=== PATIENT | male | born 1940 | race Caucasian/White ===

== ENCOUNTER → 2018-07-12 14:58 | Outpatient (CLI) | payer MEDICARE, OTHER, SELFPAY ==
--- NOTE | 2018-07-12 15:00 | DI.RAD.S_ITS ---
PROCEDURE: XR WRIST LT MIN 3V INDICATIONS: Left wrist injury TECHNIQUE: 4 views of the wrist were acquired. COMPARISON: None. FINDINGS: Bones: No fractures or dislocations. No suspicious bony lesions. Scattered degenerative spurring and subchondral cystic change Scaphoid view: No fracture identified. Soft tissues: No suspicious soft tissue calcifications. There are scattered vascular calcifications IMPRESSION: No fracture. If the patient's symptoms do not improve consider further evaluation with repeat radiographs in 10 days, or noncontrast MRI. Dictated by: Stewart Celestin M.D. on 07/12/2018 at 16:57 Approved by: Stewart Celestin M.D. on 07/12/2018 at 16:59
== END ==
PROVIDERS: Family Provider Family Medicine; PCP Family Medicine; Visit Provider Registered Nurse
DX: S69.92XA Unspecified injury of left wrist, hand and finger(s), initial encounter (principal)
CPT/HCPCS: 73110

== ENCOUNTER → 2018-12-22 08:45 | Outpatient (CLI) | payer MEDICARE, OTHER, SELFPAY ==
[2018-12-22 10:12] LABS: Add Manual Diff / Slide Review NO; Basophils Absolute Auto 0 /uL (0-100); Basophils Percent Auto 0.5 % (0-2); Eosinophils Absolute Auto 100 /uL (0-450); Hematocrit 43.8 % (41-53); Hemoglobin 14.6 g/dL (13.5-17.5); Lymphocytes Absolute Auto 900 /uL (1100-4500); Lymphocytes Percent Auto 17.8 % (25-40); Mean Corpuscular HGB Conc 33.3 % (30-36); Mean Corpuscular Hemoglobin 31.1 PG (26-34); Mean Corpuscular Volume 93.3 fL (80-100); Monocytes Absolute Auto 500 /uL (0-900); Neutrophils Absolute Auto 3300 /uL (1500-7000); Neutrophils Percent Auto 67.7 % (50-75); Platelet Count 208 X10^3/uL (150-400); Red Blood Cell Count 4.69 X10^6/uL (4.5-5.9); Red Cell Distribution Width 13.5 % (11.6-14.8); White Blood Cell Count 4.9 X10^3/uL (4.5-11.0)
[2018-12-22 10:21] LABS: Alanine Aminotransferase 30 IU/L (21-72); Albumin 4.1 g/dL (3.5-5.0); Albumin Globulin Ratio 1.4 (1.0-2.8); Alkaline Phosphatase 64 U/L (38-126); Aspartate Aminotransferase 33 IU/L (17-59); BUN Creatinine Ratio 22.2 (6-22); Bilirubin Total 0.6 mg/dL (0.2-1.3); Blood Urea Nitrogen 20 mg/dL (9-20); Calcium 8.9 mg/dL (8.4-10.2); Carbon Dioxide 28 mmol/L (22-32); Chloride 102 mmol/L (98-107); Cholesterol 197 mg/dL (140-199); Estimated Glomerular Filt Rate > 60.0 mL/min (>60); Glucose 100 mg/dL (80-110); HDL Cholesterol 63 mg/dL (40-60); HEMOLYSIS < 15 (0-50); LDL Cholesterol Calculated 120 mg/dL (<100); Potassium 4.7 mmol/L (3.4-5.1); Sodium 137 mmol/L (137-145); Total Protein 7.1 g/dL (6.3-8.2); Triglycerides 68 mg/dL (35-150)
== END ==
PROVIDERS: PCP Family Medicine; Visit Provider Family Medicine
DX: I10 Essential (primary) hypertension (principal); R00.2 Palpitations; R07.89 Other chest pain; R89.9 Unspecified abnormal finding in specimens from other organs, systems and tissues; Z13.0 Encounter for screening for diseases of the blood and blood-forming organs and certain disorders involving the immune mechanism; Z13.1 Encounter for screening for diabetes mellitus; Z13.220 Encounter for screening for lipoid disorders; Z13.29 Encounter for screening for other suspected endocrine disorder
CPT/HCPCS: 36415; 80053; 80061; 84443; 85025

== ENCOUNTER → 2019-06-13 09:55 | Outpatient (CLI) | payer MEDICARE, OTHER, SELFPAY ==
[2019-06-13 11:04] LABS: Prostate Specific Antigen 1.86 ng/mL (0.10-4.00)
== END ==
PROVIDERS: Family Provider Family Medicine; PCP Family Medicine; Visit Provider Nurse Practitioner Family
DX: R30.0 Dysuria (principal); Z12.5 Encounter for screening for malignant neoplasm of prostate
CPT/HCPCS: 36415; 84153; G0103

== ENCOUNTER 2019-12-01 16:29 | Inpatient (IN) | payer MEDICARE, OTHER, SELFPAY ==
[2019-12-01] VITALS (23 sets, daily range): BP systolic 71–196; BP diastolic 40–96; PULSE 39–66; RESP 15–30; TEMP 36.2–36.8; O2SAT 94–100; BMI 22.4
--- NOTE | 2019-12-01 16:43 | DI.RAD.S_ITS ---
PROCEDURE: XR RIBS BI MIN 4V W CXR1V INDICATIONS: fell, 2 days ago, now with left rib and back pain. TECHNIQUE: 4 views of the bilateral ribs were acquired, along with a single view chest. COMPARISON: None. FINDINGS: Surgical changes and devices: None. Bones and chest wall: There is a potential minimally displaced left posterior 12th rib fracture. No displaced right-sided rib fractures are seen. Remote left posterolateral rib fractures are seen. Age-appropriate bony degenerative changes are seen. No suspicious lytic or blastic lesions are seen. Lungs and pleura: There is a moderate left-sided pneumothorax seen. No pleural effusions. Lungs appear clear. Mediastinum: Mediastinal contours appear normal. Heart size is normal. IMPRESSION: There is a moderate left-sided pneumothorax. Potential minimally displaced left posterior 12th rib fracture. Remote left posterior rib fractures are also seen. Note: A critical finding of pneumothorax discussed by telephone with Dr. Bhardwaj at 5:34 PM on December 01, 2019. Dictated by: Dale Arnold M.D. on 12/01/2019 at 17:32 Approved by: Dale Arnold M.D. on 12/01/2019 at 17:35
--- NOTE | 2019-12-01 17:45 | ED.TRAUMA ---
HPI - Trauma <EUGENE Azevedo - Last Filed: 12/01/19 23:21> General Chief Complaint: Trauma Stated Complaint: rib pain s/p fall Time Seen by Provider: 12/01/19 16:59 Source: patient and family Mode of arrival: Ambulatory Limitations: no limitations History of Present Illness HPI narrative: This is a highly functioning 79-year-old gentleman, nonsmoker, who presents to ED with significant other with chief complain of left side and rib pain. Reports fell on a icy ground and landed on left side ribs 2 days ago while he was in [facility]. He was visiting [facility] for back country skiing. Patient denies hitting his head or injuring other area. He denies loss of consciousness, mid cervical tenderness, tingling or numbness to his limbs. Patient reports he was at a remote area and was initially evaluated by EMS and he decided to come in to ED today when he return to home. Patient reports pain increases with certain movements, coughing, sneezing. Patient denies chest pain, breathing difficulty, or dizziness. Patient reports there is no dysuria, hematuria or urinary retention but no bowel movement for 2 days.. Patient reports pain is about 2/10 while in rest and this increases to 9/10 with movements. Patient takes baby aspirin daily but no other prescribed medications. He has been taking Advil 200 mg about every 4 hours for pain. Significant other is concerned with patient's elevated blood pressure while in ED stating his usual blood pressure is in 140s systolic. Related Data Home Medications Medication Instructions Recorded Confirmed aspirin 81 mg tablet,delayed 81 mg PO DAILY 05/26/19 12/01/19 release calcium polycarbophil [Fiber-Tabs] 625 mg PO DAILY 12/01/19 12/01/19 [id number] borate 1 tab PO DAILY 12/01/19 12/01/19 [Move Free Modulus Video [facility]] ibuprofen [Advil] 200 mg PO Q4H PRN 12/01/19 12/01/19 multivitamin 1 tab PO DAILY 12/01/19 12/01/19 Allergies Allergy/AdvReac Type Severity Reaction Status Date / Time No Known Drug Allergies Allergy Unverified 06/17/19 12:08 Review of Systems <EUGENE Azevedo - Last Filed: 12/01/19 23:21> Review of Systems Narrative: General: Denies fever, chills, fatigue, malaise, sweats. HEENT: Denies sinus pain, ear pain, sore throat, difficulty swallowing, dizziness. Respiratory: Denies dyspnea, cough, wheezing, hemoptysis, sputum. Cardiovascular: Denies left lateral rib pain which occasionally radiated to anterior chest with cough, movement. Denies palpitations, orthopnea, edema. Gastrointestinal: Denies nausea, vomiting, abdominal pain, diarrhea, constipation, melena. : Denies dysuria, frequency, incontinence, hematuria, urinary retention. Musculoskeletal: See HPI Skin: Denies rash, skin lesions, or other. Neurologic: Denies weakness, headache, numbness, change in speech, confusion, seizures, incoordination. Psychiatric: No concerning psychosocial issues. 12-point review of systems is negative except for those stated above. Patient History <EUGENE Azevedo - Last Filed: 12/01/19 23:21> Surgical History (Updated 12/02/19 @ 01:57 by EUGENE Campuzano) History of Mohs surgery for squamous cell carcinoma in situ of skin (Acute) History of tonsillectomy Family History Father Cancer Mother Cancer Grandfather Cancer Sister Age: 90 Dementia Social History household members: spouse Smoking Status: Never smoker alcohol intake: current Smoking Status: Never smoker Exam <EUGENE Azevedo - Last Filed: 12/01/19 23:21> Narrative Exam Narrative: GEN: Alert, oriented x 3, well appearing and nourished, and in no acute distress. Head: Normal cephalic, atraumatic. No scalp or temporal tenderness, palpable mass or rash. EYES: Pupils are equal, round, and reactive to light and accommodation. Extraocular muscles are intact bilaterally. There is no subconjunctival hemorrhage, exudate and sclera non-icteric. ENT: Hearing grossly intact. Nose without bleeding, purulent discharge or deviation. Mucous membrane moist, no mucosal lesion. Throat without erythema, tonsillar hypertrophy or exudate. Uvula in midline, airway patent. Neck: Trachea in midline. No JVD, non-tender without lymphadenopathy. No masses or thyroid megaly. Supple, non-tender and no meningeal signs. CARDIAC: Normal regular rate and rhythm without murmurs, gallops, or rubs. Left lateral and posterior chest wall tenderness to palpate. No peripheral edema, cyanosis or pallor. Capillary refill is less than 2 seconds. RESPIRATORY: Lungs are clear to auscultate in right lobes and mildly decreased on left upper lobes. No cough, wheezes, rales, or rhonchi. No stridor, respiratory distress, increase work of breathing, or accessary muscle used. ABD: Abdomen soft, nontender and non-distended. No guarding or rebound tenderness to palpate. Bowel sounds are normal in all 4 quadrants. There is no palpable masses or organomegaly. EXT: Full painless ROM of all extremities with no loss of sensation, strength, effusion or edema. SKIN: Warm, dry, normal color for patient. No erythema, lesions or rash over visible areas. BACK: Left mid back tenderness to palpate. No flank tenderness. NEUROLOGICAL: Alert and oriented to place, time and person. Sensation and motor function intact bilaterally. No facial droops, dysphasia. PSYCHIATRIC: Good judgement and reason, without hallucinations, abnormal affect or abnormal behaviors during the examination. Initial Vital Signs Initial Vital Signs: Vital Signs Temperature 97.1 F L 12/01/19 16:44 Pulse Rate 56 L 12/01/19 16:44 Respiratory Rate 12/01/19 16:44 Blood Pressure 182/88 H 12/01/19 16:44 Pulse Oximetry 97 12/01/19 16:44 <Marcela Bhardwaj DO - Last Filed: 12/02/19 20:39> Initial Vital Signs Initial Vital Signs: Vital Signs Temperature 97.1 F L 12/01/19 16:44 Pulse Rate 56 L 12/01/19 16:44 Respiratory Rate 12/01/19 16:44 Blood Pressure 182/88 H 12/01/19 16:44 Pulse Oximetry 97 12/01/19 16:44 Procedures <EUGENE Azevedo - Last Filed: 12/01/19 23:21> Chest Tube Chest Tube 1: Chest Tube Location: left Progress: Dr. Oquendo has consulted and chest tube has been inserted by Dr. Azra at the bedside. Scores <Sebastian CarsonEUGENE - Last Filed: 12/01/19 23:21> GCS [place] coma scale eye opening: Spontaneous [place] coma scale verbal response: Orientated [place] coma scale motor response: Obey commands [place] coma scale total score: 15 Course <Sebastian CarsonEUGENE - Last Filed: 12/01/19 23:21> Orders Ordered: Acetaminophen (Tylenol) 650 mg PO Q6HR PRN PRN Reason: Fever/Mild Pain (1-3) Last Admin: 12/02/19 20:22 Dose: 650 mg Documented by: Admin: 12/02/19 14:35 Dose: 650 mg Documented by: ANTHONY Hydrocodone Bitart/Acetaminophen ([place] 5/325) 1 tab PO Q4HR PRN PRN Reason: Pain, Moderate (4-6) Last Admin: 12/02/19 01:41 Dose: 1 tab Documented by: YAA Docusate Sodium (Colace) 100 mg PO BID [facility] Last Admin: 12/02/19 20:21 Dose: 100 mg Documented by: Admin: 12/02/19 08:07 Dose: 100 mg Documented by: Admin: 12/01/19 23:22 Dose: 100 mg Documented by: YAA Enoxaparin Sodium (Lovenox) 40 mg SUBCUT DAILY [facility] Last Admin: 12/02/19 08:07 Dose: 40 mg Documented by: ANTHONY Lidocaine (Lidoderm) 1 each TOP DAILY [facility] Last Admin: 12/02/19 14:37 Dose: 1 each Documented by: ANTHONY Lidocaine (Lidoderm (Remove Patch)) 1 each TOP BEDTIME [facility] Morphine Sulfate (Morphine) 2 mg IV Q4HR PRN PRN Reason: Pain, Severe (7-10) Last Admin: 12/01/19 23:21 Dose: 2 mg Documented by: YAA Naloxone HCl (Narcan) 0.2 mg IV Q2MIN PRN PRN Reason: Opiate Reversal Ondansetron HCl (Zofran) 4 mg IV Q8HR PRN PRN Reason: Nausea And Vomiting Polyethylene Glycol (Miralax) 17 gm PO BID PRN PRN Reason: constipation Last Admin: 12/02/19 14:21 Dose: 17 gm Documented by: ANTHONY Sodium Chloride (Normal Saline 0.9% Flush) 10 ml IV PRN PRN PRN Reason: Flush Sodium Chloride (Normal Saline 0.9% Flush) 10 ml IV BID [facility] Last Admin: 12/02/19 20:21 Dose: 10 ml Documented by: CHRISTI Discontinued Medications Enalaprilat (Enalaprilat) 2.5 mg IV Q6HR [facility] Last Admin: 12/02/19 05:54 Dose: Not Given Documented by: YAA Fentanyl (Sublimaze) 50 mcg IV NOW ONE Stop: 12/01/19 21:16 Last Admin: 12/01/19 21:38 Dose: 50 mcg Documented by: JAMMIE Sodium Chloride (Normal Saline 0.9%) 1,000 mls @ 150 mls/hr IV CONT [facility] Last Admin: 12/01/19 22:28 Dose: Not Given Documented by: JAMMIE Sodium Chloride (Normal Saline 0.9%) 1,000 mls @ 1,000 mls/hr IV BOLUS ONE Stop: 12/01/19 22:34 Last Infusion: 12/01/19 22:27 Dose: 125 mls/hr Documented by: Admin: 12/01/19 21:39 Dose: 1,000 mls/hr Documented by: JAMMIE Sodium Chloride (Normal Saline 0.9%) 1,000 mls @ 100 mls/hr IV CONT [facility] Last Infusion: 12/02/19 09:21 Dose: 0 mls/hr Documented by: Admin: 12/02/19 05:52 Dose: 100 mls/hr Documented by: Infusion: 12/02/19 05:52 Dose: 100 mls/hr Documented by: Admin: 12/01/19 23:22 Dose: 100 mls/hr Documented by: YAA Lidocaine HCl (Xylocaine 1%) 20 ml INJ INTRA-OP ONE Stop: 12/01/19 20:59 Last Admin: 12/01/19 21:10 Dose: 20 ml Documented by: JAMMIE Lidocaine HCl (Xylocaine 1% (Pf)) 6 ml SUBCUT NOW ONE Stop: 12/01/19 21:06 Last Admin: 12/01/19 22:28 Dose: Not Given Documented by: JAMMIE Vital Signs Vital signs: Vital Signs - 8 hr 12/01/19 16:44 12/01/19 17:30 12/01/19 17:32 Temperature 97.1 F L Pulse Rate 56 L 51 L 53 L Respiratory Rate 20 17 18 Blood Pressure 182/88 H 175/90 H Blood Pressure [Right Arm] 192/90 H Pulse Oximetry 97 97 100 12/01/19 17:59 12/01/19 18:03 12/01/19 18:31 Temperature Pulse Rate 51 L 53 L 52 L Respiratory Rate 25 H 16 17 Blood Pressure Blood Pressure [Right Arm] 167/85 H 163/81 H 175/77 H Pulse Oximetry 100 100 100 12/01/19 18:53 12/01/19 19:00 12/01/19 19:30 Temperature Pulse Rate 51 L 50 L 50 L Respiratory Rate 15 16 16 Blood Pressure Blood Pressure [Right Arm] 175/77 H 162/79 H 174/79 H Pulse Oximetry 100 100 100 12/01/19 20:00 12/01/19 21:09 12/01/19 21:29 Temperature Pulse Rate 52 L 66 39 L Respiratory Rate 15 18 25 H Blood Pressure Blood Pressure [Right Arm] 169/80 H 196/77 H 72/40 L Pulse Oximetry 100 96 96 12/01/19 21:30 12/01/19 21:32 12/01/19 21:35 Temperature Pulse Rate 39 L 42 L 44 L Respiratory Rate 23 25 H 30 H Blood Pressure Blood Pressure [Right Arm] 71/41 L 74/42 L 89/52 L Pulse Oximetry 96 94 95 12/01/19 21:41 12/01/19 21:45 12/01/19 21:50 Temperature Pulse Rate 53 L 53 L 52 L Respiratory Rate 22 24 25 H Blood Pressure Blood Pressure [Right Arm] 140/69 154/80 H 170/86 H Pulse Oximetry 95 95 96 12/01/19 21:55 12/01/19 22:00 12/01/19 22:35 Temperature Pulse Rate 52 L 55 L 51 L Respiratory Rate 23 24 18 Blood Pressure Blood Pressure [Right Arm] 165/85 H 178/96 H 159/78 H Pulse Oximetry 97 97 97 <Marcela Bhardwaj DO - Last Filed: 12/02/19 20:39> Orders Ordered: Acetaminophen (Tylenol) 650 mg PO Q6HR PRN PRN Reason: Fever/Mild Pain (1-3) Last Admin: 12/02/19 20:22 Dose: 650 mg Documented by: Admin: 12/02/19 14:35 Dose: 650 mg Documented by: ANTHONY Hydrocodone Bitart/Acetaminophen ([place] 5/325) 1 tab PO Q4HR PRN PRN Reason: Pain, Moderate (4-6) Last Admin: 12/02/19 01:41 Dose: 1 tab Documented by: YAA Docusate Sodium (Colace) 100 mg PO BID [facility] Last Admin: 12/02/19 20:21 Dose: 100 mg Documented by: Admin: 12/02/19 08:07 Dose: 100 mg Documented by: Admin: 12/01/19 23:22 Dose: 100 mg Documented by: YAA Enoxaparin Sodium (Lovenox) 40 mg SUBCUT DAILY [facility] Last Admin: 12/02/19 08:07 Dose: 40 mg Documented by: ANTHONY Lidocaine (Lidoderm) 1 each TOP DAILY [facility] Last Admin: 12/02/19 14:37 Dose: 1 each Documented by: ANTHONY Lidocaine (Lidoderm (Remove Patch)) 1 each TOP BEDTIME [facility] Morphine Sulfate (Morphine) 2 mg IV Q4HR PRN PRN Reason: Pain, Severe (7-10) Last Admin: 12/01/19 23:21 Dose: 2 mg Documented by: YAA Naloxone HCl (Narcan) 0.2 mg IV Q2MIN PRN PRN Reason: Opiate Reversal Ondansetron HCl (Zofran) 4 mg IV Q8HR PRN PRN Reason: Nausea And Vomiting Polyethylene Glycol (Miralax) 17 gm PO BID PRN PRN Reason: constipation Last Admin: 12/02/19 14:21 Dose: 17 gm Documented by: ANTHONY Sodium Chloride (Normal Saline 0.9% Flush) 10 ml IV PRN PRN PRN Reason: Flush Sodium Chloride (Normal Saline 0.9% Flush) 10 ml IV BID [facility] Last Admin: 12/02/19 20:21 Dose: 10 ml Documented by: CHRISTI Discontinued Medications Enalaprilat (Enalaprilat) 2.5 mg IV Q6HR [facility] Last Admin: 12/02/19 05:54 Dose: Not Given Documented by: YAA Fentanyl (Sublimaze) 50 mcg IV NOW ONE Stop: 12/01/19 21:16 Last Admin: 12/01/19 21:38 Dose: 50 mcg Documented by: JAMMIE Sodium Chloride (Normal Saline 0.9%) 1,000 mls @ 150 mls/hr IV CONT [facility] Last Admin: 12/01/19 22:28 Dose: Not Given Documented by: JAMMIE Sodium Chloride (Normal Saline 0.9%) 1,000 mls @ 1,000 mls/hr IV BOLUS ONE Stop: 12/01/19 22:34 Last Infusion: 12/01/19 22:27 Dose: 125 mls/hr Documented by: Admin: 12/01/19 21:39 Dose: 1,000 mls/hr Documented by: JAMMIE Sodium Chloride (Normal Saline 0.9%) 1,000 mls @ 100 mls/hr IV CONT [facility] Last Infusion: 12/02/19 09:21 Dose: 0 mls/hr Documented by: Admin: 12/02/19 05:52 Dose: 100 mls/hr Documented by: Infusion: 12/02/19 05:52 Dose: 100 mls/hr Documented by: Admin: 12/01/19 23:22 Dose: 100 mls/hr Documented by: YAA Lidocaine HCl (Xylocaine 1%) 20 ml INJ INTRA-OP ONE Stop: 12/01/19 20:59 Last Admin: 12/01/19 21:10 Dose: 20 ml Documented by: JAMMIE Lidocaine HCl (Xylocaine 1% (Pf)) 6 ml SUBCUT NOW ONE Stop: 12/01/19 21:06 Last Admin: 12/01/19 22:28 Dose: Not Given Documented by: JAMMIE Vital Signs Vital signs: Vital Signs - 8 hr 12/01/19 16:44 12/01/19 17:30 12/01/19 17:32 Temperature 97.1 F L Pulse Rate 56 L 51 L 53 L Respiratory Rate 20 17 18 Blood Pressure 182/88 H 175/90 H Blood Pressure [Right Arm] 192/90 H Pulse Oximetry 97 97 100 12/01/19 17:59 12/01/19 18:03 12/01/19 18:31 Temperature Pulse Rate 51 L 53 L 52 L Respiratory Rate 25 H 16 17 Blood Pressure Blood Pressure [Right Arm] 167/85 H 163/81 H 175/77 H Pulse Oximetry 100 100 100 12/01/19 18:53 12/01/19 19:00 12/01/19 19:30 Temperature Pulse Rate 51 L 50 L 50 L Respiratory Rate 15 16 16 Blood Pressure Blood Pressure [Right Arm] 175/77 H 162/79 H 174/79 H Pulse Oximetry 100 100 100 12/01/19 20:00 12/01/19 21:09 12/01/19 21:29 Temperature Pulse Rate 52 L 66 39 L Respiratory Rate 15 18 25 H Blood Pressure Blood Pressure [Right Arm] 169/80 H 196/77 H 72/40 L Pulse Oximetry 100 96 96 12/01/19 21:30 12/01/19 21:32 12/01/19 21:35 Temperature Pulse Rate 39 L 42 L 44 L Respiratory Rate 23 25 H 30 H Blood Pressure Blood Pressure [Right Arm] 71/41 L 74/42 L 89/52 L Pulse Oximetry 96 94 95 12/01/19 21:41 12/01/19 21:45 12/01/19 21:50 Temperature Pulse Rate 53 L 53 L 52 L Respiratory Rate 22 24 25 H Blood Pressure Blood Pressure [Right Arm] 140/69 154/80 H 170/86 H Pulse Oximetry 95 95 96 12/01/19 21:55 12/01/19 22:00 12/01/19 22:35 Temperature Pulse Rate 52 L 55 L 51 L Respiratory Rate 23 24 18 Blood Pressure Blood Pressure [Right Arm] 165/85 H 178/96 H 159/78 H Pulse Oximetry 97 97 97 MDM - Trauma <EUGENE Azevedo - Last Filed: 12/01/19 23:21> Differential Diagnosis Differential diagnosis: Likely other (Rib fracture, pneumothorax, contusion to ribs) Medical Records Attestation: I reviewed the patient's medical records. Lab Data Attestation: I reviewed the patient's lab results. Result diagrams: 12/01/19 17:25 12/02/19 17:55 Labs: Lab Results 12/01/19 12/01/19 Range/Units 17:25 17:25 WBC 5.8 (4.5-11.0) X10^3/uL RBC 5.01 (4.5-5.9) X10^6/uL Hgb 15.7 (13.5-17.5) g/dL Hct 46.6 (41-53) % MCV 92.9 (80-100) fL MCH 31.3 (26-34) PG MCHC 33.7 (30-36) % RDW 13.1 (11.6-14.8) % Plt Count 232 (150-400) X10^3/uL Neut % (Auto) 65.6 (50-75) % Lymph % (Auto) 20.2 L (25-40) % [place] % (Auto) 11.3 (3-14) % Eos % (Auto) 2.6 (2-4) % Baso % (Auto) 0.3 (0-2) % Neut # (Auto) 3800 (0874-7559) /uL Lymph # (Auto) 1200 (3206-6521) /uL [place] # (Auto) 700 (0-900) /uL Eos # (Auto) 200 (0-450) /uL Baso # (Auto) 0 (0-100) /uL Sodium 139 (137-145) mmol/L Potassium 4.5 (3.4-5.1) mmol/L Chloride 101 (98-107) mmol/L Carbon Dioxide 28 (22-32) mmol/L BUN 20 (9-20) mg/dL Creatinine 0.80 (0.66-1.25) mg/dL Estimated GFR > 60.0 (>60) mL/min BUN/Creatinine Ratio 25.0 H (6-22) Glucose 109 (80-110) mg/dL Calcium 9.6 (8.4-10.2) mg/dL Total Bilirubin 0.7 (0.2-1.3) mg/dL AST 38 (17-59) IU/L ALT 24 (<50) IU/L Alkaline Phosphatase 77 (38-126) U/L Total Protein 8.1 (6.3-8.2) g/dL Albumin 4.5 (3.5-5.0) g/dL Globulin 3.6 (1.7-4.1) g/dL Albumin/Globulin Ratio 1.3 (1.0-2.8) Lipase 55 (23-300) U/L Imaging Data XR-Ribs and chest: Radiologist's Impression: [address] [address] XRay Report Signed Patient: Xavi Stacy [facility]#: [id number] : 1940Acct:[id number] Age/Sex: 79 / MDate of Service: 12/01/19 Loc: ED Accession Number: [id number] Procedure: XR ribs BI min 4V w CXR1V Ordering Provider: Marcela Bhardwaj D.O. PROCEDURE: XR RIBS BI MIN 4V W CXR1V INDICATIONS: fell, 2 days ago, now with left rib and back pain. TECHNIQUE: 4 views of the bilateral ribs were acquired, along with a single view chest. COMPARISON: None. FINDINGS: Surgical changes and devices: None. Bones and chest wall: There is a potential minimally displaced left posterior 12th rib fracture. No displaced right-sided rib fractures are seen. Remote left posterolateral rib fractures are seen. Age-appropriate bony degenerative changes are seen. No suspicious lytic or blastic lesions are seen. Lungs and pleura: There is a moderate left-sided pneumothorax seen. No pleural effusions. Lungs appear clear. Mediastinum: Mediastinal contours appear normal. Heart size is normal. IMPRESSION: There is a moderate left-sided pneumothorax. Potential minimally displaced left posterior 12th rib fracture. Remote left posterior rib fractures are also seen. Note: A critical finding of pneumothorax discussed by telephone with Dr. Bhardwaj at 5:34 PM on December 01, 2019. [facility] Narrative Medical decision making narrative: Patient had left-sided rib injury 2 days ago. Stable H&H with unremarkable chemistry and liver function test with lipase. Abdominal physical exam was benign without distension, tender to palpate, Souleymane's or Christianson-Imr signs. Patient denied exhibited any respiratory distress or increase work of breathing and keeping O2 sat at 97% in room air. Initial rib this with chest x-ray showed a potential minimally displaced left posterior 12th rib fracture with a moderate left-sided pneumothorax seen. Normal mediastinal contours. Radiologist called ER to inform this report. Dr. Oquendo, surgeon, was consulted but will not be available for about 1.5 our due to his in surgery currently. The patient was provided NRB on 15L for pneumothorax treatment during the wait and patient declines medications for pain at this time. Dr. Oquendo arrived at 2029 and discussed the procedure with patient and significant other and left-sided chest tube was inserted at the bedside with patient's consent. The patient was provided with fentanyl 50 mcg during the procedure and shortly after the medication administration, had a brief period of hypotension and patient denies chest pain, breathing difficulty or dizziness at this time. Patient provided about 250 of bolus and shortly after his blood pressure return to his previous range. Post chest tube x-ray shows a small remaining left-sided pneumothorax. Patient was kindly accepted by hospitalist and Rosario gaffney with Dr. Oquendo's consultation for management of chest tube, pneumothorax and pain management. <Marcela Al Bhardwaj, DO - Last Filed: 12/02/19 20:39> Lab Data Labs: Lab Results 12/01/19 12/01/19 Range/Units 17:25 17:25 WBC 5.8 (4.5-11.0) X10^3/uL RBC 5.01 (4.5-5.9) X10^6/uL Hgb 15.7 (13.5-17.5) g/dL Hct 46.6 (41-53) % MCV 92.9 (80-100) fL MCH 31.3 (26-34) PG MCHC 33.7 (30-36) % RDW 13.1 (11.6-14.8) % Plt Count 232 (150-400) X10^3/uL Neut % (Auto) 65.6 (50-75) % Lymph % (Auto) 20.2 L (25-40) % [place] % (Auto) 11.3 (3-14) % Eos % (Auto) 2.6 (2-4) % Baso % (Auto) 0.3 (0-2) % Neut # (Auto) 3800 (9622-5893) /uL Lymph # (Auto) 1200 (0507-0319) /uL [place] # (Auto) 700 (0-900) /uL Eos # (Auto) 200 (0-450) /uL Baso # (Auto) 0 (0-100) /uL Sodium 139 (137-145) mmol/L Potassium 4.5 (3.4-5.1) mmol/L Chloride 101 (98-107) mmol/L Carbon Dioxide 28 (22-32) mmol/L BUN 20 (9-20) mg/dL Creatinine 0.80 (0.66-1.25) mg/dL Estimated GFR > 60.0 (>60) mL/min BUN/Creatinine Ratio 25.0 H (6-22) Glucose 109 (80-110) mg/dL Calcium 9.6 (8.4-10.2) mg/dL Total Bilirubin 0.7 (0.2-1.3) mg/dL AST 38 (17-59) IU/L ALT 24 (<50) IU/L Alkaline Phosphatase 77 (38-126) U/L Total Protein 8.1 (6.3-8.2) g/dL Albumin 4.5 (3.5-5.0) g/dL Globulin 3.6 (1.7-4.1) g/dL Albumin/Globulin Ratio 1.3 (1.0-2.8) Lipase 55 (23-300) U/L MDM Narrative Medical decision making narrative: Patient seen here in the department, patient has a pneumothorax likely from a traumatic fall 2 days ago. He is stable here and slightly hypertensive in the department. Oxygenation has been appropriate with no acute respiratory distress. Patient was also seen by myself in the department. General surgery was consulted who kindly placed a chest tube for the patient. They asked for admission to Medicine. Patient tolerated the procedure fairly well although he did have a drop in his blood pressure shortly after he did receive fentanyl and a small fluid bolus and patient's pressure improved with this. Discharge Plan Departure Patient Disposition: Admitted As Inpatient Clinical Impression: Traumatic fracture of ribs of left side with pneumothorax Fall due to slipping on ice or snow Qualifiers: Encounter type: initial encounter Qualified Code(s): W00.9XXA - Unspecified fall due to ice and snow, initial encounter Discharge Date/Time: 12/01/19 23:15 Admit Date/Time: 12/01/19 22:37 Admit Provider: Sapna Celestin
--- NOTE | 2019-12-01 18:01 | PC.NURSE ---
patient was put on highflow 02 not because of low sats but to help expand the lung. Patient's xray shows moderate left pneumo No effusion and suggested to put high flow 02 on him. Patient is very stable and not showing any respiratory distress at all. Consult to the surgeon done and he will come down when done in surger.
[2019-12-01 18:23] LABS: Add Manual Diff / Slide Review NO; Basophils Absolute Auto 0 /uL (0-100); Basophils Percent Auto 0.3 % (0-2); Eosinophils Absolute Auto 200 /uL (0-450); Eosinophils Percent Auto 2.6 % (2-4); Hematocrit 46.6 % (41-53); Hemoglobin 15.7 g/dL (13.5-17.5); Lymphocytes Absolute Auto 1200 /uL (1100-4500); Lymphocytes Percent Auto 20.2 % (25-40); Mean Corpuscular HGB Conc 33.7 % (30-36); Mean Corpuscular Hemoglobin 31.3 PG (26-34); Mean Corpuscular Volume 92.9 fL (80-100); Monocytes Absolute Auto 700 /uL (0-900); Monocytes Percent Auto 11.3 % (3-14); Neutrophils Absolute Auto 3800 /uL (1500-7000); Neutrophils Percent Auto 65.6 % (50-75); Platelet Count 232 X10^3/uL (150-400); Red Blood Cell Count 5.01 X10^6/uL (4.5-5.9); Red Cell Distribution Width 13.1 % (11.6-14.8); White Blood Cell Count 5.8 X10^3/uL (4.5-11.0)
[2019-12-01 18:29] LABS: Alanine Aminotransferase 24 IU/L (<50); Albumin 4.5 g/dL (3.5-5.0); Albumin Globulin Ratio 1.3 (1.0-2.8); Alkaline Phosphatase 77 U/L (38-126); Aspartate Aminotransferase 38 IU/L (17-59); Bilirubin Total 0.7 mg/dL (0.2-1.3); Blood Urea Nitrogen 20 mg/dL (9-20); Calcium 9.6 mg/dL (8.4-10.2); Carbon Dioxide 28 mmol/L (22-32); Chloride 101 mmol/L (98-107); Estimated Glomerular Filt Rate > 60.0 mL/min (>60); Globulin 3.6 g/dL (1.7-4.1); Glucose 109 mg/dL (80-110); HEMOLYSIS 22 (0-50); Lipase 55 U/L (23-300); Potassium 4.5 mmol/L (3.4-5.1); Sodium 139 mmol/L (137-145); Total Protein 8.1 g/dL (6.3-8.2)
[2019-12-01] MEDS: LIDOCAINE 1% 20 ML INJ (21:10)
--- NOTE | 2019-12-01 21:34 | DI.RAD.S_ITS ---
PROCEDURE: XR CHEST 1V INDICATIONS: post chest tube placement TECHNIQUE: One view of the chest was acquired. COMPARISON: [facility], CR, XR RIBS BI MIN 4V W CXR1V, 12/01/2019, 16:51. FINDINGS: Surgical changes and devices: A left-sided chest tube has been placed. Lungs and pleura: There is a small remaining left-sided pneumothorax. Lung volumes are low. Mediastinum: Mediastinal contours appear normal. Heart size is normal. Bones and chest wall: No suspicious bony lesions. Age-appropriate bony degenerative changes are seen. A small amount soft tissue gas is seen. IMPRESSION: Placement of a left-sided chest tube, with a small left-sided pneumothorax remaining. Dictated by: Dale Arnold M.D. on 12/01/2019 at 21:50 Approved by: Dale Arnold M.D. on 12/01/2019 at 21:51
[2019-12-01] MEDS: fentaNYL 100 MCG/2 ML INJ 50 MCG IV (21:38)
[2019-12-01] MEDS: SODIUM CHLORIDE 0.9% 1,000 ML 1000 ML IV (21:39)
--- NOTE | 2019-12-01 21:40 | PC.NURSE ---
Assisted surgeon with placement of chest tube. Dr. Oquendo obtained verbal consent for placement of chest tube. Pt did have increased pain half way through placement of Chest tube and was medicated with Fentanyl. BP throughout procedure was at 200. After fentanyl given and placement of chest tube, BP dropped to 70s. Provider aware. a Bolus of normal saline was started and pt states feeling light headed. after about 15 min of saline infusing, pt states pain has decreased and Sbp up to 140s at this time. Pt would like [facility], provider would like patient to try ice chips before going to [facility].
--- NOTE | 2019-12-01 21:40 | PM.HP.1 ---
History of Present Illness History of Present Illness Date Patient Seen: 12/01/19 Time Patient Seen: 21:43 Chief complaint: rib pain s/p fall Narrative: This 79-year-old male who sustained a mechanical ground level fall 48 hours ago. He landed striking his left chest is been having some chest pain over the past 2 days and this is what prompted his emergency room visit. He has no shortness of breath and is only pain is the left chest, worse with inspiration. He takes no blood thinners his past medical history is unremarkable. Chest x-ray demonstrates a moderate left pneumothorax, no pleural effusion or hemothorax. He did not strike his head did not lose consciousness has no abdominal pain nausea vomiting. Patient History Surgical History History of tonsillectomy Family & Social History Family History Father Cancer Mother Cancer Grandfather Cancer Sister Age: 90 Dementia Safety & Behavioral: Feels Safe in Current Yes Environment Been Physically Hurt or No Threatened By a Person Tobacco & Substance use: Smoking Status Never smoker Meds Home Medications and Allergies Home Medications Medication Instructions Recorded Confirmed Type aspirin 81 mg tablet,delayed 81 mg PO DAILY 05/26/19 12/01/19 History release calcium polycarbophil [Fiber-Tabs] 625 mg PO DAILY 12/01/19 12/01/19 History loarsuvu-hiifo-oltly-CF borate 1 tab PO DAILY 12/01/19 12/01/19 History [[facility] Free [facility]] ibuprofen [Advil] 200 mg PO Q4H PRN 12/01/19 12/01/19 History multivitamin 1 tab PO DAILY 12/01/19 12/01/19 History Allergies Allergy/AdvReac Type Severity Reaction Status Date / Time No Known Drug Allergies Allergy Unverified 06/17/19 12:08 Review of Systems Review of Systems Narrative: A 10 point review of systems is negative except as noted in the HPI Exam Vital Signs (past 8 hours): - 12/01/19 16:44 12/01/19 17:30 12/01/19 17:32 Temperature 97.1 F L Pulse Rate 56 L 51 L 53 L Respiratory Rate 20 17 18 Blood Pressure 182/88 H 175/90 H Blood Pressure [Right Arm] 192/90 H Pulse Oximetry 97 97 100 12/01/19 17:59 12/01/19 18:03 12/01/19 18:31 Temperature Pulse Rate 51 L 53 L 52 L Respiratory Rate 25 H 16 17 Blood Pressure Blood Pressure [Right Arm] 167/85 H 163/81 H 175/77 H Pulse Oximetry 100 100 100 12/01/19 18:53 12/01/19 19:00 12/01/19 19:30 Temperature Pulse Rate 51 L 50 L 50 L Respiratory Rate 15 16 16 Blood Pressure Blood Pressure [Right Arm] 175/77 H 162/79 H 174/79 H Pulse Oximetry 100 100 100 12/01/19 20:00 12/01/19 21:09 12/01/19 21:29 Temperature Pulse Rate 52 L 66 39 L Respiratory Rate 15 18 25 H Blood Pressure Blood Pressure [Right Arm] 169/80 H 196/77 H 72/40 L Pulse Oximetry 100 96 96 12/01/19 21:30 Temperature Pulse Rate 39 L Respiratory Rate 23 Blood Pressure Blood Pressure [Right Arm] 71/41 L Pulse Oximetry 96 Oxygen Delivery Method Non -Rebreather Oxygen Flow Rate 12 Narrative Exam Narrative: General-no acute distress, well nourished HEENT-moist mucous membranes, no scleral icterus Neck-supple, no lymphadenopathy Chest- non labored respirations, clear to auscultation bilaterally Cardiac-regular rate no peripheral edema Abdomen-soft, nontender, non distended Extremities-warm, well perfused Neurological-alert and oriented, no focal deficits Objective Labs Result Diagrams: 12/01/19 17:25 12/01/19 17:25 Labs: Laboratory Results - last 24 hr 12/01/19 12/01/19 17:25 17:25 WBC 5.8 RBC 5.01 Hgb 15.7 Hct 46.6 MCV 92.9 MCH 31.3 MCHC 33.7 RDW 13.1 Plt Count 232 Neut % (Auto) 65.6 Lymph % (Auto) 20.2 L [place] % (Auto) 11.3 Eos % (Auto) 2.6 Baso % (Auto) 0.3 Neut # (Auto) 3800 Lymph # (Auto) 1200 [place] # (Auto) 700 Eos # (Auto) 200 Baso # (Auto) 0 Sodium 139 Potassium 4.5 Chloride 101 Carbon Dioxide 28 BUN 20 Creatinine 0.80 Estimated GFR > 60.0 BUN/Creatinine Ratio 25.0 H Glucose 109 Calcium 9.6 Total Bilirubin 0.7 AST 38 ALT 24 Alkaline Phosphatase 77 Total Protein 8.1 Albumin 4.5 Globulin 3.6 Albumin/Globulin Ratio 1.3 Lipase 55 Assessment & Plan Assessment and plan (1) Pneumothorax, acute: Current visit: Yes Status: Acute Assessment & Plan narrative: 79-year-old man ground level fall with traumatic left pneumothorax. This trauma was 48 hours ago did not strike his head or lose consciousness. I reviewed his chest x-ray which demonstrates a moderate left pneumothorax and perhaps a rib fracture. There is no evidence of effusion or hemothorax on chest x-ray. A left tube thoracostomy is indicated for treatment of the pneumothorax. We discussed the procedure including the risks of bleeding infection cardiac or pulmonary injury. His questions have been answered and he is in agreement. A 20 [place] thoracostomy was placed at the bedside. Recommendations -daily chest x-ray -chest tube to -20 mm of water pressure -Multi Modal pain control
[2019-12-01] MEDS: MORPHINE 2 MG/ML INJ IV (23:21)
[2019-12-01] MEDS: SODIUM CHLORIDE 0.9% 1,000 ML 100 ML IV (23:22)
[2019-12-01] MEDS: DOCUSATE 100 MG CAPSULE PO (23:22)
[2019-12-02] VITALS (8 sets, daily range): BP systolic 132–141; BP diastolic 74–80; PULSE 50–60; RESP 16–21; TEMP 36.6–36.9; O2SAT 96–98
[2019-12-02] MEDS: HYDROCODONE/ACET 5/325 TABLET 1 TAB PO (01:41)
--- NOTE | 2019-12-02 01:50 | P.HP_ITS ---
History of Present Illness History of Present Illness Date Patient Seen: 12/01/19 Time Patient Seen: 22:00 Chief complaint: rib pain s/p fall Narrative: Xavi Stacy is an 79-year-old male who was admitted with a left-sided pneumothorax. He was in his usual state of health and was on a cross-country ski vacation in [place]. Two days ago he was walking his dog outside of his cabin and was quite icy and he fell and landed on the left side. He contacted the local EMS where they assessed him, took his vitals and informed him that they did not feel that he needed emergent transport to a medical facility. They got snowed in for 2 days and did not return to this area until earlier today. He stated that he was not feeling very bad, but just had persistent rib pain and had restricted breathing. He decided to present to the emergency room to make sure that he did break a rib. He denied having any nausea, urinary problems, shortness of breath, chest pain aside from where he had his ribs, he does endorse having constipation since he was injured. Patient has no significant medical history aside from just taking baby aspirin daily. In the emergency department he was found to have a large left-sided pneumothorax. Dr. Oquendo, general surgery came in and placed of chest tube in the patient and requested that the hospitalist service admit the patient. Patient History Surgical History (Updated 12/02/19 @ 01:57 by EUGENE Campuzano) History of Mohs surgery for squamous cell carcinoma in situ of skin (Acute) History of tonsillectomy Family & Social History Family History Father Cancer Mother Cancer Grandfather Cancer Sister Age: 90 Dementia Social History: household members spouse Prior Living Arrangements House Safety & Behavioral: Feels Safe in Current Yes Environment Been Physically Hurt or No Threatened By a Person Suicidal Ideation Description None Suicide Plan Description No Plan Tobacco & Substance use: Smoking Status Never smoker alcohol intake current alcohol intake frequency 0-2 drinks per day Substance Use Type does not use Meds Home Medications and Allergies Home Medications Medication Instructions Recorded Confirmed Type aspirin 81 mg tablet,delayed 81 mg PO DAILY 05/26/19 12/01/19 History release calcium polycarbophil [Fiber-Tabs] 625 mg PO DAILY 12/01/19 12/01/19 History ptqlowoc-yixmb-rjfoh-CF borate 1 tab PO DAILY 12/01/19 12/01/19 History [Move Free [facility]] ibuprofen [Advil] 200 mg PO Q4H PRN 12/01/19 12/01/19 History multivitamin 1 tab PO DAILY 12/01/19 12/01/19 History Allergies Allergy/AdvReac Type Severity Reaction Status Date / Time No Known Drug Allergies Allergy Unverified 06/17/19 12:08 Review of Systems Review of Systems ROS: Yes All systems reviewed with the patient and are negative except as otherwise documented Exam Vital Signs (past 8 hours): - 12/01/19 17:59 12/01/19 18:03 12/01/19 18:31 Temperature Pulse Rate 51 L 53 L 52 L Respiratory Rate 25 H 16 17 Blood Pressure Blood Pressure [Right Arm] 167/85 H 163/81 H 175/77 H Pulse Oximetry 100 100 100 12/01/19 18:53 12/01/19 19:00 12/01/19 19:30 Temperature Pulse Rate 51 L 50 L 50 L Respiratory Rate 15 16 16 Blood Pressure Blood Pressure [Right Arm] 175/77 H 162/79 H 174/79 H Pulse Oximetry 100 100 100 12/01/19 20:00 12/01/19 21:09 12/01/19 21:29 Temperature Pulse Rate 52 L 66 39 L Respiratory Rate 15 18 25 H Blood Pressure Blood Pressure [Right Arm] 169/80 H 196/77 H 72/40 L Pulse Oximetry 100 96 96 12/01/19 21:30 12/01/19 21:32 12/01/19 21:35 Temperature Pulse Rate 39 L 42 L 44 L Respiratory Rate 23 25 H 30 H Blood Pressure Blood Pressure [Right Arm] 71/41 L 74/42 L 89/52 L Pulse Oximetry 96 94 95 12/01/19 21:41 12/01/19 21:45 12/01/19 21:50 Temperature Pulse Rate 53 L 53 L 52 L Respiratory Rate 22 24 25 H Blood Pressure Blood Pressure [Right Arm] 140/69 154/80 H 170/86 H Pulse Oximetry 95 95 96 12/01/19 21:55 12/01/19 22:00 12/01/19 22:35 Temperature Pulse Rate 52 L 55 L 51 L Respiratory Rate 23 24 18 Blood Pressure Blood Pressure [Right Arm] 165/85 H 178/96 H 159/78 H Pulse Oximetry 97 97 97 12/01/19 23:00 12/01/19 23:14 Temperature 98.3 F Pulse Rate 57 L 51 L Respiratory Rate 16 25 H Blood Pressure 161/86 H 146/78 H Blood Pressure [Right Arm] Pulse Oximetry 98 97 Oxygen Delivery Method Room Air Oxygen Flow Rate 0 Narrative Exam Narrative: Gen: Alert, oriented, well-developed 79 y.o. male, appears much younger than stated a HEENT: normocephalic, atraumatic, conjunctiva clear, sclera non-icteric, oral mucosa pink and moist Neck: supple, full ROM Chest: Has a chest tube in the mid axillary mid upper ribs Resp: Lungs CTA, non-labored breathing CV: RRR, no murmur or rubs Abd: soft, non-tender, normoactive BTs Skin: no lesions or rashes, dry and intact Neuro: Alert and oriented X 4 w/no focal deficits Extremities: moves all 4 extremities, is ambulatory, negative Yeimi?s sign Psyche: normal mood and affect. Objective Labs Result Diagrams: 12/01/19 17:25 12/01/19 17:25 Labs: Laboratory Results - last 24 hr 12/01/19 12/01/19 17:25 17:25 WBC 5.8 RBC 5.01 Hgb 15.7 Hct 46.6 MCV 92.9 MCH 31.3 MCHC 33.7 RDW 13.1 Plt Count 232 Neut % (Auto) 65.6 Lymph % (Auto) 20.2 L [place] % (Auto) 11.3 Eos % (Auto) 2.6 Baso % (Auto) 0.3 Neut # (Auto) 3800 Lymph # (Auto) 1200 [place] # (Auto) 700 Eos # (Auto) 200 Baso # (Auto) 0 Sodium 139 Potassium 4.5 Chloride 101 Carbon Dioxide 28 BUN 20 Creatinine 0.80 Estimated GFR > 60.0 BUN/Creatinine Ratio 25.0 H Glucose 109 Calcium 9.6 Total Bilirubin 0.7 AST 38 ALT 24 Alkaline Phosphatase 77 Total Protein 8.1 Albumin 4.5 Globulin 3.6 Albumin/Globulin Ratio 1.3 Lipase 55 Assessment & Plan Assessment & Plan narrative: General Stacy will be admitted as an inpatient for further management of his chest tube. 1. Left-sided traumatic pneumothorax, acute, present on admission - Dr. Oquendo is managing the chest tube - IV morphine and oral hydrocodone APAP for pain 2. Elevated blood pressure without a diagnosis of hypertension - Likely secondary to pain - Enalapril 2.5 mg IV q.6 as needed for systolic blood pressure greater than 180 3. Cardiovascular prevention - Continue aspirin 81 mg p.o. daily FEN: NS at 100 mL/hour, regular diet, chemistries in the am Patient is admitted inpatient his stay is likely to exceed 2 midnights. VTE Prophylaxis: Enoxaparin 40 mg subcu daily Medications reconciled: Patient takes no medications Disposition: Likely home Code Status: Full code Quality VTE Deep Vein Thrombosis/Pulmonary Embolism Present on Admission: No
[2019-12-02 05:44] LABS: BUN Creatinine Ratio 25.7 (6-22); Blood Urea Nitrogen 18 mg/dL (9-20); Calcium 8.3 mg/dL (8.4-10.2); Carbon Dioxide 24 mmol/L (22-32); Chloride 107 mmol/L (98-107); Estimated Glomerular Filt Rate > 60.0 mL/min (>60); Glucose 113 mg/dL (80-110); HEMOLYSIS < 15 (0-50); Potassium 4.2 mmol/L (3.4-5.1); Sodium 137 mmol/L (137-145)
[2019-12-02] MEDS: SODIUM CHLORIDE 0.9% 1,000 ML 100 ML IV (05:52)
[2019-12-02] MEDS: ENOXAPARIN 40 MG/0.4 ML SYRINGE SUBCUT (08:07)
[2019-12-02] MEDS: DOCUSATE 100 MG CAPSULE PO ×2 (08:07→20:21)
--- NOTE | 2019-12-02 09:05 | DI.RAD.S_ITS ---
PROCEDURE: XR CHEST 1V INDICATIONS: pneumonia TECHNIQUE: One view of the chest was acquired. COMPARISON: [facility], CR, XR CHEST 1V, 12/01/2019, 21:36. FINDINGS: Surgical changes and devices: Left chest tube is present trace apical pneumothorax although decreased in size since yesterday. Adjacent small amount of left chest wall soft tissue gas Patchy retrocardiac opacities. Scattered scarring/atelectasis. Mediastinum: Mediastinal contours appear normal. Heart size is normal. Bones and chest wall: No suspicious bony lesions. Overlying soft tissues appear unremarkable. Multiple left-sided rib fractures, chronic. IMPRESSION: Left chest tube as before, with decreasing left apical pneumothorax since yesterday No definite focal consolidation Dictated by: Stewart Celestin M.D. on 12/02/2019 at 10:58 Approved by: Stewart Celestin M.D. on 12/02/2019 at 11:01
--- NOTE | 2019-12-02 10:19 | PC.NURSE ---
Addendum entered by Cecilia Vargas R.N. 12/02/19 14:15: At 1230, chest tube changed to water seal off suction per Dr. Pal verbal and written order. Left chest tube dressing changed by Dr. Pal, Vaseline gauze placed over insertion site, covered with 4X4 gauze and secured with silk tape, pt tolerated fair. Witnessed by this RN. Original Note: Day Shift- Pt A&OX4, able to make needs known using call light. Bed alarm on. Pt appropriate. Left chest tune insitu, drainage on dressing, no leaking noted. Chest tube to -20cm suction, per order, no leaking noted in chamber. Drainage in tubing is sero sang, this drainage has lightened, more serous like fluid since this AM bed side shift report. chest tube chamber secured to IV pole for securement and mobility. Chest tube cart placed outside pt's room, this has the hemostat clamps present in it. AE diminished to left lung field, no crepitus noted. Pt states his breaths are shallow. Encouraged left chest splinting with blanket when coughing or with movement. HR 52 bpm and regular upon auscultation, states his normal heart rate is 56 bpm, his adult life, his heart rate has been in the 50's. Pain to left side chest 3-4/10 aching, tender with movement, sharp with movement.
[2019-12-02] MEDS: polyethylene glycoL 3350 17 GM POWD.PACK PO (14:21)
[2019-12-02] MEDS: ACETAMINOPHEN 325 MG TABLET 650 MG PO ×2 (14:35→20:22)
[2019-12-02] MEDS: LIDOCAINE PATCH 1 EACH ADH..PATCH TOP (14:37)
--- NOTE | 2019-12-02 14:48 | PM.PN.1 ---
Subjective Subjective Date Patient Seen: 12/02/19 Time Patient Seen: 12:15 Interval history: No acute events overnight. Breathing comfortably on room air. Complains of some pain in the left chest. Exam Vital Signs (past 8 hours): - 12/02/19 09:00 12/02/19 13:00 12/02/19 14:17 Temperature 98.5 F 98 F Pulse Rate 52 L 59 L Respiratory Rate 16 16 Blood Pressure 141/78 H 135/74 Pulse Oximetry 98 97 97 Oxygen Delivery Method Room Air Oxygen Flow Rate 0 Narrative Exam Narrative: GENERAL: Well groomed and cooperative. Appears stated age. Answers questions promptly and appropriately. Vital signs noted. HENT: Normocephalic, atraumatic. Hearing intact. Oral mucosa is pink and moist. EYES: Conjunctiva pink, sclera white, no periorbital swelling. Chest: Left chest tube dressing is intact, with some serosanguineous drainage on the gauze, and about 50 cc of serosanguineous drainage in the tubing. Good tidal movement of the chest tube, without evidence of a leak, removed from suction during exam CARDIOVASCULAR: Regular rate. No pedal edema. RESPIRATORY: Non-tachypneic, breathing comfortably on room air. GASTROINTESTINAL: Abdomen soft and non-distended GENITALURINARY: No flank tenderness. MUSCULOSKELETAL: Equal tone and mass bilaterally. SKIN: Warm, dry, soft, appropriate color for ethnicity. No other lesions, rashes, or wounds. NEURO: Alert and Oriented X 3. No gross sensory deficits, or cognitive issues. PSYCH: Appropriate affect and mood. Objective Labs Result Diagrams: 12/01/19 17:25 12/02/19 05:05 Labs: Laboratory Results - last 24 hr 12/01/19 12/01/19 12/02/19 17:25 17:25 05:05 WBC 5.8 RBC 5.01 Hgb 15.7 Hct 46.6 MCV 92.9 MCH 31.3 MCHC 33.7 RDW 13.1 Plt Count 232 Neut % (Auto) 65.6 Lymph % (Auto) 20.2 L [place] % (Auto) 11.3 Eos % (Auto) 2.6 Baso % (Auto) 0.3 Neut # (Auto) 3800 Lymph # (Auto) 1200 [place] # (Auto) 700 Eos # (Auto) 200 Baso # (Auto) 0 Sodium 139 137 Potassium 4.5 4.2 Chloride 101 107 Carbon Dioxide 28 24 BUN 20 18 Creatinine 0.80 0.70 Estimated GFR > 60.0 > 60.0 BUN/Creatinine Ratio 25.0 H 25.7 H Glucose 109 113 H Calcium 9.6 8.3 L Total Bilirubin 0.7 AST 38 ALT 24 Alkaline Phosphatase 77 Total Protein 8.1 Albumin 4.5 Globulin 3.6 Albumin/Globulin Ratio 1.3 Lipase 55 Assessment & Plan Assessment and plan (1) Traumatic fracture of ribs of left side with pneumothorax: Current visit: Yes Status: Acute (2) Fall due to slipping on ice or snow: Qualifiers: Encounter type: initial encounter Qualified Code(s): W00.9XXA - Unspecified fall due to ice and snow, initial encounter Current visit: Yes Status: Acute (3) Pneumothorax, acute: Current visit: Yes Status: Acute (4) Chest tube in place: Current visit: Yes Status: Acute Assessment & Plan narrative: This is the very healthy 79-year-old man who has left chest tube for a pneumothorax from a fall that he had a couple of days ago. The pneumothorax is almost completely resolved on his chest x-ray this morning. We switched the chest tube to water seal during his exam this morning. We will have him use incentive spirometer, and we will repeat a chest x-ray tomorrow morning. Plan: Chest tube to water seal Stat chest x-ray if patient desats or becomes hypotensive, or otherwise develops concerning symptoms for a recurrent pneumothorax Page MD is stat x-ray is ordered Incidence parameter 10 times per hour Follow-up chest x-ray tomorrow morning Regular diet DVT prophylaxis Ambulate as tolerated Time Spent With Patient Time with patient: 25 - 35 minutes Quality VTE Deep Vein Thrombosis/Pulmonary Embolism Present on Admission: No
[2019-12-02 18:23] LABS: Alanine Aminotransferase 20 IU/L (<50); Albumin 3.5 g/dL (3.5-5.0); Albumin Globulin Ratio 1.2 (1.0-2.8); Alkaline Phosphatase 57 U/L (38-126); Aspartate Aminotransferase 29 IU/L (17-59); Bilirubin Total 0.3 mg/dL (0.2-1.3); Blood Urea Nitrogen 18 mg/dL (9-20); Calcium 8.7 mg/dL (8.4-10.2); Carbon Dioxide 24 mmol/L (22-32); Chloride 108 mmol/L (98-107); Estimated Glomerular Filt Rate > 60.0 mL/min (>60); Glucose 117 mg/dL (80-110); HEMOLYSIS 16 (0-50); Potassium 4.3 mmol/L (3.4-5.1); Sodium 137 mmol/L (137-145); Total Protein 6.5 g/dL (6.3-8.2)
[2019-12-02] MEDS: SODIUM CHLORIDE 0.9% FLUSH 10 ML IV (20:21)
[2019-12-03] VITALS: BP 128/73; PULSE 60; RESP 16; TEMP 36.4; O2SAT 95
--- NOTE | 2019-12-03 01:04 | PC.NURSE ---
Shift note: Received patient from evening shift. Pt is AxOx3, able to make needs known, uses call light appropriately. Patient complaining of increased pain with breathing and appears to be more restless tonight, voicing frustration with the pain and how it is limiting. Also c/o pain in area of left trapezius muscle and upon palpation has an area of tenderness with possible muscle knot. Per communication and provider's orders, placed order for stat chest x-ray and notified Dr Pal who is coroner/medical examiner. Dr Pal wants to be notified when X-ray is complete and available for viewing to place additional orders. At this time patient is on room air with a saturation of 95%, heart rate of 61, 103/62. At time of assessment, patient with diminished but clear lung sounds on left side, and clear lung sounds on right side. Offered patient additional pain medication in place of APAP, patient declined at this time as he prefers to not take opioids. During chest x-ray, patient became unresponsive with muscle spasm/tremors in right arm. Rapid response called @ 0125 by this RN. Rapid response paperwork completed during response. Dr Pal Paged and returned call at [phone], chest tube removed at 0223, bedside during procedure. Patient to be transferred to ICU for close monitoring, repeat chest x-ray to be completed in a few hours.
--- NOTE | 2019-12-03 01:09 | DI.RAD.S_ITS ---
PROCEDURE: XR CHEST 1V INDICATIONS: Patient complaining of increased chest pain with inspiration TECHNIQUE: One view of the chest was acquired. COMPARISON: [facility], CR, XR CHEST 1V, 12/02/2019, 9:12. FINDINGS: Surgical changes and devices: A left-sided chest tube is identified that has been withdrawn slightly in the interim. The proximal port is kinked and appears to be located outside the thoracic cavity. Lungs and pleura: There may be a small left-sided pleural effusion. No definite pneumothorax is identified. Interstitial prominence within the perihilar regions are similar to the prior study. Mediastinum: Mediastinal contours appear normal. Heart size is normal. There is aortic atherosclerosis. Bones and chest wall: No suspicious bony lesions. Overlying soft tissues appear unremarkable. IMPRESSION: 1. The left-sided chest tube has been withdrawn with the proximal port located outside the thoracic cavity. 2. No definite pneumothorax. 3. Small left-sided pleural effusion. Dictated by: Leonel Peters M.D. on 12/03/2019 at 6:54 Approved by: Leonel Peters M.D. on 12/03/2019 at 6:56
[2019-12-03 01:20] VITALS: BP 103/62; PULSE 56; O2SAT 94
[2019-12-03] MEDS: SODIUM CHLORIDE 0.9% 500 ML 1000 ML IV (01:30)
[2019-12-03 01:58] LABS: Hematocrit 41.5 % (41-53); Hemoglobin 14.1 g/dL (13.5-17.5)
[2019-12-03 02:01] LABS: Creatine Kinase 56 U/L (55-170)
[2019-12-03] MEDS: OXYCODONE IR 5 MG TABLET PO (02:09)
[2019-12-03 02:14] LABS: Troponin I < 0.012 ng/mL (0.01-0.034)
--- NOTE | 2019-12-03 02:30 | P.EN_ITS ---
Event Note Date Patient Seen: 12/03/19 Time Patient Seen: 01:25 Event Note: RAPID RESPONSE: Xavi Stacy is an 79-year-old male who was admitted with no significant medical history who had a fall sustaining left posterior rib fracture and developing a left-sided pneumothorax. A chest tube placed by the surgical team and has per report been on water seal throughout the day. Per the patient's nurse the patient was experiencing increasing restlessness chest tightness and complaining shoulder pain. Dr. Veloz was notified and chest x-ray ordered. While the film was being taken the patient became unresponsive. Frieda yancey was called downgraded to rapid response the patient regained consciousness. Patient had a period of unresponsiveness witnessed by the RN at bedside with a rhythmic motion of the right hand on the side of the bed. On initial assessment the patient is lethargic, will open eyes to verbal stimulus, oriented to person place and will follow commands heart rate is found to be 41, blood pressure 74 systolic. On evaluation of his chest tube, the drainage syst em is on water seal, drainage is serosanguineous, there is no tidaling in the tubing and no air leak with cough, week as it is. The patient states he had no change in vision or dizziness, he states he just passed out. When asked if he has experienced episodes of passing out previously he states 2 years ago he had a vasovagal episode. The patient has been refusing pain medication other acetaminophen. GENERAL APPEARANCE: Well-developed, lethargic, unwell appearing HEENT: Normocephalic, PERRLA, EOMs intact SKIN: Pale, cool and diaphoretic. HEART: Bradycardic rate with regular rhythm, S1-S2, no murmur, 2+ radial pulse LUNGS: clear to auscultation bilaterally, no coarseness crackles or wheezing, no cough present, poor cough effort CHEST: Left lateral chest tube, no apparent subcu emphysema, symmetrical movement, no accessory muscle use, shallow tidal volume ABDOMEN: Soft, no distention EXTREMITIES: moves all extremities, strength is 5/5 and symmetrical. NEUROLOGIC: AAO person place and improving, cranial nerves II-XII grossly intact PSYCH: Flat affect, cooperative, follows directions Vasovagal mediated syncopal episode. -Syncopal episode lasting perhaps 1 minutes possibly more, spontaneously regained consciousness, complains of tightness across his chest and posterior left shoulder. -Chest drainage system placed on suction at -20 with no change in drainage, tiling or air leak. -Normal saline bolus 500 cc initiated at 1000 cc/hour, followed by normal saline 100 cc/hour. -Twelve lead EKG obtained revealing sinus bradycardia without ectopy or block, no ischemia or infarct. -Obtain stat H&H, stat fingerstick blood sugar. -The patient has been receiving Tylenol for pain, ordered oxycodone 5 mg every 4 hours as needed for pain with teaching related to pain control for the patient. Review chest x-ray: Very slight pneumothorax apex, chest tube is malpositioned and kinked at the chest wall and facing downward towards the diaphragm. No mac dence of pneumonia or pulmonary edema. Spoke with Dr. Veloz, surgeon on-call and reviewed the above noted events, findings and assessment. Read the patient's progress with treatment with return of blood pressure to 95/50 and heart rate to 52. Dr. Veloz agrees that this is a vasovagal event secondary to pain and will be in to remove the chest tube. Patient will be transferred to the ICU for closer monitoring with repeat chest x-ray in the morning.
[2019-12-03] MEDS: SODIUM CHLORIDE 0.9% 1,000 ML 100 ML IV (02:33)
[2019-12-03 03:06] VITALS: BP 150/81; PULSE 59; RESP 12; TEMP 36.7; O2SAT 97
--- NOTE | 2019-12-03 03:14 | PM.PN.1 ---
Subjective Subjective Date Patient Seen: 12/03/19 Time Patient Seen: 02:15 Interval history: Pt was complaining of left shoulder pain. Rapid response called for hypotension and unresponsiveness. Stat CXR showed chest tube kinked, and likely irritating diaphragm causing phrenic nerve irritation. Mental status and vitals improved. Chest tube not functioning and was therefore removed by me at 2:15AM. Exam Vital Signs (past 8 hours): - 12/02/19 20:27 12/02/19 21:26 12/03/19 00:00 Temperature 98.5 F 97.5 F L Pulse Rate 60 60 Respiratory Rate 21 16 Blood Pressure 135/80 128/73 Pulse Oximetry 97 97 95 12/03/19 01:20 12/03/19 03:06 Temperature 98.0 F Pulse Rate 56 L 59 L Respiratory Rate 12 Blood Pressure 103/62 150/81 H Pulse Oximetry 94 97 Oxygen Delivery Method Room Air Oxygen Flow Rate 0 Narrative Exam Narrative: GENERAL: eyes closed, opens to voice, becomes alert, appropriate responses Chest: Left chest tube in place, kinked and not tidaling; removed during exam; vaseline gauze dressing placed. CARDIOVASCULAR: Regular rate. No pedal edema. RESPIRATORY: Non-tachypneic, breathing comfortably on room air. GASTROINTESTINAL: Abdomen soft and non-distended GENITALURINARY: No flank tenderness. MUSCULOSKELETAL: Equal tone and mass bilaterally. SKIN: Warm, dry, soft, appropriate color for ethnicity. No other lesions, rashes, or wounds. Objective Labs Result Diagrams: 12/03/19 01:30 12/02/19 17:55 Labs: Laboratory Results - last 24 hr 12/02/19 12/02/19 12/03/19 05:05 17:55 01:30 Hgb 14.1 Hct 41.5 Sodium 137 137 Potassium 4.2 4.3 Chloride 107 108 H Carbon Dioxide 24 24 BUN 18 18 Creatinine 0.70 0.90 Estimated GFR > 60.0 > 60.0 BUN/Creatinine Ratio 25.7 H 20.0 Glucose 113 H 117 H Calcium 8.3 L 8.7 Total Bilirubin 0.3 AST 29 ALT 20 Alkaline Phosphatase 57 Total Creatine Kinase CK-MB (CK-2) CK-MB (CK-2) Rel Index Troponin I Total Protein 6.5 Albumin 3.5 Globulin 3.0 Albumin/Globulin Ratio 1.2 12/03/19 01:30 Hgb Hct Sodium Potassium Chloride Carbon Dioxide BUN Creatinine Estimated GFR BUN/Creatinine Ratio Glucose Calcium Total Bilirubin AST ALT Alkaline Phosphatase Total Creatine Kinase 56 CK-MB (CK-2) TNP CK-MB (CK-2) Rel Index TNP Troponin I < 0.012 Total Protein Albumin Globulin Albumin/Globulin Ratio Assessment & Plan Assessment and plan (1) Traumatic fracture of ribs of left side with pneumothorax: Current visit: Yes Status: Acute (2) Fall due to slipping on ice or snow: Qualifiers: Encounter type: initial encounter Qualified Code(s): W00.9XXA - Unspecified fall due to ice and snow, initial encounter Current visit: Yes Status: Acute (3) Pneumothorax, acute: Current visit: Yes Status: Acute (4) Chest tube in place: Current visit: Yes Status: Acute Assessment & Plan narrative: This is the very healthy 79-year-old man who has left chest tube for a pneumothorax from a fall that he had several days ago. Pneumothorax was resolved on CXR today, and chest tube was removed because it is kinked, not tidaling, and likely caused vasovagal response to pain resulting in unresponsiveness and hypotension. Plan: repeat CXR this AM transfer to ICU for close monitoring incentive spirometer Q1hour page if desat, hypotension, or other concerning symptoms Regular diet DVT prophylaxis Ambulate as tolerated Time Spent With Patient Time with patient: 25 - 35 minutes Quality VTE Deep Vein Thrombosis/Pulmonary Embolism Present on Admission: No
[2019-12-03 04:18] VITALS: BP 150/81; PULSE 59; RESP 12; TEMP 36.7; O2SAT 97
--- NOTE | 2019-12-03 06:23 | PC.NURSE ---
Pt. so far not needing pain meds since his last dose of O'Brien at 0141 prior to transfer from Acute Care to ICU. HR remains lucie in the 50's, B/P stable, denies dizziness however pt. has not been OOB yet. RA sats in the high 90's, lungs CTA but diminished throughout L>R, denies shortness of breath or pain with breathing. NS infusing at 100ml/hr. Instructed pt. to never get OOB without assistance for safety jenna. after the syncopal episode, pt. agreed, call light within reach.
[2019-12-03 08:00] VITALS: BP 133/65; PULSE 54; RESP 18; TEMP 36.3; O2SAT 98
--- NOTE | 2019-12-03 08:59 | DI.RAD.S_ITS ---
PROCEDURE: XR CHEST 1V INDICATIONS: chest tube out TECHNIQUE: One view of the chest was acquired. COMPARISON: [facility], , XR CHEST 1V, 12/03/2019, 1:19. FINDINGS: Surgical changes and devices: Left-sided chest tube has been completely removed. Soft tissue air is seen overlying the lateral margin of the left chest. Lungs and pleura: Linear areas of increased attenuation are identified at the costophrenic angles bilaterally. There may be a small loculated pneumothorax at the left costophrenic angle. No large pneumothorax is identified. There is no large effusion. Mediastinum: Mediastinal contours appear normal. Heart size is normal. There is aortic atherosclerosis. Bones and chest wall: No suspicious bony lesions. Overlying soft tissues appear unremarkable. IMPRESSION: 1. Interval removal of the left-sided chest tube. 2. Possible small contained/loculated pneumothorax at the left costophrenic angle. Additional followup is recommended. 3. Bibasilar atelectasis. Dictated by: Leonel Peters M.D. on 12/03/2019 at 8:29 Approved by: Leonel Peters M.D. on 12/03/2019 at 8:30
--- NOTE | 2019-12-03 09:44 | P.DS_ITS ---
History of Present Illness History of Present Illness Date Patient Seen: 12/03/19 Time Patient Seen: 09:30 Chief complaint: rib pain s/p fall Narrative: This is an 79-year-old man who was admitted on December 01 for a left-sided pneumothorax which he likely sustained during a fall several days prior to admission. On his initial x-ray he had a moderate pneumothorax, and a chest tube was placed by Dr. Oquendo. The chest tube with kept on suction for 1 day, and then switched to water seal, as he had a very tiny trace pneumo after 1 day on suction. While he was on water seal he started having some pain in the left shoulder. A stat chest x-ray was ordered which showed no pneumothorax, but a kinked chest tube which appeared to be touching the diaphragm. This is likely the cause of his shoulder pain. While he was experiencing the shoulder pain, he had a vagal response, and loss consciousness. A rapid response was called, and he was revived to consciousness and placed on IV fluids due to some hypotension. This was in the middle the night on Thursday night. I came in and removed the chest tube as it was no longer working, and it was clearly causing him pain and distress. Chest x-ray at that time showed no pneumothorax. Repeat chest x-ray 5 hours later again showed no pneumothorax. The patient was comfortable and satting well on room air, and so the decision was made to work on dispo planning at that point. Discharge Providers Provider Date of admission: 12/01/19 22:37 Discharge Date: 12/03/19 Primary care physician: Mike Smith MD Consults: 12/01/19 22:42 Consult to Physician Routine Comment: Consulting Provider: Wraren Oquendo Reason for consultation: Chest tube Has provider been notified: Yes Discharge provider: Macy Pal MD Summary Hospital Course Discharge Diagnosis: Pneumothorax due to traumatic fall Hospital Course: Chest tube was placed in managed, patient had a vasovagal response to pain from the chest tube. It was removed at that point because the patient's pneumothorax had resolved. The pneumothorax did not reform on follow- up chest x-ray. The patient was discharged home in stable and improved condition. Status at Discharge Cognitive/behavioral status at discharge: oriented Functional status at discharge: independent ambulation Overall status at discharge: patient is progressing back to baseline Time Spent with Patient Time spent: Greater than 30 minutes Exam Vital Signs (past 8 hours): - 12/03/19 03:06 12/03/19 04:18 12/03/19 08:00 Temperature 98.0 F 98.0 F 97.3 F L Pulse Rate 59 L 59 L 54 L Respiratory Rate 12 12 18 Blood Pressure 150/81 H 150/81 H 133/65 Pulse Oximetry 97 97 98 Oxygen Delivery Method Room Air Oxygen Flow Rate 0 Narrative Exam Narrative: GENERAL: Alert, oriented, comfortable, appears much younger than stated age HENT: Normocephalic, atraumatic. Hearing intact. Oral mucosa is pink and moist. EYES: Conjunctiva pink, sclera white, no periorbital swelling. CARDIOVASCULAR: Regular rate. No pedal edema. RESPIRATORY: Non-tachypneic, breathing comfortably on room air. GASTROINTESTINAL: Abdomen soft and non-distended GENITALURINARY: No flank tenderness. MUSCULOSKELETAL: Equal tone and mass bilaterally. SKIN: Warm, dry, soft, appropriate color for ethnicity. No other lesions, rashes, or wounds. NEURO: Alert and Oriented X 3. No gross sensory deficits, or cognitive issues. PSYCH: Appropriate affect and mood. Objective Imaging Chest x-ray: My impression: Series of chest x-rays with resolving pneumothorax, last 2 chest x-ray's showed no pneumothorax Labs Result Diagrams: 12/03/19 01:30 12/02/19 17:55 Labs: Laboratory Results - last 24 hr 12/02/19 12/03/19 12/03/19 17:55 01:30 01:30 Hgb 14.1 Hct 41.5 Sodium 137 Potassium 4.3 Chloride 108 H Carbon Dioxide 24 BUN 18 Creatinine 0.90 Estimated GFR > 60.0 BUN/Creatinine Ratio 20.0 Glucose 117 H Calcium 8.7 Total Bilirubin 0.3 AST 29 ALT 20 Alkaline Phosphatase 57 Total Creatine Kinase 56 CK-MB (CK-2) TNP CK-MB (CK-2) Rel Index TNP Troponin I < 0.012 Total Protein 6.5 Albumin 3.5 Globulin 3.0 Albumin/Globulin Ratio 1.2 Nasal Screen MRSA (PCR) 12/03/19 03:05 Hgb Hct Sodium Potassium Chloride Carbon Dioxide BUN Creatinine Estimated GFR BUN/Creatinine Ratio Glucose Calcium Total Bilirubin AST ALT Alkaline Phosphatase Total Creatine Kinase CK-MB (CK-2) CK-MB (CK-2) Rel Index Troponin I Total Protein Albumin Globulin Albumin/Globulin Ratio Nasal Screen MRSA (PCR) Negative for mrsa Discharge Plan Discharge Plan Patient Disposition: Home Discharge comment: You had a pneumothorax which has now resolved, showing no signs of pneumothorax on two interval chest xrays. Your oxygen saturation, x- rays, and labs are reassuring that you are recovering well, and you are safe for discharge to home. At home you may remove your dressing tomorrow, and take a shower at that time. Gently rinse over the skin incision, and reapply a bandaid or gauze dressing until it is completely healed. It may drain some blood tinged fluid for a few days. If you have any recurrence of your chest pain, shortness of breath, or other concerning symptoms, please call [facility] right away or come to the ER. If symptoms are severe, or you pass out, 9-11 should be called. You may follow up with Dr. Oquendo or Dr. Pal in the next 1-2 weeks, or you may choose to just follow up with your primary doctor if you are doing fine and you have no concerns about the chest tube site or other questions for the surgeon. You may take over the counter pain medication, use over the counter Lidocaine patches over the ribs, and use an ice pack if needed for comfort and to reduce swelling and bruising. Protect the skin if an ice pack is used. Discharge orders & Medications Prescriptions: Continued aspirin [Adult Aspirin Regimen] 81 mg tablet,delayed release (DR/EC) 81 mg PO DAILY RF: 0 multivitamin Tablet 1 tab PO DAILY RF: 0 calcium polycarbophil [Fiber-Tabs] 625 mg Tablet 625 mg PO DAILY RF: 0 ibuprofen [Advil] 200 mg Tablet 200 mg PO Q4H PRN (Reason: pain) RF: 0 [facility] 750 mg-100 mg- 1.65 mg-108 mg Tablet 1 tab PO DAILY RF: 0 Follow up/Referrals: Mike Smith MD [Primary Care Provider] - Warren Oquendo MD [Physician] - Macy Pal MD [Physician] - Diet/Activity/Treatments Diet: Diet as Tolerated Activity: Avoid making important decisions, driving a car, operating heavy [employer] richie for 24 hours after sedation. Avoid activities that cause pain. Take deep breaths, cough, bring up any phlegm that develops, and make sure to frequently expand your lungs well. Skin/Wound/Dressing Care Report to your healthcare provider any signs of infection, such as:: chills, fever, night sweats, increased pain, unusual drainage and unusual redness Visit Report/Discharge Packet Instructions: Pneumothorax, DI for Pneumothorax, DI for Prescription Opioid Use Discharge Data Primary Care Provider: Mike Smith Discharges patient from system. Discharge Date/Time: 12/03/19 14:35 Quality VTE Deep Vein Thrombosis/Pulmonary Embolism Present on Admission: No
--- NOTE | 2019-12-03 10:47 | PC.NURSE ---
Addendum entered by Birdie Tracy R.N. 12/03/19 14:35: d/c teaching done, took to private vehicle home. Original Note: Am shift Pt is A/o x4, able to make needs known. Denies pain at present and SOB has resolved per Pt. No further vasovagal episodes. Pt is feeling ready for d/c home. CXR obtained and [facility] will D/c home. Pt to follow up this week and return to ER if SOB or symptoms persist.
[2019-12-03] MEDS: DOCUSATE 100 MG CAPSULE PO (11:25)
--- NOTE | 2019-12-03 13:58 | CM.DPC ---
Discharge Planning/Care Management CM Discharge Assessment Start: 12/03/19 13:56 Freq: Status: Active Protocol: Document 12/03/19 13:56 ITV (Rec: 12/03/19 13:58 ITV [id number]) Discharge Planning Assessment Advance Directives? No History Provided By Medical Record Prior Living Arrangements House Household Members spouse Review Status In Process
--- NOTE | 2019-12-03 13:58 | CM.DANOTE ---
Addendum entered by Beatrice Berry LPN 12/03/19 14:11: HERRERA Packer confirms that pt did d/c home just before lunchtime. Transported by private care driven by his . Addendum entered by Beatrice Berry LPN 12/03/19 14:06: Case again discussed with Team members noting that pt did transfer late yesterday to ICU setting after problems with the chest tube. PT noted they were not involved but perhaps when pt was medically stable this would be appropriate. A d/c order was noted late morning from Dr. Pal. Went to room to check in with pt. Room empty. HERRERA Packer confirms he did d/c to home setting and would followup with [facility] prn or with his PCP. No d/c concerns were noted by the care team members. Original Note: Discharge Planning/Care Management DCP: assessment: case received yesterday EMR reviewed and discussed in Team Rounds. Pt is an 79 year old male who admitted night of 12/01 to care of hospitalist team. PCP: Dr Smith: listed on face sheet Hospitalist Dr. Jarvis and nursing staffing coordinator agreed that they would see if this should be under A provider staff and clarify same for the team. Payer: Medicare and for Life Admission status: INPT: confirmed by [facility] RN team. Consulting: [facility]: Dr. Pal. Pt admitted with rib pain after a fall with placement of CT. As POC was newly in process caseload triage decision made to follow up with pt on 12/03. CM Discharge Assessment Start: 12/03/19 13:56 Freq: Status: Active Protocol: Document 12/03/19 13:56 ITV (Rec: 12/03/19 13:58 ITV [id number]) Discharge Planning Assessment Advance Directives? No History Provided By Medical Record Prior Living Arrangements House Household Members spouse Review Status In Process
== END 2019-12-03 14:35 | disposition home or self-care (01) | DRG 200 ==
LOC: ED 22:30 → AC 22:38 → ICU 12-03 02:56
PROVIDERS: Nurse Practitioner Adult Health; Admitting Provider Nurse Practitioner Family; Emergency Provider Nurse Practitioner Family; Family Provider Family Medicine; PCP Family Medicine; Referring Provider Emergency Medicine; Visit Provider Nurse Practitioner Family
DX: S27.0XXA Traumatic pneumothorax, initial encounter (principal); S22.32XA Fracture of one rib, left side, initial encounter for closed fracture; R55 Syncope and collapse; R03.0 Elevated blood-pressure reading, without diagnosis of hypertension; W00.0XXA Fall on same level due to ice and snow, initial encounter
CPT/HCPCS: 36415; 71045; 71111; 80048; 80053; 82550; 83690; 84484; 85014; 85018; 85025; 87797; 93005; 94762; 96361; 96374; 99222; 99232; 99238; 99285; 99291; J1650; J2270; J3010

== ENCOUNTER 2019-12-05 10:34 | Emergency (ER) | payer MEDICARE, OTHER, SELFPAY ==
[2019-12-01 22:41] VITALS: BMI 22.4
[2019-12-05 10:39] VITALS: BP 175/81; PULSE 55; RESP 16; TEMP 37; O2SAT 98
--- NOTE | 2019-12-05 11:23 | DI.RAD.S_ITS ---
PROCEDURE: XR CHEST 2V INDICATIONS: s/p chest tube removal for pneumo and rib fx-increasing pain TECHNIQUE: 2 views of the chest were acquired. COMPARISON: [facility], CR, XR RIBS BI MIN 4V W [id number], 12/01/2019, 16:51. [facility], CR, XR CHEST 1V, 12/01/2019, 21:36. [facility], CR, XR CHEST 1V, 12/03/2019, 9:03. FINDINGS: Surgical changes and devices: None. 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 Trace blunting of the costophrenic angles is noted, unchanged. Mediastinum: Mediastinal contours are normal. Heart size is normal. Bones and chest wall: No suspicious bony abnormalities. Soft tissues appear unremarkable. Old posterior left rib fractures are noted. Previously questioned acute/subacute 12th rib fracture on the left is not well-visualized on current exam. IMPRESSION: 1. Suspected bibasilar atelectasis and trace effusions. No visualized recurrent pneumothorax. 2. Previously questioned acute/subacute left 12th rib fracture is not well characterized on current exam. If this remains of concern, rib series is recommended. Dictated by: Sophia Liu M.D. on 12/05/2019 at 11:57 Approved by: Sophia Liu M.D. on 12/05/2019 at 12:00
--- NOTE | 2019-12-05 11:46 | ED_ITS ---
HPI - Back Pain/Injury <EUGENE Azevedo - Last Filed: 12/05/19 13:33> General Chief Complaint: Back Pain/Injury Stated Complaint: Pain Time Seen by Provider: 12/05/19 11:06 Source: patient and EMS Mode of arrival: EMS Limitations: no limitations History of Present Illness HPI Narrative: This is a 79-year-old gentleman, nonsmoker, who presents to ED with EMS with significant other with increasing pain on his left side posterior chest with spasms without difficulty breathing. Patient was seen last week on , 4 days ago, in the ED dark here with a pneumothorax and fractured 12th posterior ribs after he fell 2 days prior to this. Patient was discharged to home on Thursday, 2 days ago, to home after the chest tube was removed and his lung as reinflated. Patient states he was doing well up until yesterday 5:00 p.m. when he has recurring chest pain after laughing. Significant other states she heard unusual noise at the same time and is concerned. The patient denies fever, chills, nausea or vomiting. Patient has been managing his discomfort with Tylenol and Advil at home which she has been increasing dose as 2 tabs every 4 hours. Related Data Home Medications Medication Instructions Recorded Confirmed aspirin 81 mg tablet,delayed 81 mg PO DAILY 05/26/19 12/05/19 release calcium polycarbophil [Fiber-Tabs] 625 mg PO DAILY 12/01/19 12/05/19 ibuprofen [Advil] 400 mg PO Q4H PRN 12/01/19 12/05/19 acetaminophen 650 mg PO Q4H PRN 12/05/19 12/05/19 Previous Rx's Medication Instructions Recorded hydrocodone-acetaminophen [Gansevoort] 0.5 - 1 tab PO Q8H PRN #10 tab 12/05/19 lidocaine 1 patch TOP DAILY #30 each 12/05/19 Allergies Allergy/AdvReac Type Severity Reaction Status Date / Time No Known Drug Allergies Allergy Verified 12/05/19 10:39 Review of Systems <EUGENE Azevedo - Last Filed: 12/05/19 13:33> Review of Systems Narrative: General: Denies fever, chills, fatigue, malaise, sweats. HEENT: Denies sinus pain, ear pain, sore throat, difficulty swallowing, dizziness. Respiratory: Denies dyspnea, cough, wheezing, hemoptysis, sputum. Cardiovascular: Denies chest pain, palpitations, orthopnea, edema. Gastrointestinal: Denies nausea, vomiting, abdominal pain, diarrhea, constipation, melena. : Denies dysuria, frequency, incontinence, hematuria, urinary retention. Musculoskeletal: See HPI Skin: Denies rash, skin lesions, or other. Neurologic: Denies weakness, headache, numbness, change in speech, confusion, seizures, incoordination. Psychiatric: No concerning psychosocial issues. 12-point review of systems is negative except for those stated above. Patient History <EUGENE Azevedo - Last Filed: 12/05/19 13:33> Surgical History (Updated 12/02/19 @ 01:57 by EUGENE Campuzano) History of Mohs surgery for squamous cell carcinoma in situ of skin (Acute) History of tonsillectomy Social History household members: spouse Smoking Status: Never smoker alcohol intake: current Smoking Status: Never smoker alcohol intake frequency: 0-2 drinks per day Substance Use Type: does not use Exam <EUGENE Azevedo - Last Filed: 12/05/19 13:33> Narrative Exam Narrative: GEN: Alert, oriented x 3, well appearing and nourished, and in no acute distress. Head: Normal cephalic, atraumatic. No scalp or temporal tenderness, palpable mass or rash. EYES: Pupils are equal, round, and reactive to light and accommodation. Extraocular muscles are intact bilaterally. There is no subconjunctival hemorrhage, exudate and sclera non-icteric. ENT: Bilateral auditory canals and tympanic membranes clear. Hearing grossly intact. Nose without bleeding, purulent discharge or deviation. Facial sinuses nontender to palpate. Mucous membrane moist, no mucosal lesion. Throat without erythema, tonsillar hypertrophy or exudate. Uvula in midline, airway patent. Neck: Trachea in midline. No JVD, non-tender without lymphadenopathy. No masses or thyroid megaly. Supple, non-tender and no meningeal signs. CARDIAC: Normal regular rate and rhythm without murmurs, gallops, or rubs. Lower posterior chest wall tenderness to palpate . No peripheral edema, cyanosis or pallor. Capillary refill is less than 2 seconds. RESPIRATORY: Lungs are clear to auscultate bilaterally. No cough, wheezes, rales, or rhonchi. No stridor, respiratory distress, increase work of breathing, or accessary muscle used. ABD: Abdomen soft, nontender and non-distended. No guarding or rebound tenderness to palpate. Bowel sounds are normal in all 4 quadrants. There is no palpable masses or organomegaly. EXT: Full painless ROM of all extremities with no loss of sensation, strength, effusion or edema. SKIN: Warm, dry, normal color for patient. No erythema, lesions or rash over visible areas. BACK: Nontender without deformity or crepitance. No flank tenderness. NEUROLOGICAL: Alert and oriented to place, time and person. Sensation and motor function intact bilaterally. No facial droops, dysphasia. PSYCHIATRIC: Good judgement and reason, without hallucinations, abnormal affect or abnormal behaviors during the examination. Initial Vital Signs Initial Vital Signs: Vital Signs Temperature 98.6 F 12/05/19 10:39 Pulse Rate 55 L 12/05/19 10:39 Respiratory Rate 16 12/05/19 10:39 Blood Pressure 175/81 H 12/05/19 10:39 Pulse Oximetry 98 12/05/19 10:39 <Kahlil Raya DO - Last Filed: 12/05/19 14:17> Initial Vital Signs Initial Vital Signs: Vital Signs Temperature 98.6 F 12/05/19 10:39 Pulse Rate 55 L 12/05/19 10:39 Respiratory Rate 16 12/05/19 10:39 Blood Pressure 175/81 H 12/05/19 10:39 Pulse Oximetry 98 12/05/19 10:39 Scores <EUGENE Azevedo - Last Filed: 12/05/19 13:33> GCS Kelly coma scale eye opening: Spontaneous Kelly coma scale verbal response: Orientated Kelly coma scale motor response: Obey commands Kelly coma scale total score: 15 Course <EUGENE Azevedo - Last Filed: 12/05/19 13:33> Orders Ordered: ED Orders 12/05/19 11:23 XR chest 2V Stat Discontinued Medications Hydrocodone Bitart/Acetaminophen (Gansevoort 5/325) 1 tab PO NOW ONE Stop: 12/05/19 12:16 Last Admin: 12/05/19 12:22 Dose: 1 tab Documented by: BTONER Lidocaine (Lidoderm) 1 each TOP NOW ONE Stop: 12/05/19 12:11 Last Admin: 12/05/19 12:23 Dose: 1 each Documented by: BTONER Vital Signs Vital signs: Vital Signs - 8 hr 12/05/19 10:39 12/05/19 12:00 Temperature 98.6 F Pulse Rate 55 L 71 Respiratory Rate 16 19 Blood Pressure 175/81 H Blood Pressure [Left Arm] 120/56 L Pulse Oximetry 98 97 <Kahlil Raya DO - Last Filed: 12/05/19 14:17> Orders Ordered: ED Orders 12/05/19 11:23 XR chest 2V Stat Discontinued Medications Hydrocodone Bitart/Acetaminophen (Gansevoort 5/325) 1 tab PO NOW ONE Stop: 12/05/19 12:16 Last Admin: 12/05/19 12:22 Dose: 1 tab Documented by: BTONER Lidocaine (Lidoderm) 1 each TOP NOW ONE Stop: 12/05/19 12:11 Last Admin: 12/05/19 12:23 Dose: 1 each Documented by: BTONER Vital Signs Vital signs: Vital Signs - 8 hr 12/05/19 10:39 12/05/19 12:00 Temperature 98.6 F Pulse Rate 55 L 71 Respiratory Rate 16 19 Blood Pressure 175/81 H Blood Pressure [Left Arm] 120/56 L Pulse Oximetry 98 97 MDM - Back Pain/Injury <EUGENE Azevedo - Last Filed: 12/05/19 13:33> Differential Diagnosis Differential diagnosis: Likely other (Pneumothorax, displaced rib fracture, pain syndrome) Medical Records Attestation: I reviewed the patient's medical records. Imaging Data Chest x-ray: Radiologist's Impression: [address] [address] XRay Report Signed Patient: Xavi Stacy [facility]#: [id number] : 9Acct:[id number] Age/Sex: 79 / MDate of Service: 12/05/19 Loc: ED Accession Number: [id number] Procedure: XR chest 2V Ordering Provider: Sebastian Carson PROCEDURE: XR CHEST 2V INDICATIONS: s/p chest tube removal for pneumo and rib fx-increasing pain TECHNIQUE: 2 views of the chest were acquired. COMPARISON: [facility], CR, XR RIBS BI MIN 4V W CXR1V, 12/01/2019, 16:51. [facility], CR, XR CHEST 1V, 12/01/2019, 21:36. [facility], CR, XR CHEST 1V, 12/03/2019, 9:03. FINDINGS: Surgical changes and devices: None. Lungs and pleura: There is a coarsened appearance within the bases bilaterally as well as linear opacities suspected to be field marketing representative of atelectasis. Trace blunting of the costophrenic angles is noted, unchanged. Mediastinum: Mediastinal contours are normal. Heart size is normal. Bones and chest wall: No suspicious bony abnormalities. Soft tissues appear unremarkable. Old posterior left rib fractures are noted. Previously questioned acute/subacute 12th rib fracture on the left is not well-visualized on current exam. IMPRESSION: 1. Suspected bibasilar atelectasis and trace effusions. No visualized recurrent pneumothorax. 2. Previously questioned acute/subacute left 12th rib fracture is not well characterized on current exam. If this remains of concern, rib series is recommended. Dictated by: Sophia Liu M.D. on 12/05/2019 at 11:57 Approved by: Sophia Liu M.D. on 12/05/2019 at 12:00 MDM Narrative Medical decision making narrative: Patient was evaluated initially on here in ED with pneumothorax from minimally displaced 12th posterior rib fracture after he sustained a fall on a icy ground. Patient discharged to home on Thursday and return to ED with worsening discomfort since yesterday evening after he laughed. Lung sounds are clear to auscultate in all lobes without dyspnea. O2 sat in 98% in room air. No respiratory distress, tachypnea, increased work of breathing noted.Chest x-ray does not appreciate new pneumothorax and showed not well visualized 12th rib fracture today. Patient has not been using inspirometry for deep breathing exercises due to discomfort. Patient's pain has been managed with 1 tab of Vicodin and lidocaine patch which patient found very helpful with pain management. We discussed the importance of using inspirometry to prevent atelectasis and pneumonia and verbalized understanding. Return precautions were discussed with patient and significant other and patient discharged to home with same medication. Patient and spouse verbalized understanding and agrees with the treatment plan. Discharge Plan Departure Patient Disposition: Home Clinical Impression: Fracture of rib of left side Qualifiers: Encounter type: subsequent encounter Rib fracture type: single rib Fracture type: closed Fracture healing: with routine healing Qualified Code(s): S22.32XD - Fracture of one rib, left side, subsequent encounter for fracture with routine healing Thoracic back pain Qualifiers: Chronicity: acute Back pain laterality: left Qualified Code(s): M54.6 - Pain in thoracic spine Discharge Date/Time: 12/05/19 13:09 Instructions: DI for Rib Fracture Activity Restrictions/Additional Instructions: You have been diagnosed with [left 12th posterior rib fracture and s/p pneumothorax with chest tube. Today's chest x-ray test does not show new pneumothorax or worsening rib fracture. However, it showed atelectasis. Please manage her pain and start doing deep breathing exercises using I/S 10 times every hour while awake to prevent pneumonia while splinting your ribs.]. What to do: *Take your medications as directed. You can continue to take Tylenol up to 4000 mg in 24 hour period. Advil 400 mg 3 to 4 times a day as needed for discomfort with food. Gansevoort half tab to 1 tab as needed up to 3 times for severe pain. It is can cause drowsiness so please do not drink alcohol, drive, operate heavy equipments. This can cause constipation so please increase fluid intake, high- fiber diets. Lidocaine patch stays on for 12 and off for 12 hours. These medication have transmitted to [facility]. *Follow up with your primary care provider in 2-3 days, call for an appointment. Let them know you were seen in the ED and that we asked you to be seen in follow up. *Return to ED if you have any new, worsening, or concerning symptoms, such as [chest pain, breathing difficulty, unable to tolerate fluids, fever, severe pain or any acute concerns]. Prescriptions: New lidocaine 5 % adhesive patch,medicated 1 patch TOP DAILY Qty: 30 RF: 0 hydrocodone-acetaminophen [Gansevoort] 5-325 mg tablet 0.5 - 1 tab PO Q8H PRN (Reason: pain) Qty: 10 RF: 0 No Action aspirin [Adult Aspirin Regimen] 81 mg tablet,delayed release (DR/EC) 81 mg PO DAILY RF: 0 acetaminophen 325 mg Tablet 650 mg PO Q4H PRN (Reason: pain) RF: 0 calcium polycarbophil [Fiber-Tabs] 625 mg Tablet 625 mg PO DAILY RF: 0 ibuprofen [Advil] 200 mg Tablet 400 mg PO Q4H PRN (Reason: pain) RF: 0 Referrals: Mike Smith MD [Primary Care Provider] - <Kahlil Raya DO - Last Filed: 12/05/19 14:17> Sign Out Provider Sign Out Attestation: Dr Raya Co-Sign Statement: I was available for consultation during this patient's emergency department visit. This chart is signed by myself for administrative purposes only. I did not have direct contact with this patient during this visit. They were seen independently by the APC.
[2019-12-05 12:00] VITALS: BP 120/56; PULSE 71; RESP 19; O2SAT 97
--- NOTE | 2019-12-05 12:17 | PC.NURSE ---
patient states pain increased when he laughed yesterday. pt also said he isn't using his IS because it hurts. RESIDENTIAL BUILDER will prescribe medicine to help the pt be more comfortable so he'll do the IS exercises.
[2019-12-05] MEDS: HYDROCODONE/ACET 5/325 TABLET 1 TAB PO (12:22)
[2019-12-05] MEDS: LIDOCAINE PATCH 1 EACH ADH..PATCH TOP (12:23)
== END 2019-12-05 13:09 | disposition home or self-care (01) ==
PROVIDERS: Emergency Provider Nurse Practitioner Family; Family Provider Family Medicine; PCP Family Medicine
DX: S22.32XD Fracture of one rib, left side, subsequent encounter for fracture with routine healing (principal); M54.6 Pain in thoracic spine; R07.89 Other chest pain
CPT/HCPCS: 71046; 99283

== ENCOUNTER → 2020-06-02 10:15 | Outpatient (CLI) | payer MEDICARE, OTHER, SELFPAY ==
[2019-12-01 22:41] VITALS: BMI 22.4
--- NOTE | 2020-06-02 10:17 | DI.MRI.S_ITS ---
PROCEDURE: MR HEAD/BRAIN WO CON INDICATIONS: Memory impairment TECHNIQUE: Noncontrast axial T1 spin echo, axial T2 fast spin echo, sagittal and axial FLAIR, coronal T2 fast spin echo, axial gradient echo, axial diffusion and ADC through the brain. COMPARISON: None. FINDINGS: Image quality: Excellent. CSF Spaces: Basal cisterns are patent. No extra-axial fluid collections. Ventricles are normal in size and shape. Brain: No intracranial masses or hemorrhage. Suarez/white matter interface is normal. Brainstem appears normal. Diffusion-weighted images demonstrate no acute ischemic insult. No chronic ischemic insults. Normal intravascular flow voids are present. Skull and face: Calvarium has normal marrow signal. Orbits appear normal. Sinuses: Sinuses and mastoids are clear. IMPRESSION: Normal for age, minimal microvascular atherosclerotic change. No mass or evidence of prior ischemic injury. A source of memory impairment is not found. Dictated by: Jonathan Goetz M.D. on 06/04/2020 at 8:19 Approved by: Jonathan Goetz M.D. on 06/04/2020 at 8:20
== END ==
PROVIDERS: Family Provider Family Medicine; PCP Family Medicine; Referring Provider Family Medicine; Visit Provider Family Medicine
DX: R41.3 Other amnesia (principal)
CPT/HCPCS: 70551

== ENCOUNTER → 2020-06-30 11:52 | Outpatient (CLI) | payer MEDICARE, OTHER, SELFPAY ==
[2019-12-01 22:41] VITALS: BMI 22.4
[2020-07-02 13:45] LABS: COVID19 Sendout Not Detected (Not Detect)
== END ==
PROVIDERS: Family Provider Family Medicine; PCP Family Medicine; Visit Provider Physician Assistant
DX: Z11.59 Encounter for screening for other viral diseases (principal)
CPT/HCPCS: 87635

== ENCOUNTER → 2020-07-09 07:46 | Outpatient (CLI) | payer MEDICARE, OTHER, SELFPAY ==
[2019-12-01 22:41] VITALS: BMI 22.4
[2020-07-09 08:15] LABS: Add Manual Diff / Slide Review NO; Basophils Absolute Auto 0 /uL (0-100); Basophils Percent Auto 0.4 % (0-2); Eosinophils Absolute Auto 100 /uL (0-450); Eosinophils Percent Auto 3.1 % (2-4); Hematocrit 44.3 % (41-53); Hemoglobin 14.7 g/dL (13.5-17.5); Lymphocytes Absolute Auto 1000 /uL (1100-4500); Lymphocytes Percent Auto 25.5 % (25-40); Mean Corpuscular HGB Conc 33.2 % (30-36); Mean Corpuscular Volume 93.3 fL (80-100); Monocytes Absolute Auto 600 /uL (0-900); Monocytes Percent Auto 14.1 % (3-14); Neutrophils Absolute Auto 2300 /uL (1500-7000); Neutrophils Percent Auto 56.9 % (50-75); Platelet Count 219 X10^3/uL (150-400); Red Blood Cell Count 4.75 X10^6/uL (4.5-5.9); White Blood Cell Count 4.1 X10^3/uL (4.5-11.0)
[2020-07-09 08:19] LABS: HEMOLYSIS < 15 (0-50)
[2020-07-09 08:31] LABS: Alanine Aminotransferase 35 IU/L (<50); Albumin 3.9 g/dL (3.5-5.0); Albumin Globulin Ratio 1.4 (1.0-2.8); Alkaline Phosphatase 69 U/L (38-126); Aspartate Aminotransferase 43 IU/L (17-59); BUN Creatinine Ratio 20.5 (6-22); Bilirubin Total 0.5 mg/dL (0.2-1.3); Blood Urea Nitrogen 18 mg/dL (9-20); C-Reactive Protein Quant < 0.5 mg/dL (<1.0); Calcium 9.1 mg/dL (8.4-10.2); Carbon Dioxide 33 mmol/L (22-32); Chloride 105 mmol/L (98-107); Cholesterol 196 mg/dL (140-199); Estimated Glomerular Filt Rate > 60.0 mL/min (>60); Globulin 2.8 g/dL (1.7-4.1); Glucose 98 mg/dL (80-110); HDL Cholesterol 73 mg/dL (40-60); LDL Cholesterol Calculated 107 mg/dL (<100); Potassium 5.1 mmol/L (3.4-5.1); Sodium 139 mmol/L (137-145); Total Protein 6.7 g/dL (6.3-8.2); Triglycerides 81 mg/dL (35-150)
[2020-07-09 08:54] LABS: Thyroid Stimulating Hormone 3.05 uIU/mL (0.47-4.68)
[2020-07-09 09:46] LABS: Erythrocyte Sedimentation Rate 4 MM/HR (0-15)
== END ==
PROVIDERS: Family Provider Family Medicine; PCP Family Medicine; Referring Provider Family Medicine; Visit Provider Family Medicine
DX: R41.3 Other amnesia (principal); I10 Essential (primary) hypertension; E78.5 Hyperlipidemia, unspecified
CPT/HCPCS: 36415; 80053; 80061; 84153; 84443; 85025; 85651; 86140

== ENCOUNTER → 2020-10-04 15:09 | Outpatient (CLI) | payer MEDICARE, OTHER, SELFPAY ==
[2019-12-01 22:41] VITALS: BMI 22.4
--- NOTE | 2020-10-04 15:12 | DI.RAD.S_ITS ---
PROCEDURE: XR CHEST 2V INDICATIONS: F/U TECHNIQUE: 2 views of the chest were acquired. COMPARISON: [facility], CR, XR CHEST 2V, 12/05/2019, 11:19. FINDINGS: Surgical changes and devices: None. Lungs and pleura: Scattered subsegmental scarring and/or atelectasis. No acute consolidation. No pleural effusions or pneumothorax. Mediastinum: Mediastinal contours are normal. Heart size is normal. Bones and chest wall: Multiple chronic appearing left rib fractures. IMPRESSION: No acute disease. Dictated by: Stewart Celestin M.D. on 10/04/2020 at 16:33 Approved by: Stewart Celestin M.D. on 10/04/2020 at 16:43
== END ==
PROVIDERS: Family Provider Family Medicine; PCP Family Medicine; Referring Provider Family Medicine; Visit Provider Family Medicine
DX: Z09 Encounter for follow-up examination after completed treatment for conditions other than malignant neoplasm (principal); S22.42XA Multiple fractures of ribs, left side, initial encounter for closed fracture; Z87.09 Personal history of other diseases of the respiratory system
CPT/HCPCS: 71046

== ENCOUNTER → 2021-01-09 08:06 | Outpatient (CLI) | payer MEDICARE, OTHER, SELFPAY ==
[2019-12-01 22:41] VITALS: BMI 22.4
--- NOTE | 2021-01-09 08:08 | DI.ECHO.S_ITS ---
[place] [facility]---------+ [facility] +---------+ : : [address] : : : : [id number] : : : : Phone: [phone]+ Echocardiogram Report + + :Name: RUDDY ACOSTA Study Date: 01/09/2021 Height: 69 in : :[facility] ReadingLocation: Weight: 155 lb : : Gender: Male BSA: 1.9 m2 : :: 1940 Age: 80 yrs BP: 138/79 mmHg: :Reason For Study: PROGRESSIVE EXERTIONAL FATIGUE : :Ordering Physician: ARLIN, : :MIKE Performed By: Evelyn Lizarraga : :Referring: MIKE OLIVEROS : + + Interpretation Summary The left ventricle is normal in size. The ejection fraction is estimated to be 60-65%. Left ventricular global longitudinal strain average is -23.6%. There has been no significant change in LVEF since the previous exam. The right ventricle is normal in size and function. No significant valvular pathology seen. The IVC is of normal diameter and collapses greater than 50% with a sniff. This suggests a low right atrial pressure of 3 mm Hg. Procedure: A two-dimensional transthoracic echocardiogram with color flow and Doppler was performed. The study quality was technically adequate. Comparison is made with the echocardiogram of 12/24/2016. The patient was in sinus rhythm with heart rates between 51-60 bpm during the exam. Left Ventricle: The left ventricle is normal in size. Proximal septal thickening is noted. There is no echo evidence for significant left ventricular outflow tract obstruction. There is no thrombus. Left ventricular global longitudinal strain average is -23.6%. The ejection fraction is estimated to be 60-65%. There has been no significant change since the previous exam. There are no focal wall motion abnormalities. Diastolic parameters suggest a relaxation abnormality of the left ventricle, consistent with probable normal filling pressures. Right Ventricle: The right ventricle is normal in size and function. Atria: The left atrium is mildly dilated. The right atrium is normal in size. There is no Doppler evidence for an interatrial shunt. Mitral Valve: The mitral valve is normal in structure and function. There is trace mitral regurgitation. Aortic Valve: The aortic valve is trileaflet. The aortic valve opens well. There is no aortic valve stenosis. No aortic regurgitation is present. Tricuspid Valve: The tricuspid valve is normal in structure and function. There is trace tricuspid regurgitation. Pulmonary artery pressures cannot be estimated because of the lack of a measurable TR jet velocity but the IVC suggests a CVP of around 3 mmHg. Pulmonic Valve: The pulmonic valve leaflets are thin and pliable; valve motion is normal. There is no pulmonic valvular regurgitation. Great Vessels: The aortic root is normal size. The dimensions of the ascending aorta are normal. The IVC is of normal diameter and collapses greater than 50% with a sniff. This suggests a low right atrial pressure of 3 mm Hg. Pericardium/ Pleura There is no pericardial effusion. There is no pleural effusion. MMode/2D Measurements & Calculations LVIDd: 4.3 cm LVOT diam: 2.0 cm LVIDs: 2.7 cm Ao root diam: 3.3 cm FS: 37.7 % asc Aorta Diam: 3.3 cm EPSS: 0.83 cm Ao Arch Diam (Prox Trans): 2.6 cm IVSd: 1.1 cm LVPWd: 1.0 cm LV robins. diameter/BSA (cm/m^2): 2.3 LV sys. diameter/BSA (cm/m^2): 1.4 LA A2 area: 22.4 cm2 RA long axis: 4.8 cm LA A4 area: 16.1 cm2 RA area: 13.6 cm2 LA length (vol): 4.7 cm RA vol: 32.5 ml LA vol: 65.0 ml RA : 17.5 ml/m2 LA vol index: 35.1 ml/m2 IVC diam: 1.2 cm RVD1 (basal): 3.8 cm TAPSE: 2.2 cm Doppler Measurements & Calculations Ao V2 max: 123.0 cm/sec LVOT Max Vin: 107.8 cm/sec Ao V2 mean: 81.8 cm/sec LV V1 max P.6 mmHg Ao max P.0 mmHg LV V1 VTI: 24.3 cm Ao mean P.1 mmHg MURTAZA(I,D): 2.9 cm2 Ao V2 VTI: 26.5 cm MURTAZA(V,D): 2.8 cm2 sev ratio: 0.92 MURTAZA indexed to BSA (cm^2/m^2): 1.6 MV E max vin: 64.3 cm/sec PA V2 max: 58.9 cm/sec Med Peak E' Vin: 8.0 cm/sec PA V2 mean: 35.5 cm/sec E/E' med: 8.1 PA mean P.61 mmHg Lat Peak E' Vin: 10.6 cm/sec SYDNEY pr(Accel): 20.8 mmHg E/E' lat: 6.1 E/e' average: 7.1 MV dec time: 0.25 sec SV(LVOT): 78.0 ml Reading Physician:06:20 PM
== END ==
PROVIDERS: Family Provider Family Medicine; PCP Family Medicine; Referring Provider Family Medicine; Visit Provider Family Medicine
DX: R07.89 Other chest pain (principal); R53.83 Other fatigue; R00.2 Palpitations
CPT/HCPCS: 93306

== ENCOUNTER → 2021-04-03 14:14 | Outpatient (CLI) | payer MEDICARE, OTHER, SELFPAY ==
[2019-12-01 22:41] VITALS: BMI 22.4
[2021-04-03 15:02] LABS: Hemoglobin A1C% w Est Avg Glu 5.5 % (4.0-6.0)
[2021-04-03 15:08] LABS: Add Manual Diff / Slide Review NO; Basophils Absolute Auto 0 /uL (0-100); Basophils Percent Auto 0.3 % (0-2); Eosinophils Absolute Auto 100 /uL (0-450); Eosinophils Percent Auto 1.4 % (2-4); Hematocrit 42.4 % (41-53); Hemoglobin 14.3 g/dL (13.5-17.5); Lymphocytes Absolute Auto 1000 /uL (1100-4500); Lymphocytes Percent Auto 12.4 % (25-40); Mean Corpuscular HGB Conc 33.8 % (30-36); Mean Corpuscular Hemoglobin 31.2 PG (26-34); Mean Corpuscular Volume 92.3 fL (80-100); Monocytes Absolute Auto 700 /uL (0-900); Monocytes Percent Auto 8.1 % (3-14); Neutrophils Absolute Auto 6300 /uL (1500-7000); Neutrophils Percent Auto 77.8 % (50-75); Platelet Count 242 X10^3/uL (150-400); Red Blood Cell Count 4.59 X10^6/uL (4.5-5.9); Red Cell Distribution Width 13.3 % (11.6-14.8); White Blood Cell Count 8.1 X10^3/uL (4.5-11.0)
[2021-04-03 15:12] LABS: Alanine Aminotransferase 24 IU/L (<50); Albumin 4.1 g/dL (3.5-5.0); Albumin Globulin Ratio 1.4 (1.0-2.8); Alkaline Phosphatase 68 U/L (38-126); Aspartate Aminotransferase 36 IU/L (17-59); BUN Creatinine Ratio 28.2 (6-22); Bilirubin Total 0.2 mg/dL (0.2-1.3); Blood Urea Nitrogen 24 mg/dL (9-20); Calcium 9.7 mg/dL (8.4-10.2); Carbon Dioxide 27 mmol/L (22-32); Chloride 102 mmol/L (98-107); Estimated Glomerular Filt Rate > 60.0 mL/min (>60); Globulin 2.9 g/dL (1.7-4.1); Glucose 96 mg/dL (80-110); HEMOLYSIS < 15 (0-50); Potassium 5.2 mmol/L (3.4-5.1); Sodium 136 mmol/L (137-145)
[2021-04-03 15:44] LABS: TSH w/ Reflex to FT4 2.68 uIU/mL (0.47-4.68)
== END ==
PROVIDERS: Family Provider Family Medicine; PCP Family Medicine; Referring Provider Family Medicine; Visit Provider Family Medicine
DX: R53.83 Other fatigue (principal); R73.9 Hyperglycemia, unspecified
CPT/HCPCS: 36415; 80053; 83036; 84443; 85025

== ENCOUNTER → 2021-04-10 11:06 | Outpatient (CLI) | payer MEDICARE, OTHER, SELFPAY ==
[2019-12-01 22:41] VITALS: BMI 22.4
--- NOTE | 2021-04-10 11:08 | DI.RAD.S_ITS ---
PROCEDURE: XR FOOT RT MIN 3V INDICATIONS: lateral right foot pain, hx of old injury, overuse TECHNIQUE: 3 views of the foot were acquired. COMPARISON: None. FINDINGS: Bones: No fractures or dislocations. No suspicious bony lesions. Soft tissues: No tibiotalar joint effusion. Achilles tendon appears normal. IMPRESSION: No visualized acute fracture or dislocation. However, if clinical concern and/or pain persist, short interval imaging followup in 7-10 days is recommended, as occult injury cannot be definitively excluded. Dictated by: Sophia Liu M.D. on 04/10/2021 at 11:30 Approved by: Sophia Liu M.D. on 04/10/2021 at 11:32
== END ==
PROVIDERS: Family Provider Family Medicine; PCP Family Medicine; Referring Provider Nurse Practitioner Family; Visit Provider Nurse Practitioner Family
DX: M79.671 Pain in right foot (principal)
CPT/HCPCS: 73630

== ENCOUNTER 2021-05-31 06:54 | Emergency (ER) | payer MEDICARE, OTHER, SELFPAY ==
[2019-12-01 22:41] VITALS: BMI 22.4
[2021-05-31] VITALS (12 sets, daily range): BP systolic 139–181; BP diastolic 67–79; PULSE 42–62; RESP 8–23; TEMP 36.6; O2SAT 96–100; BMI 28.0
--- NOTE | 2021-05-31 07:08 | DI.RAD.S_ITS ---
PROCEDURE: XR CHEST 1V INDICATIONS: chest pain TECHNIQUE: One view of the chest was acquired. COMPARISON: [facility], CR, XR CHEST 2V, 10/04/2020, 15:14. [facility], CR, XR CHEST 2V, 12/05/2019, 11:19. FINDINGS: Surgical changes and devices: None. Lungs and pleura: Lungs are clear. No pleural effusions or pneumothorax. Mediastinum: Mediastinal contours appear unchanged. Heart size is normal. Bones and chest wall: No suspicious bony lesions. Overlying soft tissues appear unremarkable. IMPRESSION: No acute cardiopulmonary abnormality. Dictated by: Gennaro Mccabe M.D. on 05/31/2021 at 8:00 Approved by: Gennaro Mccabe M.D. on 05/31/2021 at 8:01
--- NOTE | 2021-05-31 07:10 | ED.CHESTPAIN ---
HPI - Chest Pain General Chief Complaint: Chest Pain Stated Complaint: states chest pain Time Seen by Provider: 05/31/21 07:07 History of Present Illness HPI narrative: 81-year-old male nonsmoker without chronic medical history presents with his in the chief complaint of retrosternal chest pain that was present upon waking at about 5:00 a.m. this morning. He states that is made worse by deep breath and seems to improve when not breathing deeply. He denies any radiation of his discomfort. He states at its most intense it is about a 3/10. He took no medications at home and denies any history of the same. He denies recent history, trauma or travel. He denies any history of clot. States that it is sharp in nature. He denies associated symptoms such as dizziness, weakness or lightheadedness. He denies any shortness of breath, exertional symptoms, unexplained diaphoresis, nausea or vomiting. He states that he is an avid cyclist and denies any recent exercise intolerance or atypical symptoms while exerting himself. Related Data Home Medications Medication Instructions Recorded Confirmed aspirin 81 mg tablet,delayed 81 mg PO DAILY 05/26/19 04/10/21 release (Adult Aspirin Regimen) Allergies Allergy/AdvReac Type Severity Reaction Status Date / Time No Known Drug Allergies Allergy Verified 04/03/21 13:48 Review of Systems Review of Systems Narrative: GENERAL: Denies chills, fatigue, malaise, fever, sweats. HEENT: Denies sinus pain, ear pain, sore throat, difficulty swallowing, dizziness. RESPIRATORY: Denies dyspnea, cough, wheezing, hemoptysis, sputum. CARDIOVASCULAR: See HPI GASTROINTESTINAL: Denies nausea, vomiting, abdominal pain, diarrhea, constipation, melena. : Denies dysuria, frequency, incontinence, hematuria, urinary retention. MUSCULOSKELETAL: denies weakness, joint pain, or bony pain SKIN: Denies rash, skin lesions, or other NEUROLOGIC: Denies weakness, headache, numbness, change in speech, confusion, seizures, incoordination. PSYCHIATRIC: No concerning psychosocial issues. 12 point review of systems is negative except for those stated above Patient History Medical History Fatigue Surgical History History of Mohs surgery for squamous cell carcinoma in situ of skin History of tonsillectomy Family History Father Cancer Mother Cancer Grandfather Cancer Sister Age: 92 Dementia Social History household members: spouse Smoking Status: Never smoker alcohol intake: current Smoking Status: Never smoker alcohol intake frequency: 0-2 drinks per day Substance Use Type: does not use Exam Narrative Exam Narrative: GENERAL: [ 81] year old patient appears stated age. Well-developed patient, in mild distress. HEAD: Atraumatic. Normocephalic. EYES: Pupils equal round and reactive. Extraocular motions intact. No scleral icterus. No injection or drainage. ENT: Nose without bleeding, purulent drainage. Throat without erythema, tonsillar hypertrophy or exudate. Airway patent. NECK: Trachea midline. Non tender CARDIOVASCULAR: Regular rate and rhythm without murmurs, gallops, or rubs. RESPIRATORY: Clear to auscultation. Breath sounds equal bilaterally. No wheezes, rales, or rhonchi. GASTROINTESTINAL: Abdomen soft, non-tender, nondistended. EXTREMITIES: No edema or joint tenderness. BACK: Nontender without deformity or crepitance. No flank tenderness. NEURO: AOx3. SKIN: No rash or erythema of visible areas Initial Vital Signs Initial Vital Signs: Vital Signs Temperature 97.8 F 05/31/21 07:05 Pulse Rate 50 L 05/31/21 07:05 Respiratory Rate 15 05/31/21 07:05 Blood Pressure 172/79 H 05/31/21 07:05 Pulse Oximetry 99 05/31/21 07:05 Scores HEART Score Heart Score history: Slightly Suspicious Heart Score EKG: Normal Heart Score Age: > or = 65 years old Heart Score risk factors: No known risk factors Heart Score troponin: < or = to normal limit Heart Score Total: 2 Course Orders Ordered: ED Orders 05/31/21 07:08 XR chest 1V Stat 05/31/21 07:16 Complete Blood Count AUTO DIFF Stat Comprehensive Metabolic Panel Stat D Dimer Stat Lipase Stat Troponin & CK Cardiac Panel Stat 05/31/21 08:03 EKG-12 Lead Stat 05/31/21 10:01 Troponin I Stat Discontinued Medications Aspirin (Aspirin 81 Mg Chew Tab) 324 mg PO NOW ONE Stop: 05/31/21 07:08 Last Admin: 05/31/21 07:40 Dose: 324 mg Documented by: RADHA Al Hydrox/Mg Hydrox/Simethicone 20 ml/ Lidocaine HCl 15 ml 0 ml PO NOW ONE Stop: 05/31/21 08:11 Last Admin: 05/31/21 08:38 Dose: 20 ml Documented by: RADHA Sodium Chloride (Normal Saline 0.9%) 1,000 mls @ 150 mls/hr IV CONT ELIJAH Last Admin: 05/31/21 07:41 Dose: 150 mls/hr Documented by: RADHA Pantoprazole Sodium (Pantoprazole 40 Mg Vial) 20 mg IV NOW ONE Stop: 05/31/21 07:43 Last Admin: 05/31/21 08:02 Dose: 20 mg Documented by: RADHA Vital Signs Vital signs: Vital Signs - 8 hr 05/31/21 07:05 05/31/21 07:53 05/31/21 08:21 Temperature 97.8 F Pulse Rate 50 L 45 L 46 L Respiratory Rate 15 8 L 20 Blood Pressure 172/79 H 145/69 H Pulse Oximetry 99 99 100 05/31/21 08:30 05/31/21 09:00 05/31/21 09:30 Temperature Pulse Rate 42 L 44 L 62 Respiratory Rate 13 Blood Pressure 152/67 H 176/76 H Pulse Oximetry 100 99 96 05/31/21 09:31 05/31/21 10:00 05/31/21 10:01 Temperature Pulse Rate 55 L 50 L 49 L Respiratory Rate 17 20 20 Blood Pressure 181/78 H 139/72 Pulse Oximetry 100 100 99 05/31/21 10:07 05/31/21 10:30 05/31/21 10:33 Temperature Pulse Rate 47 L 44 L 45 L Respiratory Rate 23 17 17 Blood Pressure 139/72 147/69 H Pulse Oximetry 99 99 99 MDM - Chest Pain Lab Data Result diagrams: 05/31/21 07:16 05/31/21 07:16 Labs: Lab Results 05/31/21 05/31/21 05/31/21 Range/Units 07:16 07:16 07:16 WBC 5.3 (4.5-11.0) X10^3/uL RBC 4.61 (4.5-5.9) X10^6/uL Hgb 14.4 (13.5-17.5) g/dL Hct 42.6 (41-53) % MCV 92.5 (80-100) fL MCH 31.3 (26-34) PG MCHC 33.9 (30-36) % RDW 13.3 (11.6-14.8) % Plt Count 188 (150-400) X10^3/uL Neut % (Auto) 67.5 (50-75) % Lymph % (Auto) 19.7 L (25-40) % [place] % (Auto) 10.7 (3-14) % Eos % (Auto) 1.9 L (2-4) % Baso % (Auto) 0.2 (0-2) % Neut # (Auto) 3600 (8748-0476) /uL Lymph # (Auto) 1000 L (7904-1634) /uL [place] # (Auto) 600 (0-900) /uL Eos # (Auto) 100 (0-450) /uL Baso # (Auto) 0 (0-100) /uL D-Dimer < 200 (<230) ng/mL Sodium 137 (137-145) mmol/L Potassium 4.6 (3.4-5.1) mmol/L Chloride 106 (98-107) mmol/L Carbon Dioxide 26 (22-32) mmol/L BUN 22 H (9-20) mg/dL Creatinine 0.84 (0.66-1.25) mg/dL Estimated GFR > 60.0 (>60) mL/min BUN/Creatinine Ratio 26.2 H (6-22) Glucose 99 (80-110) mg/dL Calcium 8.9 (8.4-10.2) mg/dL Total Bilirubin 0.4 (0.2-1.3) mg/dL AST 39 (17-59) IU/L ALT 24 (<50) IU/L Alkaline Phosphatase 62 (38-126) U/L Total Creatine Kinase 69 (55-170) U/L CK-MB (CK-2) TNP CK-MB (CK-2) Rel Index TNP Troponin I < 0.012 (0.01-0.034) ng/mL Total Protein 6.8 (6.3-8.2) g/dL Albumin 3.8 (3.5-5.0) g/dL Globulin 3.0 (1.7-4.1) g/dL Albumin/Globulin Ratio 1.3 (1.0-2.8) Lipase 117 (23-300) U/L 05/31/21 Range/Units 10:01 WBC (4.5-11.0) X10^3/uL RBC (4.5-5.9) X10^6/uL Hgb (13.5-17.5) g/dL Hct (41-53) % MCV (80-100) fL MCH (26-34) PG MCHC (30-36) % RDW (11.6-14.8) % Plt Count (150-400) X10^3/uL Neut % (Auto) (50-75) % Lymph % (Auto) (25-40) % [place] % (Auto) (3-14) % Eos % (Auto) (2-4) % Baso % (Auto) (0-2) % Neut # (Auto) (3748-7996) /uL Lymph # (Auto) (2055-3036) /uL [place] # (Auto) (0-900) /uL Eos # (Auto) (0-450) /uL Baso # (Auto) (0-100) /uL D-Dimer (<230) ng/mL Sodium (137-145) mmol/L Potassium (3.4-5.1) mmol/L Chloride (98-107) mmol/L Carbon Dioxide (22-32) mmol/L BUN (9-20) mg/dL Creatinine (0.66-1.25) mg/dL Estimated GFR (>60) mL/min BUN/Creatinine Ratio (6-22) Glucose (80-110) mg/dL Calcium (8.4-10.2) mg/dL Total Bilirubin (0.2-1.3) mg/dL AST (17-59) IU/L ALT (<50) IU/L Alkaline Phosphatase (38-126) U/L Total Creatine Kinase (55-170) U/L CK-MB (CK-2) CK-MB (CK-2) Rel Index Troponin I < 0.012 (0.01-0.034) ng/mL Total Protein (6.3-8.2) g/dL Albumin (3.5-5.0) g/dL Globulin (1.7-4.1) g/dL Albumin/Globulin Ratio (1.0-2.8) Lipase (23-300) U/L ECG Data Interpretation: Sinus bradycardia without evidence of occlusive findings such as ST elevation, depression or T-wave abnormalities. Ventricular rate 46 (close to baseline per patient). No evidence of block. ND 200, QT 371 MDM Narrative Medical decision making narrative: Multiple causes of chest pain considered including ID, PE, pneumothorax, pneumonia, aortic dissection, and pleurisy. Patient reports no radiation, no diaphoresis, no provocation with exertion, and no vomiting. Patient has had multiple troponins which were undetectable. Multiple EKGs nonischemic. Heart score to. Patient pain-free a since GI medications. PE considered but thought unlikely given D-dimer. Extensive return precautions given and questions answered to patient's satisfaction Discharge Plan Departure Patient Disposition: Home Clinical Impression: Atypical chest pain Fall due to slipping on ice or snow Qualifiers: Encounter type: initial encounter Qualified Code(s): W00.9XXA - Unspecified fall due to ice and snow, initial encounter Instructions: DI for Atypical Chest Pain Activity Restrictions/Additional Instructions: *You have been diagnosed with [atypical chest pain, very reassuring physical exam, EKGs and lab work. No indication of heart attack, blood clot] *What to do: *Please continue to take your regular medications as directed. [ ] New medication prescriptions sent to your pharmacy: [ ] [ ] New medication written as a paper prescription [x ] No new medications given *Please follow up with your primary care provider in 2-3 days, call for an appointment. Let them know you were seen in the Emergency Department and that we ask that you be seen in follow up. We will electronically transmit a record of today's note if your PCP is in our system *If you do not have a primary care provider please contact the [facility] Resource line at [phone]. They will ask some questions about your medical history and help get you set up with a doctor in the community. *Return to Emergency Department if you should have any new, worsening or concerning symptoms, such as [fever greater than 101 F, shaking chills, worsening pain, persistent vomiting or other bothersome symptoms] Prescriptions: No Action aspirin [Adult Aspirin Regimen] 81 mg tablet,delayed release (DR/EC) 81 mg PO DAILY RF: 0 Referrals: Wilver Vazquez, [Primary Care Provider] -
[2021-05-31 07:35] LABS: Add Manual Diff / Slide Review NO; Basophils Absolute Auto 0 /uL (0-100); Basophils Percent Auto 0.2 % (0-2); Eosinophils Absolute Auto 100 /uL (0-450); Eosinophils Percent Auto 1.9 % (2-4); Hematocrit 42.6 % (41-53); Hemoglobin 14.4 g/dL (13.5-17.5); Lymphocytes Absolute Auto 1000 /uL (1100-4500); Lymphocytes Percent Auto 19.7 % (25-40); Mean Corpuscular HGB Conc 33.9 % (30-36); Mean Corpuscular Hemoglobin 31.3 PG (26-34); Mean Corpuscular Volume 92.5 fL (80-100); Monocytes Absolute Auto 600 /uL (0-900); Monocytes Percent Auto 10.7 % (3-14); Neutrophils Absolute Auto 3600 /uL (1500-7000); Neutrophils Percent Auto 67.5 % (50-75); Platelet Count 188 X10^3/uL (150-400); Red Blood Cell Count 4.61 X10^6/uL (4.5-5.9); Red Cell Distribution Width 13.3 % (11.6-14.8); White Blood Cell Count 5.3 X10^3/uL (4.5-11.0)
[2021-05-31] MEDS: ASPIRIN 81 MG CHEW TAB 324 MG PO (07:40)
[2021-05-31] MEDS: SODIUM CHLORIDE 0.9% 1,000 ML 150 ML IV (07:41)
[2021-05-31 07:46] LABS: Alanine Aminotransferase 24 IU/L (<50); Albumin 3.8 g/dL (3.5-5.0); Albumin Globulin Ratio 1.3 (1.0-2.8); Alkaline Phosphatase 62 U/L (38-126); Aspartate Aminotransferase 39 IU/L (17-59); BUN Creatinine Ratio 26.2 (6-22); Bilirubin Total 0.4 mg/dL (0.2-1.3); Blood Urea Nitrogen 22 mg/dL (9-20); Calcium 8.9 mg/dL (8.4-10.2); Carbon Dioxide 26 mmol/L (22-32); Chloride 106 mmol/L (98-107); Creatine Kinase 69 U/L (55-170); Estimated Glomerular Filt Rate > 60.0 mL/min (>60); Glucose 99 mg/dL (80-110); HEMOLYSIS < 15 (0-50); Lipase 117 U/L (23-300); Potassium 4.6 mmol/L (3.4-5.1); Sodium 137 mmol/L (137-145); Total Protein 6.8 g/dL (6.3-8.2)
[2021-05-31 07:58] LABS: Troponin I < 0.012 ng/mL (0.01-0.034)
[2021-05-31] MEDS: PANTOPRAZOLE 40 MG VIAL 20 MG IV (08:02)
[2021-05-31 08:34] LABS: D Dimer < 200 ng/mL (<230)
[2021-05-31] MEDS: MAG HYDROX/ALUMINUM/SIMETH SUS 20 ML, LIDOCAINE VISCOUS 2% 15 ML PO (08:38)
[2021-05-31 10:31] LABS: Troponin I < 0.012 ng/mL (0.01-0.034)
== END 2021-05-31 10:46 | disposition home or self-care (01) ==
PROVIDERS: Emergency Provider Emergency Medicine; Family Provider Family Medicine; PCP Family Medicine
DX: R07.89 Other chest pain (principal); W00.9XXA Unspecified fall due to ice and snow, initial encounter
CPT/HCPCS: 36415; 71045; 80053; 82550; 83690; 84484; 85025; 85379; 93005; 96361; 96374; 99284; C9113

== ENCOUNTER 2022-10-30 09:20 | Emergency (ER) | payer MEDICARE, OTHER, SELFPAY ==
[2019-12-01 22:41] VITALS: BMI 22.4
[2022-10-30] VITALS (17 sets, daily range): BP systolic 124–189; BP diastolic 63–88; PULSE 43–61; RESP 12–39; TEMP 36.6; O2SAT 97–100; BMI 22.8
--- NOTE | 2022-10-30 09:30 | DI.RAD.S_ITS ---
PROCEDURE: XR CHEST 2V INDICATIONS: SOB TECHNIQUE: 2 views of the chest were acquired. COMPARISON: [facility], CR, XR CHEST 1V, 05/31/2021, 7:31. FINDINGS: Surgical changes and devices: None. Lungs and pleura: Lungs are clear. No pleural effusions or pneumothorax. Mediastinum: Mediastinal contours are normal. Heart size is normal. Bones and chest wall: No suspicious bony abnormalities. Soft tissues appear unremarkable. IMPRESSION: Stable radiographic evaluation of the chest without acute cardiopulmonary abnormalities or focal airspace disease. Dictated by: Fabien Gonsales M.D. on 10/30/2022 at 10:15 Approved by: Fabien Gonsales M.D. on 10/30/2022 at 10:16
[2022-10-30 09:45] LABS: Add Manual Diff / Slide Review NO; Basophils Absolute Auto 0 /uL (0-100); Basophils Percent Auto 0.5 % (0-2); Eosinophils Absolute Auto 200 /uL (0-450); Eosinophils Percent Auto 4.1 % (2-4); Hematocrit 44.3 % (41-53); Hemoglobin 14.5 g/dL (13.5-17.5); Lymphocytes Absolute Auto 1100 /uL (1100-4500); Lymphocytes Percent Auto 22.3 % (25-40); Mean Corpuscular HGB Conc 32.7 % (30-36); Mean Corpuscular Hemoglobin 30.5 PG (26-34); Mean Corpuscular Volume 93.5 fL (80-100); Monocytes Absolute Auto 600 /uL (0-900); Monocytes Percent Auto 11.4 % (3-14); Neutrophils Absolute Auto 3000 /uL (1500-7000); Neutrophils Percent Auto 61.7 % (50-75); Platelet Count 214 X10^3/uL (150-400); Red Blood Cell Count 4.74 X10^6/uL (4.5-5.9); Red Cell Distribution Width 13.7 % (11.6-14.8); White Blood Cell Count 4.9 X10^3/uL (4.5-11.0)
[2022-10-30 09:55] LABS: Prothrombin Time 11.9 SECONDS (10.1-12.7)
[2022-10-30 09:58] LABS: PTT Partial Thromboplastin Tim 28 SECONDS (26-36)
[2022-10-30 10:03] LABS: COVID19 -Nasal RAPID Negative (Negative)
[2022-10-30 10:04] LABS: D Dimer 555 ng/ml (<500)
[2022-10-30 10:08] LABS: Alanine Aminotransferase 28 IU/L (<50); Albumin Globulin Ratio 1.2 (1.0-2.8); Alkaline Phosphatase 61 U/L (38-126); Aspartate Aminotransferase 33 IU/L (17-59); BUN Creatinine Ratio 23.9 (6-22); Bilirubin Total 0.7 mg/dL (0.2-1.3); Blood Urea Nitrogen 21 mg/dL (9-20); Calcium 8.9 mg/dL (8.4-10.2); Carbon Dioxide 27 mmol/L (22-32); Chloride 106 mmol/L (98-107); Creatine Kinase 76 U/L (55-170); Estimated Glomerular Filt Rate > 60 mL/min (>60); Globulin 3.3 g/dL (1.7-4.1); Glucose 70 mg/dL (80-110); HEMOLYSIS < 15 (0-50); Lipase 52 U/L (23-300); Magnesium 2.1 mg/dL (1.6-2.3); Potassium 4.1 mmol/L (3.4-5.1); Sodium 139 mmol/L (137-145); Total Protein 7.3 g/dL (6.3-8.2)
[2022-10-30 10:12] LABS: C-Reactive Protein Quant < 0.5 mg/dL (<1.0)
[2022-10-30 10:20] LABS: NT-proBNP (BNP-Adult 18+) 76 pg/mL (<450); Troponin I < 0.012 ng/mL (0.01-0.034)
--- NOTE | 2022-10-30 10:27 | ED.CHESTPAIN ---
HPI - Chest Pain General Chief Complaint: Chest Pain Stated Complaint: chest pains and back pain x2 nights Time Seen by Provider: 10/30/22 09:22 Source: patient Mode of arrival: Ambulatory Limitations: no limitations History of Present Illness HPI narrative: 82-year-old male nonsmoker without any significant chronic medical history presents with his in the chief complaint of largely persistent chest pain with radiation to his back for least the past 2 nights. He denies any obvious provocation or palliation. He states he isn't sure exactly what he was doing when it started and it likely has slowly worsened. He states that he has been active like normal and denies any exertional symptoms or notable exercise and tolerates or exertional fatigue. He denies associated symptoms such as dizziness, weakness or lightheadedness. He states that he was seen by us a few years ago and had a fall with a rib fracture and a resultant pneumothorax in has had some level of discomfort and shortness of breath for the past 3 years but this is slightly worse. He denies recent trauma or fall. He denies recent travel, history of blood clot. Related Data Home Medications Medication Instructions Recorded Confirmed aspirin 81 mg tablet,delayed 81 mg PO DAILY 05/26/19 04/10/21 release (Adult Aspirin Regimen) Allergies Allergy/AdvReac Type Severity Reaction Status Date / Time No Known Drug Allergies Allergy Verified 10/30/22 09:28 Review of Systems Review of Systems Narrative: GENERAL: Denies chills, fatigue, malaise, fever, sweats. HEENT: Denies sinus pain, ear pain, sore throat, difficulty swallowing, dizziness. RESPIRATORY: Denies dyspnea, cough, wheezing, hemoptysis, sputum. CARDIOVASCULAR: See HPI GASTROINTESTINAL: Denies nausea, vomiting, abdominal pain, diarrhea, constipation, melena. : Denies dysuria, frequency, incontinence, hematuria, urinary retention. MUSCULOSKELETAL: denies weakness, joint pain, or bony pain SKIN: Denies rash, skin lesions, or other NEUROLOGIC: Denies weakness, headache, numbness, change in speech, confusion, seizures, incoordination. PSYCHIATRIC: No concerning psychosocial issues. 12 point review of systems is negative except for those stated above Patient History Medical History Fatigue Surgical History History of Mohs surgery for squamous cell carcinoma in situ of skin History of tonsillectomy Family History Father Cancer Mother Cancer Grandfather Cancer Sister Age: 93 Dementia Social History household members: spouse Smoking Status: Never smoker alcohol intake: current Smoking Status: Never smoker alcohol intake frequency: 0-2 drinks per day Substance Use Type: does not use Exam Narrative Exam Narrative: GENERAL: [82] year old patient appears stated age. Well-developed patient, in mild distress. HEAD: Atraumatic. Normocephalic. EYES: Pupils equal round and reactive. Extraocular motions intact. No scleral icterus. No injection or drainage. ENT: Nose without bleeding, purulent drainage. Throat without erythema, tonsillar hypertrophy or exudate. Airway patent. NECK: Trachea midline. Non tender CARDIOVASCULAR: Regular rate and rhythm without murmurs, gallops, or rubs. RESPIRATORY: Clear to auscultation. Breath sounds equal bilaterally. No wheezes, rales, or rhonchi. GASTROINTESTINAL: Abdomen soft, non-tender, nondistended. EXTREMITIES: No edema or joint tenderness. BACK: Nontender without deformity or crepitance. No flank tenderness. NEURO: AOx3. SKIN: No rash or erythema of visible areas Initial Vital Signs Initial Vital Signs: Vital Signs Pulse Rate 59 L 10/30/22 09:25 Respiratory Rate 27 H 10/30/22 09:25 Blood Pressure 189/88 H 10/30/22 09:25 Pulse Oximetry 99 10/30/22 09:25 Scores HEART Score Heart Score history: Slightly Suspicious Heart Score EKG: Non-Specific repolarization disturbance Heart Score Age: > or = 65 years old Heart Score risk factors: 1-2 risk factors Heart Score troponin: < or = to normal limit Heart Score Total: 4 Course Orders Ordered: Discontinued Medications Aspirin (Aspirin 81 Mg Chew Tab) 324 mg PO NOW ONE Stop: 10/30/22 09:23 Last Admin: 10/30/22 12:11 Dose: 324 mg Documented By: NATALIA Sodium Chloride (Normal Saline 0.9%) 500 mls @ 1,000 mls/hr IV BOLUS ONE Stop: 10/30/22 10:00 Last Infusion: 10/30/22 14:18 Dose: 0 mls/hr Documented By: Admin: 10/30/22 12:14 Dose: 1,000 mls/hr Documented By: NATALIA Vital Signs Vital signs: Vital Signs - 8 hr 10/30/22 09:29 10/30/22 09:25 10/30/22 09:25 Temperature 97.8 F Pulse Rate 61 59 L Respiratory Rate 18 27 H Blood Pressure 189/88 H 189/88 H Pulse Oximetry 100 99 Oxygen Delivery Method Room Air 10/30/22 09:30 10/30/22 09:30 10/30/22 10:30 Temperature Pulse Rate 58 L 47 L Respiratory Rate 39 H 15 Blood Pressure 164/86 H Pulse Oximetry 99 97 Oxygen Delivery Method 10/30/22 10:57 10/30/22 10:57 10/30/22 11:00 Temperature Pulse Rate 47 L Respiratory Rate 17 Blood Pressure 131/66 124/63 Pulse Oximetry 97 Oxygen Delivery Method Room Air 10/30/22 11:00 10/30/22 11:30 10/30/22 11:30 Temperature Pulse Rate 48 L 47 L Respiratory Rate 15 12 Blood Pressure 131/63 Pulse Oximetry 98 98 Oxygen Delivery Method 10/30/22 12:00 10/30/22 12:00 10/30/22 12:25 Temperature Pulse Rate 47 L 48 L Respiratory Rate 18 21 Blood Pressure 144/71 H Pulse Oximetry 97 100 Oxygen Delivery Method 10/30/22 12:25 Temperature Pulse Rate Respiratory Rate Blood Pressure 176/81 H Pulse Oximetry Oxygen Delivery Method MDM - Chest Pain Lab Data Result diagrams: 10/30/22 09:38 10/30/22 09:38 Labs: Lab Results 10/30/22 10/30/22 10/30/22 Range/Units 09:38 09:38 09:38 WBC 4.9 (4.5-11.0) X10^3/uL RBC 4.74 (4.5-5.9) X10^6/uL Hgb 14.5 (13.5-17.5) g/dL Hct 44.3 (41-53) % MCV 93.5 (80-100) fL MCH 30.5 (26-34) PG MCHC 32.7 (30-36) % RDW 13.7 (11.6-14.8) % Plt Count 214 (150-400) X10^3/uL Neut % (Auto) 61.7 (50-75) % Lymph % (Auto) 22.3 L (25-40) % [place] % (Auto) 11.4 (3-14) % Eos % (Auto) 4.1 H (2-4) % Baso % (Auto) 0.5 (0-2) % Neut # (Auto) 3000 (1648-5471) /uL Lymph # (Auto) 1100 (1544-4932) /uL [place] # (Auto) 600 (0-900) /uL Eos # (Auto) 200 (0-450) /uL Baso # (Auto) 0 (0-100) /uL PT (10.1-12.7) SECONDS INR (0.9-1.3) APTT (26-36) SECONDS D-Dimer 555 H (<500) ng/ml Sodium (137-145) mmol/L Potassium (3.4-5.1) mmol/L Chloride (98-107) mmol/L Carbon Dioxide (22-32) mmol/L BUN (9-20) mg/dL Creatinine (0.66-1.25) mg/dL Estimated GFR (>60) mL/min BUN/Creatinine Ratio (6-22) Glucose (80-110) mg/dL Calcium (8.4-10.2) mg/dL Magnesium (1.6-2.3) mg/dL Total Bilirubin (0.2-1.3) mg/dL AST (17-59) IU/L ALT (<50) IU/L Alkaline Phosphatase (38-126) U/L Total Creatine Kinase (55-170) U/L CK-MB (CK-2) CK-MB (CK-2) Rel Index Troponin I (0.01-0.034) ng/mL C-Reactive Protein < 0.5 (<1.0) mg/dL NT-Pro-B Natriuret Pep (<450) pg/mL Total Protein (6.3-8.2) g/dL Albumin (3.5-5.0) g/dL Globulin (1.7-4.1) g/dL Albumin/Globulin Ratio (1.0-2.8) Lipase (23-300) U/L SARS-CoV-2 (PCR) (Negative) 10/30/22 10/30/22 10/30/22 Range/Units 09:38 09:38 09:40 WBC (4.5-11.0) X10^3/uL RBC (4.5-5.9) X10^6/uL Hgb (13.5-17.5) g/dL Hct (41-53) % MCV (80-100) fL MCH (26-34) PG MCHC (30-36) % RDW (11.6-14.8) % Plt Count (150-400) X10^3/uL Neut % (Auto) (50-75) % Lymph % (Auto) (25-40) % [place] % (Auto) (3-14) % Eos % (Auto) (2-4) % Baso % (Auto) (0-2) % Neut # (Auto) (6868-1001) /uL Lymph # (Auto) (2426-4013) /uL [place] # (Auto) (0-900) /uL Eos # (Auto) (0-450) /uL Baso # (Auto) (0-100) /uL PT 11.9 (10.1-12.7) SECONDS INR 1.0 (0.9-1.3) APTT 28 (26-36) SECONDS D-Dimer (<500) ng/ml Sodium 139 (137-145) mmol/L Potassium 4.1 (3.4-5.1) mmol/L Chloride 106 (98-107) mmol/L Carbon Dioxide 27 (22-32) mmol/L BUN 21 H (9-20) mg/dL Creatinine 0.88 (0.66-1.25) mg/dL Estimated GFR > 60 (>60) mL/min BUN/Creatinine Ratio 23.9 H (6-22) Glucose 70 L (80-110) mg/dL Calcium 8.9 (8.4-10.2) mg/dL Magnesium 2.1 (1.6-2.3) mg/dL Total Bilirubin 0.7 (0.2-1.3) mg/dL AST 33 (17-59) IU/L ALT 28 (<50) IU/L Alkaline Phosphatase 61 (38-126) U/L Total Creatine Kinase 76 (55-170) U/L CK-MB (CK-2) TNP CK-MB (CK-2) Rel Index TNP Troponin I < 0.012 (0.01-0.034) ng/mL C-Reactive Protein (<1.0) mg/dL NT-Pro-B Natriuret Pep 76 (<450) pg/mL Total Protein 7.3 (6.3-8.2) g/dL Albumin 4.0 (3.5-5.0) g/dL Globulin 3.3 (1.7-4.1) g/dL Albumin/Globulin Ratio 1.2 (1.0-2.8) Lipase 52 (23-300) U/L SARS-CoV-2 (PCR) Negative (Negative) Urine Dip Bedside Urine Glucose Negative Bedside Urine Bilirubin - Negative Bedside Urine Ketone - Negative Urine Specific [place] 1.015 Bedside Urine Occult Blood - Negative Bedside Urine pH 6.0 Bedside Urine Protein - Negative Bedside Urine Urobilinogen - Negative Bedside Urine Nitrite - Negative Bedside Urine Leukocytes - Negative Esterase Imaging Data Chest/Abd/Pelvis CTA: Radiologist's Impression: Aorta demonstrates mild atherosclerotic change. No stenosis, occlusion or dissection noted ECG Data Interpretation: 0933] EKG is sinus [place], normal rhythm rate [ 48] and free of any signs of ischemia or ectopy. No ST segmental elevation or depression. No T wave inversions MDM Narrative Medical decision making narrative: [82-year-old male nonsmoker presents with his in the chief complaint of right-sided chest pain with radiation to his back for the past 2 days] Multiple etiologies for patient's symptoms considered including, but not limited to: [Cardiac ischemia, pulmonary embolism, dissection, pneumonia, pneumothorax, musculoskeletal, biliary disease, pancreatitis versus other] Prior Charts reviewed: Including prior emergency department visits from 2019 and 2020 Labs reviewed and interpreted by myself: CBC without signs of infection, anemia, thrombocytopenia or left shift. D-dimer 555, well below age corrected cutoff for pursuit of pulmonary embolism as diagnosis, CMP without significant abnormalities, troponin negative, bilirubin and LFTs negative. Imaging reviewed: Chest abdomen pelvis CT angiogram with dissection protocol ordered without evidence of any significant abnormality Cardiac ischemia considered but thought unlikely given no exertional symptoms, no exercise intolerance, no diaphoresis, no provocation with exertion, and no vomiting. EKG nonischemic, symptoms have been persistent for upwards of 2 days without obvious provocation or palliation and troponin remains negative. Patient's symptoms improved over duration of stay with above-stated therapies. Findings and discharge diagnosis discussed with patient/family followed by verbalization of understanding Return precautions discussed with patient/family whom verbalize understanding of diagnosis and plan Discharge Plan Departure Patient Disposition: Home Clinical Impression: Atypical chest pain Instructions: DI for Atypical Chest Pain Activity Restrictions/Additional Instructions: *You have been diagnosed with [atypical chest pain. As we discussed there is no evidence of heart attack, blood clot, dissection, pneumonia, pneumothorax or other diagnosis which would require immediate intervention] *What to do: *Please continue to take your regular medications as directed. *Please follow up with your primary care provider, but as we discussed please call ahead. Let them know you were seen in the Emergency Department and that we ask that you be seen in follow up. We will electronically transmit a record of today's note if your PCP is in our system *Return to Emergency Department if you should have any new, worsening or concerning symptoms, such as [fever greater than 101 F, shaking chills, worsening pain, persistent vomiting or other bothersome symptoms] Prescriptions: No Action aspirin [Adult Aspirin Regimen] 81 mg tablet,delayed release (DR/EC) 81 mg PO DAILY Referrals: Jeison Olivier MD [Physician] - Wilver Vazquez DO [Primary Care Provider] - Stand Alone Forms: Patient Portal/API
--- NOTE | 2022-10-30 11:56 | DI.CT.S_ITS ---
PROCEDURE: CT ANGIO CHEST ABDOMEN PELVIS INDICATIONS: chest and back pain, HTN TECHNIQUE: Precontrast 5 mm thick sections acquired from the lung apices to the iliac crests. After the administration of intravenous contrast, 2.5 mm thick sections again acquired from the lung apices to the iliac crests. Maximum intensity projection (MIP) oblique sagittal and coronal reformats were then acquired. For radiation dose reduction, the following was used: automated exposure control. COMPARISON: None. FINDINGS: Image quality: Excellent. AORTA: The aorta demonstrates atherosclerotic calcification within the abdominal portion. No areas of hemodynamically significant stenosis, vascular occlusion, aneurysmal dilation or dissection. CHEST: Lungs and pleura: No acute airspace opacities. No pleural effusions or pneumothorax. Central and peripheral airways are patent and normal in caliber. Mediastinum: Heart size is normal. No pericardial effusion. No mediastinal or hilar adenopathy by size criteria. Central pulmonary arteries are normal in size. Esophagus is normal in caliber. No hiatal hernias. Bones and chest wall: No axillary adenopathy by size criteria. Thyroid gland is unremarkable . No suspicious bony lesions. No vertebral body compression fractures. ABDOMEN: Vasculature: Celiac trunk and mesenteric arteries are patent. Renal arteries are also patent. Solid organs: Liver is normal in size and enhancement. Gallbladder is unremarkable . Biliary system is non dilated. Pancreas enhances normally. Spleen is normal in size and enhancement. No adrenal nodules. Both kidneys are normal in size and enhancement, without hydronephrosis. Peritoneum and bowel: No free fluid or air. Bowel loops are normal in caliber and wall thickness. Nodes and vessels: No retroperitoneal or mesenteric adenopathy by size criteria. Inferior vena cava is normal in morphology. Miscellaneous: No ventral hernias. PELVIS: Genitourinary: Bladder wall thickness is normal. Miscellaneous: No inguinal hernias or adenopathy. No ventral hernias. Bones: No suspicious bony lesions. No vertebral body compression fractures. Grade 1/2 anterolisthesis of L4 on L5 with pars defect is present. IMPRESSION: No acute process. Aorta demonstrates mild atherosclerotic change. No areas of hemodynamically significant stenosis, occlusion or dissection is identified. Dictated by: Sophia Liu M.D. on 10/30/2022 at 12:40 Approved by: Sophia Liu M.D. on 10/30/2022 at 12:44
[2022-10-30] MEDS: ASPIRIN 81 MG CHEW TAB 324 MG PO (12:11)
[2022-10-30] MEDS: SODIUM CHLORIDE 0.9% 500 ML 1000 ML IV (12:14)
== END 2022-10-30 14:34 | disposition home or self-care (01) ==
PROVIDERS: Emergency Provider Emergency Medicine; Family Provider Family Medicine; PCP Family Medicine
DX: R07.89 Other chest pain (principal); Z79.82 Long term (current) use of aspirin; Z20.822 Contact with and (suspected) exposure to COVID-19
CPT/HCPCS: 36415; 71046; 71275; 74174; 80053; 81003; 82550; 83690; 83735; 83880; 84484; 85025; 85379; 85610; 85730; 86140; 87635; 93005; 93010; 99284; C9803; Q9967

== ENCOUNTER → 2022-11-12 08:04 | Outpatient (CLI) | payer MEDICARE, OTHER, SELFPAY ==
[2019-12-01 22:41] VITALS: BMI 22.4
[2022-11-12 09:43] LABS: Cholesterol 193 mg/dL (140-199); HDL Cholesterol 56 mg/dL (40-60); LDL Cholesterol Calculated 108 mg/dL (<100); Triglycerides 143 mg/dL (35-150)
== END ==
PROVIDERS: Family Provider Family Medicine; PCP Internal Medicine; Referring Provider Internal Medicine; Visit Provider Internal Medicine
DX: E78.2 Mixed hyperlipidemia (principal)
CPT/HCPCS: 36415; 80061

== ENCOUNTER → 2022-12-08 07:46 | Outpatient (CLI) | payer MEDICARE, OTHER, SELFPAY ==
[2019-12-01 22:41] VITALS: BMI 22.4
--- NOTE | 2022-12-08 20:09 | DI.NM.S_ITS ---
DATE OF SERVICE: 12/08/2022 PROCEDURE: Exercise stress test. INDICATION: Chest pain. CARDIAC STRESS: Patient underwent exercise stress test under the supervision of an attending staff using standard Imtiaz protocol. He walked on Imtiaz protocol for 10 minutes and 41 seconds, achieved maximum heart rate of 121, which was 88 percent of target heart rate. Resting blood pressure 128/80 mmHg and peak blood pressure 206/90 mmHg. MARTI minus -110 percent. Achieved 12.8 METs of workload. Baseline rhythm was sinus with sinus bradycardia at a rate of about 46 beats per minute and repolarization changes. During exercise, patient has less than [address] depression in inferolateral leads, which got resolved to baseline within 1 minute in recovery. The patient has substernal chest discomfort at very maximum effort, which got resolved in recovery within 5 minutes. Occasional PACs. No significant sustained arrhythmias. CONCLUSION: 1. Exercise stress test is negative for convincing inducible ischemia. 2. Excellent exercise tolerance. Functional aerobic impairment minus -110 percent. 12.8 metabolic equivalents of workload. Total exercise time 10.41 minutes. Normal hemodynamic response. At peak exercise, patient has substernal chest discomfort, which was on a scale of 1-10, 6 in intensity, and resolved in recovery. No significant sustained arrhythmias. Overall, low risk exercise stress test. Correlate clinically. Xavi Stacy - Fabio/jamil doc#: [id number]/job#: [id number] dd: 12/08/2022 16:50:00 dt: 12/08/2022 19:48:00 DICTATING /COPIES TO: Farzad Haynes MD COPIES MNE: LUNA;
== END ==
PROVIDERS: Family Provider Family Medicine; PCP Internal Medicine; Referring Provider Specialist; Visit Provider Specialist
DX: R07.89 Other chest pain (principal)
CPT/HCPCS: 93017

== ENCOUNTER → 2023-02-17 08:21 | Outpatient (CLI) | payer MEDICARE, OTHER, SELFPAY ==
[2019-12-01 22:41] VITALS: BMI 22.4
[2023-02-17 10:05] LABS: Alanine Aminotransferase 23 IU/L (<50); Albumin 3.9 g/dL (3.5-5.0); Albumin Globulin Ratio 1.5 (1.0-2.8); Alkaline Phosphatase 63 U/L (38-126); Aspartate Aminotransferase 33 IU/L (17-59); BUN Creatinine Ratio 17.5 (6-22); Blood Urea Nitrogen 17 mg/dL (9-20); Calcium 8.9 mg/dL (8.4-10.2); Carbon Dioxide 29 mmol/L (22-32); Chloride 103 mmol/L (98-107); Estimated Glomerular Filt Rate > 60 mL/min (>60); Globulin 2.6 g/dL (1.7-4.1); Glucose 95 mg/dL (80-110); HEMOLYSIS < 15 (0-50); Potassium 4.8 mmol/L (3.4-5.1); Sodium 137 mmol/L (137-145); Total Protein 6.5 g/dL (6.3-8.2)
[2023-02-20 14:08] LABS: Cholesterol, Total 187 mg/dL (100-199); HDL-Cholesterol 70 mg/dL (>39); HDL-Particle (Total) 34.5 umol/L (>=30.5); LDL Particle 996 nmol/L (<1000); LDL Size 21.2 nm (>20.5); LDL-Cholsterol 106 mg/dL (0-99); LP-IR Score <25 (<=45); Small LDL- Particle 261 nmol/L (<=527); Triglycerides 60 mg/dL (0-149)
== END ==
PROVIDERS: Family Provider Family Medicine; PCP Internal Medicine; Referring Provider Specialist; Visit Provider Specialist
DX: E78.00 Pure hypercholesterolemia, unspecified (principal)
CPT/HCPCS: 36415; 80053; 80061; 83704

== ENCOUNTER → 2023-07-01 08:05 | Outpatient (CLI) | payer MEDICARE, OTHER, SELFPAY ==
[2019-12-01 22:41] VITALS: BMI 22.4
[2023-07-01 09:53] LABS: Alanine Aminotransferase 26 IU/L (<50); Albumin Globulin Ratio 1.4 (1.0-2.8); Alkaline Phosphatase 56 U/L (38-126); Aspartate Aminotransferase 34 IU/L (17-59); BUN Creatinine Ratio 19.8 (6-22); Bilirubin Total 0.7 mg/dL (0.2-1.3); Blood Urea Nitrogen 18 mg/dL (9-20); Carbon Dioxide 25 mmol/L (22-32); Chloride 105 mmol/L (98-107); Estimated Glomerular Filt Rate > 60 mL/min (>60); Globulin 2.8 g/dL (1.7-4.1); Glucose 97 mg/dL (80-110); HEMOLYSIS < 15 (0-50); Potassium 4.9 mmol/L (3.4-5.1); Sodium 136 mmol/L (137-145); Total Protein 6.8 g/dL (6.3-8.2)
[2023-07-03 08:41] LABS: Cholesterol, Total 216 mg/dL (100-199); HDL-Cholesterol 72 mg/dL (>39); HDL-Particle (Total) 37.3 umol/L (>=30.5); LDL Particle 1206 nmol/L (<1000); LDL Size 21.8 nm (>20.5); LDL-Cholsterol 130 mg/dL (0-99); LP-IR Score <25 (<=45); Small LDL- Particle 309 nmol/L (<=527); Triglycerides 82 mg/dL (0-149)
== END ==
PROVIDERS: Family Provider Family Medicine; PCP Internal Medicine; Referring Provider Physician Assistant Medical; Visit Provider Physician Assistant Medical
DX: E78.00 Pure hypercholesterolemia, unspecified (principal)
CPT/HCPCS: 36415; 80053; 80061; 83704

== ENCOUNTER → 2023-11-03 09:45 | Outpatient (CLI) | payer MEDICARE, OTHER, SELFPAY ==
[2019-12-01 22:41] VITALS: BMI 22.4
[2023-11-03 10:50] LABS: Add Manual Diff / Slide Review NO; Basophils Absolute Auto 0 /uL (0-100); Basophils Percent Auto 0.3 % (0-2); Eosinophils Absolute Auto 100 /uL (0-450); Eosinophils Percent Auto 1.6 % (2-4); Hematocrit 43.8 % (41-53); Hemoglobin 14.7 g/dL (13.5-17.5); Lymphocytes Absolute Auto 1200 /uL (1100-4500); Lymphocytes Percent Auto 23.8 % (25-40); Mean Corpuscular HGB Conc 33.5 % (30-36); Mean Corpuscular Hemoglobin 31.3 PG (26-34); Mean Corpuscular Volume 93.4 fL (80-100); Monocytes Absolute Auto 600 /uL (0-900); Monocytes Percent Auto 12.4 % (3-14); Neutrophils Absolute Auto 3000 /uL (1500-7000); Neutrophils Percent Auto 61.9 % (50-75); Platelet Count 219 X10^3/uL (150-400); Red Blood Cell Count 4.69 X10^6/uL (4.5-5.9); Red Cell Distribution Width 13.6 % (11.6-14.8); White Blood Cell Count 4.9 X10^3/uL (4.5-11.0)
[2023-11-03 11:25] LABS: Alanine Aminotransferase 28 IU/L (<50); Albumin Globulin Ratio 1.2 (1.0-2.8); Alkaline Phosphatase 61 U/L (38-126); Aspartate Aminotransferase 35 IU/L (17-59); BUN Creatinine Ratio 17.8 (6-22); Bilirubin Total 0.7 mg/dL (0.2-1.3); Blood Urea Nitrogen 16 mg/dL (9-20); C-Reactive Protein Quant 0.7 mg/dL (<1.0); Calcium 9.5 mg/dL (8.4-10.2); Carbon Dioxide 30 mmol/L (22-32); Chloride 101 mmol/L (98-107); Estimated Glomerular Filt Rate > 60 mL/min (>60); Globulin 3.3 g/dL (1.7-4.1); Glucose 92 mg/dL (80-110); HEMOLYSIS < 15 (0-50); Potassium 5.1 mmol/L (3.4-5.1); Sodium 135 mmol/L (137-145); Total Protein 7.3 g/dL (6.3-8.2)
[2023-11-03 11:51] LABS: TSH w/ Reflex to FT4 3.24 uIU/mL (0.47-4.68)
== END ==
PROVIDERS: Family Provider Family Medicine; PCP Internal Medicine; Referring Provider Internal Medicine; Visit Provider Internal Medicine
DX: K59.00 Constipation, unspecified (principal)
CPT/HCPCS: 36415; 80053; 84443; 85025; 86140

== ENCOUNTER → 2023-12-01 17:18 | Outpatient (CLI) | payer MEDICARE, OTHER, SELFPAY ==
[2019-12-01 22:41] VITALS: BMI 22.4
--- NOTE | 2023-12-01 17:21 | DI.RAD.S_ITS ---
PROCEDURE: XR RIBS RT MIN 3V W CXR 1V INDICATIONS: Right posterior rib pain s/p fall during skiing TECHNIQUE: 3 views of the ribs were acquired, along with a single view chest. COMPARISON: [facility], , XR CHEST 2V, 10/30/2022, 9:48. FINDINGS: Surgical changes and devices: None. Bones and chest wall: A marker is placed upon the area of clinical concern. Within this region, minimally displaced fractures can be seen at the 9th, 10th, and 11th ribs posterior laterally. No rib fractures are seen elsewhere. No suspicious bony lesions. Age-appropriate bony degenerative changes are seen. Overlying soft tissues appear unremarkable. Lungs and pleura: No pleural effusions or pneumothorax. Lungs appear clear. Mediastinum: The cardiac contours are within normal limits. The aorta demonstrates calcification and tortuosity. IMPRESSION: Minimally displaced fractures are seen involving the 9th, 10th, and 11th ribs posterior laterally. Dictated by: Dale Arnold M.D. on 12/01/2023 at 17:02 Approved by: Dale Arnold M.D. on 12/01/2023 at 17:04
== END ==
LOC: RAD 17:20
PROVIDERS: Family Provider Family Medicine; PCP Internal Medicine; Referring Provider Registered Nurse; Visit Provider Registered Nurse
DX: R07.81 Pleurodynia (principal)
CPT/HCPCS: 71101

== ENCOUNTER 2024-06-01 08:56 | Emergency (ER) | payer MEDICARE, OTHER, SELFPAY ==
[2019-12-01 22:41] VITALS: BMI 22.4
[2024-06-01] VITALS (12 sets, daily range): BP systolic 131–166; BP diastolic 63–80; PULSE 53–83; RESP 17–23; TEMP 37.4; O2SAT 94–97; BMI 23.6
--- NOTE | 2024-06-01 09:09 | EKG_ITS ---
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
--- NOTE | 2024-06-01 09:09 | DI.RAD.S_ITS ---
PROCEDURE: XR CHEST 1V INDICATIONS: syncope TECHNIQUE: One view of the chest was acquired. COMPARISON: [facility], CR, XR CHEST 2V, 10/30/2022, 9:48. [facility], CR, XR CHEST 1V, 05/31/2021, 7:31. FINDINGS: Surgical changes and devices: None. Lungs and pleura: Mildly prominent interstitium. No dense consolidation or pleural effusion. mildly low lung volumes. Mediastinum: Cardiomediastinal contours are unchanged. Normal heart size Bones and chest wall: Degenerative changes IMPRESSION: No dense consolidation or pleural effusion. Mildly prominent interstitium could represent atypical infection or edema, versus artifact of low lung volumes. Dictated by: Thiago Riley M.D. on 06/01/2024 at 10:44 Approved by: Thiago Riley M.D. on 06/01/2024 at 10:45
--- NOTE | 2024-06-01 09:09 | DI.CT.S_ITS ---
PROCEDURE: CT HEAD/BRAIN WO CON INDICATIONS: syncope TECHNIQUE: Noncontrast 4.5 mm thick angled axial sections acquired from the foramen magnum to the vertex, with coronal and sagittal reformats. For radiation dose reduction, the following was used: automated exposure control, adjustment of mA and/or kV according to patient size. COMPARISON: None. FINDINGS: Image quality: Diagnostic CSF spaces: Basal cisterns are patent. Lateral ventricles are symmetric. Volume: Vascular calcifications. Periventricular white matter disease is commonly seen with chronic microangiopathy. Volume loss is present. These findings are [id number] Brain: No acute hemorrhage. No gross loss of campuzano-white differentiation Craniofacial structures: No significant paranasal sinus opacity IMPRESSION: No acute intracranial hemorrhage. No gross loss of campuzano-white differentiation. If there is high concern for parenchymal pathology, consider further evaluation with MRI. Dictated by: Thiago Riley M.D. on 06/01/2024 at 9:58 Approved by: Thiago Riley M.D. on 06/01/2024 at 9:59
--- NOTE | 2024-06-01 09:09 | DI.CT.S_ITS ---
PROCEDURE: CT CERVICAL SPINE WO CON INDICATIONS: syncope TECHNIQUE: Noncontrast 3 mm thick sections acquired from the skull base to the T4 level. Sagittal and coronal reformats were then constructed. For radiation dose reduction, the following was used: automated exposure control, adjustment of mA and/or kV according to patient size. COMPARISON: None. FINDINGS: Image quality: Diagnostic Bones: No fractures or dislocations. Visualized superior ribs are intact. Mild degenerative changes. Soft tissues: No apical pneumothorax. IMPRESSION: No displaced fracture or traumatic subluxation. Mild degenerative changes. If there is high concern for further derangement, consider MRI evaluation. Dictated by: Thiago Riley M.D. on 06/01/2024 at 9:59 Approved by: Thiago Riley M.D. on 06/01/2024 at 10:00
--- NOTE | 2024-06-01 09:13 | ED_ITS ---
HPI - Syncope General Chief Complaint: Syncope Stated Complaint: Syncope, Fall Time Seen by Provider: 06/01/24 09:05 Source: patient, EMS, RN notes reviewed and old records reviewed Mode of arrival: EMS Limitations: no limitations History of Present Illness HPI narrative: 84-year-old male who presents with complaint of syncopal episode. Patient states he had gotten up this morning had a little bit of nasal congestion he started to feel little bit unwell. States his has recently had upper respiratory infection for the past week. Thinks he is starting to catch it. Had a little bit of mild nosebleed this morning was clearing his nose. States he occasionally gets these although not frequently. States was in the process of clearing his nose for the 3rd time when he left the bathroom while walking and passed out. He did hit his face, he denies any headache. Did not have loss of consciousness does not recall hitting the floor. Described as brief by EMS who took report from family. Patient denies any headache, no neck pain, no back pain, no chest pain or shortness of breath. He denies any nausea or vomiting, did have some urinary incontinence when this occurred. No describes shaking or tonic-clonic activity. No bowel incontinence. He has not had any diarrhea or constipation, no black or bloody stools. Was not have any other urinary symptoms prior to this. Patient denies any numbness tingling or weakness of extremities. No new swelling of extremities. States no daily medications. Does not take an aspirin or other anticoagulation daily. States he has had prior hernia repair, prior tibia plateau fracture repair and had prior rib fracture with pneumothorax remotely. No tobacco, has 2 alcoholic drinks weekly, no recreational drugs. Dr. Olivier is his primary care physician. EMS notes painful was able to ambulate from the house to the ambulance but he would positive orthostatics had systolic pressure of 150 lying flat dropped to 90 systolic when standing and developed a little bit of pallor. Patient's notes he was little bit lightheaded when he ambulated but otherwise felt well. Related Data Home Medications Medication Instructions Recorded Confirmed niacinamide 500 mg tablet 1,000 mg PO DAILY 11/07/22 12/01/23 Allergies Allergy/AdvReac Type Severity Reaction Status Date / Time No Known Drug Allergies Allergy Verified 06/01/24 09:08 Review of Systems Review of Systems ROS Unobtainable: All systems reviewed & are unremarkable except as noted in HPI and below Patient History Medical History Cataracts, bilateral Rosacea (~1993) Actinic keratosis (~1989) Acne (~1949) Fractures Ankle pain (~1997) Hearing loss (~1979) Skin cancer (~1964) Coronary arteriosclerosis Mixed hyperlipidemia Surgical History Anesthesia Pneumothorax History of knee surgery (~1999) History of hernia repair (~194) Breast tumor (~1963) History of Mohs surgery for squamous cell carcinoma in situ of skin History of tonsillectomy Family History Father Cancer Mother Cancer Grandfather Cancer Sister Age: 95 Dementia Social History household members: spouse Smoking Status: Never smoker alcohol intake: current Smoking Status: Never smoker alcohol intake frequency: 0-2 drinks per day Substance Use Type: does not use Exam Narrative Exam Narrative: GEN: Patient appears in mild distress. HEAD: No evidence of trauma, no raccoon/Francois sign. NECK: Nontender, painless range of motion, trachea midline Negative Nexus criteria, no midline line tenderness, distracting injury, altered mental status, neuro deficit, recent EtOH. EYES: PERRLA, EOMI ENT: External inspection normal except for a small superficial wound on the distal tip of the nose proximally 1 cm in size, patient states he saw Dermatology yesterday and had a small biopsy, trachea is midline, TM's are normal no hemotypanum, Nares are clear except for scant amount of dried blood on the upper lip, no septal hematoma, no dental or oral injury, airway is normal and with normal occlusion, No bony tenderness RESP: Chest is nontender and has symmetric movement, no ecchymosis, breath sounds are normal no crackles, wheezes or rales CVS: Heart sounds are normal, no murmur noted, No JVD. ABG/GI: Nontender, soft, normal bowel sounds, no distention, no organomegaly, pelvic rock is negative NEURO: Oriented AOx3, neuro is grossly intact, sensation and motor is normal all 4 extremities moving, cranial nerves II through XII are intact, GCS is 15 PSYCH: Normal mood and affect SKIN: Intact, warm and dry, no crepitus and without decubitus BACK: No CVA tenderness, no vertebral tenderness, no step-off's, no crepitus EXT: Atraumatic, hips are nontender, no pedal edema, normal color and temperature, normal range of motion of extremities with normal tendon exam, 2+ pulses in all four extremities Initial Vital Signs Initial Vital Signs: Vital Signs Temperature 99.3 F 06/01/24 09:02 Pulse Rate 63 06/01/24 09:02 Respiratory Rate 18 06/01/24 09:02 Blood Pressure 156/72 H 06/01/24 09:02 Pulse Oximetry 96 06/01/24 09:02 Oxygen Delivery Method Room Air 06/01/24 09:02 Course Orders Ordered: Discontinued Medications Sodium Chloride (Normal Saline 0.9%) 1,000 mls @ 1,000 mls/hr IV BOLUS ONE Stop: 06/01/24 10:08 Last Infusion: 06/01/24 11:43 Dose: Infused Documented By: Admin: 06/01/24 09:18 Dose: 1,000 mls/hr Documented By: WINDY Vital Signs Vital signs: Vital Signs - 8 hr 06/01/24 10:30 06/01/24 10:30 06/01/24 11:00 Pulse Rate 59 L 59 L Respiratory Rate 20 20 Blood Pressure 146/67 H Pulse Oximetry 95 97 06/01/24 11:00 06/01/24 11:12 06/01/24 11:12 Pulse Rate 61 Respiratory Rate 17 Blood Pressure 131/63 142/72 H Pulse Oximetry 97 06/01/24 11:15 06/01/24 11:15 06/01/24 11:30 Pulse Rate 61 62 Respiratory Rate 17 17 Blood Pressure 142/73 H Pulse Oximetry 97 97 06/01/24 11:30 06/01/24 11:47 06/01/24 11:47 Pulse Rate 64 Respiratory Rate 23 Blood Pressure 155/79 H 166/76 H Pulse Oximetry 94 06/01/24 11:49 Pulse Rate 83 Respiratory Rate 18 Blood Pressure Pulse Oximetry 96 MDM - Syncope Lab Data 06/01/24 08:30 06/01/24 08:30 Labs: Lab Results 06/01/24 06/01/24 Range/Units 08:30 09:15 WBC 5.0 (4.5-11.0) X10^3/uL RBC 4.73 (4.5-5.9) X10^6/uL Hgb 14.8 (13.5-17.5) g/dL Hct 44.1 (41-53) % MCV 93.2 (80-100) fL MCH 31.2 (26-34) PG MCHC 33.5 (30-36) % RDW 13.9 (11.6-14.8) % Plt Count 187 (150-400) X10^3/uL Neut % (Auto) 62.3 (50-75) % Lymph % (Auto) 20.4 L (25-40) % Travis % (Auto) 16.6 H (3-14) % Eos % (Auto) 0.4 L (2-4) % Baso % (Auto) 0.3 (0-2) % Neut # (Auto) 3100 (1641-8836) /uL Lymph # (Auto) 1000 L (5510-1105) /uL Travis # (Auto) 800 (0-900) /uL Eos # (Auto) 0 (0-450) /uL Baso # (Auto) 0 (0-100) /uL Sodium 136 L (137-145) mmol/L Potassium 4.1 (3.4-5.1) mmol/L Chloride 105 (98-107) mmol/L Carbon Dioxide 26 (22-32) mmol/L BUN 19 (9-20) mg/dL Creatinine 1.14 (0.66-1.25) mg/dL Estimated GFR > 60 (>60) mL/min BUN/Creatinine Ratio 16.7 (6-22) Glucose 110 (80-110) mg/dL Calcium 8.6 (8.4-10.2) mg/dL Magnesium 2.1 (1.6-2.3) mg/dL Total Bilirubin 0.5 (0.2-1.3) mg/dL AST 33 (17-59) IU/L ALT 24 (<50) IU/L Alkaline Phosphatase 63 (38-126) U/L Total Creatine Kinase 52 L (55-170) U/L Troponin I < 0.012 (0.01-0.034) ng/mL NT-Pro-B Natriuret Pep 158 (<450) pg/mL Total Protein 6.7 (6.3-8.2) g/dL Albumin 3.9 (3.5-5.0) g/dL Globulin 2.8 (1.7-4.1) g/dL Albumin/Globulin Ratio 1.4 (1.0-2.8) Lipase 72 (23-300) U/L Chlamy pneumoniae PCR Not detected (Not Detect) Adenovirus (PCR) Not detected (Not Detect) B.parapertussis DNA PCR Not detected (Not Detecte) Coronavirus OC43 (PCR) Not detected (Not Detect) Coronavirus HKU1 (PCR) Not detected (Not Detect) Coronavirus 229E (PCR) Not detected (Not Detect) SARS-CoV-2 (PCR) Detected H (Not Detecte) Coronavirus NL63 (PCR) Not detected (Not Detect) Human Metapneumovir PCR Not detected (Not Detect) Influenza Type A (PCR) Not detected (Not Detect) Influenza Type B (PCR) Not detected (Not Detect) M. pneumoniae (PCR) Not detected (Not Detect) Parainfluenza 1 (PCR) Not detected (Not Detect) Parainfluenza 2 (PCR) Not detected (Not Detect) Parainfluenza 3 (PCR) Not detected (Not Detect) Parainfluenza 4 (PCR) Not detected (Not Detect) RSV (PCR) Not detected (Not Detect) Entero/Rhino (PCR) Not detected (Not Detect) Urine Dip Bedside Urine Glucose Negative Bedside Urine Bilirubin - Negative Bedside Urine Ketone - Negative Urine Specific [place] 1.015 Bedside Urine Occult Blood - Negative Bedside Urine pH 6.5 Bedside Urine Protein - Negative Bedside Urine Urobilinogen - Negative Bedside Urine Nitrite - Negative Bedside Urine Leukocytes - Negative Esterase ECG Data Attestation: I personally reviewed and interpreted this ECG as follows: Prior ECG tracings: available for review Interpretation: Sinus bradycardia with premature atrial complexes rate of 56 TN 186 QRS is 66 QTC of 362, nonspecific change patient has prior from 10/30/2022 which appears similar MDM Narrative Medical decision making narrative: 84-year-old male had what sounds like a syncopal episode although did have urinary incontinence but no generalized tonic-clonic activity no persistently altered mental status afterwards. Patient has had possible recent upper respiratory infection has had exposure with his in the house she has been symptomatic for the past week. Patient notes little bit of epistaxis this morning which he has had occasionally. He also notes he has had prior syncopal episodes in the past. Patient is bradycardic but states it his normal baseline. Blood pressure is appropriate while lying down. No difficulty with breathing, no patient is afebrile, normal room O2 sat. Labs white count of 5 hemoglobin of 14 platelets of 187, predominantly monocytes. Sodium 136, electrolytes are overall appropriate creatinine is 1.14, glucose is 110, LFTs are negative troponins less than 0.012. EKG shows sinus bradycardia with premature atrial complexes patient states normal for him to run in the 50s range for his heart rate Chest x-ray no dense consolidation or pleural effusion mildly prominent interstitium could be atypical infection versus edema versus artifact low lung volumes. Head CT and CT C-spine, head CT shows no acute change. No gross loss of campuzano- white differentiation. CT shows no displaced fracture or traumatic subluxation, mild degenerative changes. Respiratory swab is positive for COVID. Urine is negative Patient had 1L of fluids. Patient ambulated in the department, gave urine sample without any issues. He is feeling improved. Reviewed his findings today. All questions answered. Discharge Plan Departure Patient Disposition: Home Clinical Impression: COVID-19 virus infection, Syncope Instructions: DI for Syncope in Adults (Fainting) Activity Restrictions/Additional Instructions: Follow up for recheck as needed. You did test positive for COVID today. This is a viral illness typically last 7-10 days total. Treatment is typically symptomatic you can take Tylenol and/or ibuprofen as needed for fevers. Continue to hydrate regularly as you did have some orthostatic hypotension with EMS. Please return for severe headaches, new chest pain or shortness of breath, any recurrent episodes of lightheadedness or passing out, persistent vomiting, new swelling of your extremities or other new or concerning changes. Prescriptions: No Action niacinamide 500 mg tablet 1,000 mg PO DAILY Referrals: Jeison Olivier MD [Primary Care Provider] - Stand Alone Forms: Patient Portal/API
[2024-06-01] MEDS: SODIUM CHLORIDE 0.9% 1,000 ML 1000 ML IV (09:18)
[2024-06-01 09:22] LABS: Add Manual Diff / Slide Review NO; Basophils Absolute Auto 0 /uL (0-100); Basophils Percent Auto 0.3 % (0-2); Eosinophils Absolute Auto 0 /uL (0-450); Eosinophils Percent Auto 0.4 % (2-4); Hematocrit 44.1 % (41-53); Hemoglobin 14.8 g/dL (13.5-17.5); Lymphocytes Absolute Auto 1000 /uL (1100-4500); Lymphocytes Percent Auto 20.4 % (25-40); Mean Corpuscular HGB Conc 33.5 % (30-36); Mean Corpuscular Hemoglobin 31.2 PG (26-34); Mean Corpuscular Volume 93.2 fL (80-100); Monocytes Absolute Auto 800 /uL (0-900); Monocytes Percent Auto 16.6 % (3-14); Neutrophils Absolute Auto 3100 /uL (1500-7000); Neutrophils Percent Auto 62.3 % (50-75); Platelet Count 187 X10^3/uL (150-400); Red Blood Cell Count 4.73 X10^6/uL (4.5-5.9); Red Cell Distribution Width 13.9 % (11.6-14.8)
[2024-06-01 09:29] LABS: Alanine Aminotransferase 24 IU/L (<50); Albumin 3.9 g/dL (3.5-5.0); Albumin Globulin Ratio 1.4 (1.0-2.8); Alkaline Phosphatase 63 U/L (38-126); Aspartate Aminotransferase 33 IU/L (17-59); BUN Creatinine Ratio 16.7 (6-22); Bilirubin Total 0.5 mg/dL (0.2-1.3); Blood Urea Nitrogen 19 mg/dL (9-20); Calcium 8.6 mg/dL (8.4-10.2); Carbon Dioxide 26 mmol/L (22-32); Chloride 105 mmol/L (98-107); Creatine Kinase 52 U/L (55-170); Estimated Glomerular Filt Rate > 60 mL/min (>60); Globulin 2.8 g/dL (1.7-4.1); Glucose 110 mg/dL (80-110); HEMOLYSIS < 15 (0-50); Lipase 72 U/L (23-300); Magnesium 2.1 mg/dL (1.6-2.3); Potassium 4.1 mmol/L (3.4-5.1); Sodium 136 mmol/L (137-145); Total Protein 6.7 g/dL (6.3-8.2)
[2024-06-01 09:39] LABS: NT-proBNP (BNP-Adult 18+) 158 pg/mL (<450); Troponin I < 0.012 ng/mL (0.01-0.034)
[2024-06-01 10:13] LABS: Adenovirus Not Detected (Not Detect); B. parapertussis Not Detected (Not Detecte); Bordetella pertussis Not Detected (Not Detect); Chlamydophila pneumoniae Not Detected (Not Detect); Coronavirus 229E Not Detected (Not Detect); Coronavirus HKU1 Not Detected (Not Detect); Coronavirus NL 63 Not Detected (Not Detect); Coronavirus OC43 Not Detected (Not Detect); Human Metapneumovirus Not Detected (Not Detect); Human Rhinovirus/Enterovirus Not Detected (Not Detect); Influenza A Not Detected (Not Detect); Influenza B Not Detected (Not Detect); Mycoplasma pneumoniae Not Detected (Not Detect); Parainfluenza Virus 1 Not Detected (Not Detect); Parainfluenza Virus 2 Not Detected (Not Detect); Parainfluenza Virus 3 Not Detected (Not Detect); Parainfluenza Virus 4 Not Detected (Not Detect); Respiratory Syncytial Virus Not Detected (Not Detect)
[2024-06-01 10:22] LABS: SARS- CoV-2 Detected (Not Detecte)
== END 2024-06-01 12:08 | disposition home or self-care (01) ==
PROVIDERS: Emergency Provider Emergency Medicine; Family Provider Family Medicine; PCP Internal Medicine
DX: U07.1 COVID-19 (principal); R55 Syncope and collapse; R04.0 Epistaxis; R00.1 Bradycardia, unspecified
CPT/HCPCS: 70450; 71045; 72125; 80053; 81003; 82550; 83690; 83735; 83880; 84484; 85025; 87633; 93005; 93010; 96360; 96361; 99283; 99284

== ENCOUNTER 2025-01-03 13:29 | Observation (INO) | payer MEDICARE, OTHER, SELFPAY ==
[2019-12-01 22:41] VITALS: BMI 22.4
[2025-01-03] VITALS (14 sets, daily range): BP systolic 127–169; BP diastolic 67–85; PULSE 56–64; RESP 16–29; TEMP 35.8–36.6; O2SAT 97–99; BMI 24.3
--- NOTE | 2025-01-03 13:30 | DI.CT.S_ITS ---
PROCEDURE: CT STROKE INDICATIONS: stroke TECHNIQUE: Noncontrast 4.5 mm thick angled axial sections acquired from the foramen magnum to the vertex, with coronal reformats. For radiation dose reduction, the following was used: automated exposure control, adjustment of mA and/or kV according to patient size. COMPARISON: [facility], CT, CT ANGIO HEAD AND NECK, 01/03/2025, 13:34. [facility], CT, CT HEAD/BRAIN WO CON, 06/01/2024, 9:20. FINDINGS: Image quality: Diagnostic. CSF spaces: Basal cisterns are patent. No extra-axial fluid collections. The ventricles are symmetric in size and shape. Brain: No intracranial bleeds or masses. There is cerebral volume loss for age, with resultant ventricular and sulcal prominence. There are periventricular and deep white matter chronic small vessel ischemic changes. There is intracranial internal carotid artery atherosclerosis. Skull and face: Calvarium and visualized facial bones appear intact, without suspicious lesions. Sinuses: Visualized sinuses and mastoids are clear. IMPRESSION: No acute intracranial pathology. Comment: Findings were discussed with Dr. Diaz on 01/03/2025 at 1347 hours This study fulfills neurological imaging criteria for inclusion or exclusion of acute stroke therapies based on available published neurological guidelines. Dictated by: Ozzy Ag M.D. on 01/03/2025 at 13:46 Approved by: Ozzy Ag M.D. on 01/03/2025 at 13:52
--- NOTE | 2025-01-03 13:30 | DI.RAD.S_ITS ---
PROCEDURE: XR CHEST 1V INDICATIONS: Possible stroke TECHNIQUE: One view of the chest was acquired. COMPARISON: None. FINDINGS: Surgical changes and devices: None. Lungs and pleura: Lungs are clear. No pleural effusions or pneumothorax. Mediastinum: Mediastinal contours appear normal. Heart size is normal. Bones and chest wall: No suspicious bony lesions. Overlying soft tissues appear unremarkable. IMPRESSION: No acute cardiopulmonary pathology. Dictated by: Freddy Toro M.D. on 01/03/2025 at 14:52 Approved by: Freddy Toro M.D. on 01/03/2025 at 14:53
--- NOTE | 2025-01-03 13:34 | ED.GENADULT ---
HPI - General Adult General Chief complaint: Neuro Symptoms/Deficit Stated complaint: Code Stroke Time Seen by Provider: 01/03/25 13:34 History of Present Illness HPI narrative: 84-year-old gentleman with a history of hyperlipidemia presents with concerns for acute stroke. His notes at 11:00 a.m. this morning he was working on the Hublished. When she came home at 12 she found him lying on the bed profusely vomiting and essentially aphasic. Globally weak. She called 911 at 12:30 p.m.. Initial NIH score is 7. Significant expressive aphasia and dysarthria. He is able to move all extremities does struggle with testing for ataxia but is able to do it with all extremities. Unable to test peripheral visual cummings but there are no difficulties with overall extinction. Discussed findings with his who is at the bedside. Related Data Previous Rx's Medication Instructions Recorded rosuvastatin 10 mg tablet 10 mg PO DAILY #90 tabs 06/06/24 Allergies Allergy/AdvReac Type Severity Reaction Status Date / Time No Known Drug Allergies Allergy Verified 06/06/24 10:42 Review of Systems Review of Systems Narrative: Per he has been in his usual state of health with no recent fever, cough, chills complaints of chest pain or headache Patient History Medical History (Updated 01/03/25 @ 15:36 by Mariela Diaz MD) Cataracts, bilateral Rosacea (~1993) Actinic keratosis (~1989) Acne (~1949) Fractures Ankle pain (~1997) Hearing loss (~1979) Skin cancer (~1964) Coronary arteriosclerosis Mixed hyperlipidemia Surgical History Anesthesia Pneumothorax History of knee surgery (~1999) History of hernia repair (~194) Breast tumor (~1963) History of Mohs surgery for squamous cell carcinoma in situ of skin History of tonsillectomy Family History Father Cancer Mother Cancer Grandfather Cancer Sister Age: 95 Dementia Social History household members: spouse Smoking Status: Never smoker alcohol intake: current Smoking Status: Never smoker alcohol intake frequency: 0-2 drinks per day Exam Initial Vital Signs Initial Vital Signs: Vital Signs Temperature 97.3 F L 01/03/25 13:43 Pulse Rate 61 01/03/25 13:43 Respiratory Rate 26 H 01/03/25 13:43 Blood Pressure 161/81 H 01/03/25 13:43 Pulse Oximetry 98 01/03/25 13:43 Oxygen Delivery Method Room Air 01/03/25 13:43 General: Older appearing in obvious distress with expressive aphasia and significant dysarthria HEENT: Moist mucous membranes, normal sclera with reactive pupils, Respiratory: Lungs are clear to auscultation, no wheezing no rales no rhonchi. Full and symmetrical air movement Cardiac: Regular rate and rhythm no murmurs no bruits Abdomen: Soft, nontender, good bowel tones, no flank pain Skin: Warm and dry, no rashes Neurologic: He can move all 4 extremities all are slightly weak, all have some difficulty with ataxia but he is able to reproduce. He is able to follow instructions, significant expressive aphasia with dysarthria, NIH score initially a 7 Extremities: No trauma, well perfused Psych: Cooperative, Course Orders Ordered: ED Orders 01/03/25 13:05 Complete Blood Count AUTO DIFF Stat Comprehensive Metabolic Panel Stat Magnesium Stat PTT Partial Thromboplastin [place] Stat Prothrombin Time INR Stat Troponin & CK Cardiac Panel Stat 01/03/25 13:30 CT Stroke Stat XR chest 1V Stat Urine Drug Screen, Rapid Stat EKG-12 Lead Stat 01/03/25 13:35 CT angio head and neck Stat Ondansetron HCl (Ondansetron 4 Mg/2 Ml Inj) 4 mg IV NOW PRN PRN Reason: Nausea And Vomiting Last Admin: 01/03/25 14:23 Dose: 4 mg Documented By: SARAH Ondansetron HCl (Ondansetron 4 Mg Odt) 4 mg SL NOW PRN PRN Reason: Nausea And Vomiting Vital Signs Vital signs: Vital Signs - 8 hr 01/03/25 13:43 01/03/25 13:45 01/03/25 14:00 Temperature 97.3 F L Pulse Rate 61 60 56 L Respiratory Rate 26 H 29 H 28 H Blood Pressure 161/81 H 157/73 H 156/83 H Pulse Oximetry 98 98 99 Oxygen Delivery Method Room Air Room Air 01/03/25 14:15 01/03/25 14:30 Temperature Pulse Rate 58 L 58 L Respiratory Rate 18 20 Blood Pressure 154/76 H 169/79 H Pulse Oximetry 99 98 Oxygen Delivery Method Room Air Medical Decision Making Lab Data 01/03/25 13:05 01/03/25 13:05 Labs: Lab Results 01/03/25 Range/Units 13:05 WBC 6.5 (4.5-11.0) X10^3/uL RBC 4.71 (4.5-5.9) X10^6/uL Hgb 14.5 (13.5-17.5) g/dL Hct 43.3 (41-53) % MCV 92.0 (80-100) fL MCH 30.8 (26-34) PG MCHC 33.5 (30-36) % RDW 13.5 (11.6-14.8) % Plt Count 253 (150-400) X10^3/uL Neut % (Auto) 51.1 (50-75) % Lymph % (Auto) 31.5 (25-40) % [place] % (Auto) 13.2 (3-14) % Eos % (Auto) 3.7 (2-4) % Baso % (Auto) 0.5 (0-2) % Neut # (Auto) 3300 (8581-3538) /uL Lymph # (Auto) 2000 (4505-0619) /uL [place] # (Auto) 900 (0-900) /uL Eos # (Auto) 200 (0-450) /uL Baso # (Auto) 0 (0-100) /uL PT 11.5 (9.4-12.5) SECONDS INR 1.0 (0.9-1.3) APTT 28 (25.1-36.5) SECONDS Sodium 138 (137-145) mmol/L Potassium 3.5 (3.4-5.1) mmol/L Chloride 105 (98-107) mmol/L Carbon Dioxide 21 L (22-32) mmol/L BUN 20 (9-20) mg/dL Creatinine 0.96 (0.66-1.25) mg/dL Estimated GFR > 60 (>60) mL/min BUN/Creatinine Ratio 20.8 (6-22) Glucose 146 H (80-110) mg/dL Calcium 9.4 (8.4-10.2) mg/dL Magnesium 2.1 (1.6-2.3) mg/dL Total Bilirubin 0.4 (0.2-1.3) mg/dL AST 40 (17-59) IU/L ALT 31 (<50) IU/L Alkaline Phosphatase 80 (38-126) U/L Total Creatine Kinase 97 (55-170) U/L Troponin I < 0.012 (0.01-0.034) ng/mL Total Protein 6.9 (6.3-8.2) g/dL Albumin 4.1 (3.5-5.0) g/dL Globulin 2.8 (1.7-4.1) g/dL Albumin/Globulin Ratio 1.5 (1.0-2.8) MDM Narrative Medical decision making narrative: CC: Acute stroke, last known well 11:00 a.m. Complicating co-morbidities: Hyperlipidemia Data collected from: Medics, Medical records reviewed: Primary care records reviewed Differential considered: Ischemic stroke, intracranial bleed, intracranial tumor Exam documented above, pertinent findings include: Patient is alert can follow commands significant expressive aphasia with dysarthria. Globally weak Heart, lungs, abdomen are benign. Lab Test results independently reviewed as above. Pertinent findings: CBC is unremarkable Chemistries are reassuring Troponin is not elevated BNP is not elevated Independently reviewed EKG: Sinus rhythm at a rate of 61 no acute ischemia Imaging studies independently reviewed: CT head reviewed in real-time with radiologist shows no acute bleed CT angiogram of the head and neck reviewed in real-time with Radiology and neurologist both agree no obvious occlusion and no large vessel occlusion Chest x-ray shows no significant pathology Consultations: Treatments: Re-evaluations: Discussion: [address], evaluated and CT 142 Report taken from medics 145 discussed probability of TNK with pharmacist 147 re-evaluate patient NIH score is 7 149 discussed TNK with [address] scan with Radiology no bleed 152 decision to continue with TNK, because of the global weakness without acute localizing signs I do want to discuss this with Teleneurology phone call and consult requested Patient does not have any acute contraindications to TNK. He has not on blood thinners, no recent surgical intervention, head CT does not show any bleeding or tumors, initial blood pressure 156/83 201 stroke neurology 207 asking for video exam, 213 re-exam with Dr Snow. Patient's verbal skills are significantly improved. He is able to speak with minimal dysarthria, repeat words and read brief sentences. His NIH score is now down to 2. We reviewed need for TNK between the Neurologist, myself the patient who now is able to actively state his intentions as well as his , with fairly rapid improvement we will hold on TNK for now 330 patient is re-evaluated. Labs reviewed. His speech is almost entirely back to baseline. He still feels globally weak. Nausea is controlled at this point. I still do not have a full explanation for his acute symptoms, I am still concerned for a stroke. Have discussed his care with the admitting hospitalist, he will be given aspirin and Plavix, he has passed his swallow eval in the emergency department. He will be admitted for further workup Additional Information: Stroke & Stroke Rehabilitation: Thrombolytic Therapy [] The patient, who arrived at the hospital within 3.5 hours of time last known well, was diagnosed with subacute or acute ischemic stroke. An IV thrombolytic therapy was initiated within 4.5 hours of time last known well. [SATISFIES MIPS PERFORMANCE] [] The patient was diagnosed with subacute or acute ischemic stroke. An IV thrombolytic therapy was not initiated within 4.5 hours of last known well due to [select]: [MIPS PERFORMANCE EXCEPTION/EXCLUSION] [] Patient arrived more than 3.5 hours after last known well time, or the time last known well is unknown [] Patient has a medical contra-indication or reason for not administering an IV thrombolytic therapy (ex. neurologist does not believe a thrombolytic is appropriate, active internal bleeding, serious head trauma, acute current or history of intracranial hemorrhage, uncontrollable hypertension, seizure at onset of stroke, CVA in last 3 months, Intracranial or intraspinal surgery in last 3 months, bleeding disorder, thrombocytopenia < 100,000, early radiographic ischemic changes on head CT, INR > 1.7, intracranial neoplasm, AVM, or aneurysm, patient in stroke trial, patient admitted for elective carotid intervention) [x] Patient or family declined an IV thrombolytic [] The patient, who arrived at the hospital within 3.5 hours of time last known well, was diagnosed with subacute or acute ischemic stroke. An IV thrombolytic was not initiated within 4.5 hours of time last known well. [DOES NOT SATISFY MIPS PERFORMANCE] Patient was rapidly improving and diagnosis of actual stroke was being called into question. Critical Care Time Critical Care Time Critical Care Time: Yes Total Critical Care Time: 33 Attestation: Critical care time is separate from other billable procedures. There is a high probability of a significant, sudden or life-threatening deterioration that requires my full and direct attention, intervention and personal management. This critical care time includes consultation with family and other consulting doctors, review of records, and interpretation of data from labs, EKGs and imaging as well as managements of acute stroke, consideration with TNK, immediate consultation with Radiology and Neurology Discharge Plan Departure Patient Disposition: Admitted As Inpatient Clinical Impression: Weakness Cerebrovascular accident Qualifiers: CVA mechanism: unspecified Qualified Code(s): I63.9 - Cerebral infarction, unspecified Vomiting Qualifiers: Vomiting type: unspecified Nausea presence: with nausea Qualified Code(s): R11.2 - Nausea with vomiting, unspecified Admit Date/Time: 01/03/25 15:33 Admit Provider: Regino Molina
--- NOTE | 2025-01-03 13:35 | DI.CT.S_ITS ---
PROCEDURE: CT ANGIO HEAD AND NECK INDICATIONS: stroke TECHNIQUE: After the administration of intravenous contrast, 1 mm thick sections acquired from the aortic arch through the [place] of [place]. 3-dimensional nhsaxbi-jtjzdrgqp-ufthbtjzan (MIP) and/or volume rendering reformats were acquired of the central intracranial vasculature and neck separately. For radiation dose reduction, the following was used: automated exposure control, adjustment of mA and/or kV according to patient size. COMPARISON: [facility], CT, CT STROKE, 01/03/2025, 13:34. FINDINGS: Image quality: Diagnostic. BRAIN: CSF spaces: Ventricles are normal in size and shape. Basal cisterns are patent. No extra-axial fluid collections. Brain: No significant abnormality of the brain can be seen. Skull and face: Calvarium and facial bones appear intact, without suspicious lesions. Orbits appear normal. Sinuses: Sinuses and mastoids are clear. HEAD CT ANGIOGRAPHY: Anterior circulation: Intracranial internal carotid arteries are normal in size and flow. The flow within the paired anterior cerebral arteries is normal and symmetric. The flow within the middle cerebral arteries is normal and symmetric. The anterior communicating artery is seen. No aneurysms are seen. Posterior circulation: Visualized portions of the vertebral arteries demonstrate normal variant relatively small diffuse caliber giving rise to a normal variant relatively small caliber basilar artery. This is in the setting of bilateral origin of the posterior cerebral arteries off the anterior circulation. Flow within the posterior cerebral arteries is normal and symmetric. No aneurysms are seen. NECK CT ANGIOGRAPHY: Carotid system: The great vessels demonstrate a conventional anatomy as they arise from the aortic arch. The origins of the common carotid arteries appear patent. The common carotid arteries demonstrate normal caliber and courses. The bifurcation regions are both widely patent. There are mild bilateral less than 50% proximal internal carotid artery stenosis. Posterior circulation: There is normal variant somewhat diffusely diminutive bilateral vertebral arteries giving rise to a normal variant somewhat diffusely diminutive basilar artery, in the setting of bilateral origins of the posterior cerebral arteries off the anterior circulation. Soft tissues: Visualized neck soft tissues demonstrate no suspicious abnormalities. Bones: No suspicious bony lesions. Visualized cervical spine appears normally aligned. IMPRESSION: No significant intracranial arterial abnormality is seen. No significant abnormality is seen within the arteries of the neck. Any quantitative measurements of stenosis were performed using NASCET criteria. Dictated by: Ozzy Ag M.D. on 01/03/2025 at 13:52 Approved by: Ozzy Ag M.D. on 01/03/2025 at 13:54
--- NOTE | 2025-01-03 13:43 | EKG_ITS ---
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
[2025-01-03 13:47] LABS: Add Manual Diff / Slide Review NO; Basophils Absolute Auto 0 /uL (0-100); Basophils Percent Auto 0.5 % (0-2); Eosinophils Absolute Auto 200 /uL (0-450); Eosinophils Percent Auto 3.7 % (2-4); Hematocrit 43.3 % (41-53); Hemoglobin 14.5 g/dL (13.5-17.5); Lymphocytes Absolute Auto 2000 /uL (1100-4500); Lymphocytes Percent Auto 31.5 % (25-40); Mean Corpuscular HGB Conc 33.5 % (30-36); Mean Corpuscular Hemoglobin 30.8 PG (26-34); Monocytes Absolute Auto 900 /uL (0-900); Monocytes Percent Auto 13.2 % (3-14); Neutrophils Absolute Auto 3300 /uL (1500-7000); Neutrophils Percent Auto 51.1 % (50-75); Platelet Count 253 X10^3/uL (150-400); Red Blood Cell Count 4.71 X10^6/uL (4.5-5.9); Red Cell Distribution Width 13.5 % (11.6-14.8); White Blood Cell Count 6.5 X10^3/uL (4.5-11.0)
[2025-01-03 13:54] LABS: Prothrombin Time 11.5 SECONDS (9.4-12.5)
[2025-01-03 13:56] LABS: PTT Partial Thromboplastin Tim 28 SECONDS (25.1-36.5)
--- NOTE | 2025-01-03 14:11 | PC.NURSE ---
Tele Stroke with [facility] neuro completed at bedside. Patient showing significant improvement in his speech and answering questions appropriately. At this time TNKase is not indicated per [facility] neuro and patient states he does not want to receive it after risks reviewed with Dr. Diaz.
[2025-01-03 14:22] LABS: Alanine Aminotransferase 31 IU/L (<50); Albumin 4.1 g/dL (3.5-5.0); Albumin Globulin Ratio 1.5 (1.0-2.8); Alkaline Phosphatase 80 U/L (38-126); Aspartate Aminotransferase 40 IU/L (17-59); BUN Creatinine Ratio 20.8 (6-22); Bilirubin Total 0.4 mg/dL (0.2-1.3); Blood Urea Nitrogen 20 mg/dL (9-20); Calcium 9.4 mg/dL (8.4-10.2); Carbon Dioxide 21 mmol/L (22-32); Chloride 105 mmol/L (98-107); Creatine Kinase 97 U/L (55-170); Estimated Glomerular Filt Rate > 60 mL/min (>60); Globulin 2.8 g/dL (1.7-4.1); Glucose 146 mg/dL (80-110); HEMOLYSIS < 15 (0-50); Magnesium 2.1 mg/dL (1.6-2.3); Potassium 3.5 mmol/L (3.4-5.1); Sodium 138 mmol/L (137-145); Total Protein 6.9 g/dL (6.3-8.2)
[2025-01-03] MEDS: ONDANSETRON 4 MG/2 ML INJ IV (14:23)
[2025-01-03 14:33] LABS: Troponin I < 0.012 ng/mL (0.01-0.034)
[2025-01-03] MEDS: ASPIRIN 81 MG CHEW TAB 324 MG PO (15:55)
[2025-01-03] MEDS: CLOPIDOGREL 75 MG TABLET PO (15:55)
--- NOTE | 2025-01-03 16:34 | PM.HP.1 ---
History of Present Illness History of Present Illness Date Patient Seen: 01/03/25 Chief complaint: Code Stroke Narrative: Summary: The patient is an 84-year-old male with history of hyperlipidemia. His saw him 11:00 a.m. and then again at noon when she returned to the house. At that time he was on the bed profusely vomiting and not able to speak. He was brought to the hospital and evaluated as a code stroke. Upon his arrival he had a significant expressive aphasia and an NIH score of 7. He was able to move all extremities. The patient had rapid improvement and ultimately was discussed with tele stroke and felt to not be a great candidate for lytics as he was improving rapidly. Initial brain imaging was unremarkable including a CTA which was negative for large vessel occlusion. The patient has no history of TIA or stroke. ED course: The patient was given aspirin and Plavix in the emergency department. He does take a chronic rosuvastatin dose which she did take this morning. Additional history: The patient notes he was feeling fine this morning and went for several mi hike with his dog which he does several times a week. He was quite physically active. 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 He then became somewhat nauseated and lightheaded and went to the bedroom. He vomited multiple times and was found by his about 45 minutes after she left to be diaphoretic and somewhat in coherent. EMS was called, they had initial issues or trouble getting a blood pressure read on him and deferred to the ambulance because they could not get the blood pressure. The placed in oximeter as finger with sats of 98% and a heart rate of 55, which is his chronic heart rate. There may have been some speech issues, however he was able to convey what he wanted her to do with his computer and had no word salad or clear aphasia. There is also no slurred speech. The patient does have a history of vasovagal episodes and did describe being dizzy but not having vertigo at the time of the event. [facility] Medical History Cataracts, bilateral Rosacea (~1993) Actinic keratosis (~1989) Acne (~1949) Fractures Ankle pain (~1997) Hearing loss (~1979) Skin cancer (~1964) Coronary arteriosclerosis Mixed hyperlipidemia Surgical History Anesthesia Pneumothorax History of knee surgery (~1999) History of hernia repair (~1945) Breast tumor (~1963) History of Mohs surgery for squamous cell carcinoma in situ of skin History of tonsillectomy Family History Father Cancer Mother Cancer Grandfather Cancer Sister Age: 96 Dementia Social History household members: spouse Smoking Status: Never smoker alcohol intake: current Meds Home Medications and Allergies Home Medications Medication Instructions Recorded Confirmed Type No Known Home Medications 01/03/25 01/03/25 History Allergies Allergy/AdvReac Type Severity Reaction Status Date / Time No Known Drug Allergies Allergy Verified 06/06/24 10:42 Review of Systems Review of Systems Narrative: All else reviewed and otherwise unremarkable except as noted in the history and physical. Exam Vital Signs (past 8 hours): - 01/03/25 13:43 01/03/25 13:45 01/03/25 14:00 Temperature 97.3 F L Pulse Rate 61 60 56 L Respiratory Rate 26 H 29 H 28 H Blood Pressure 161/81 H 157/73 H 156/83 H Pulse Oximetry 98 98 99 Oxygen Delivery Method Room Air Room Air 01/03/25 14:15 01/03/25 14:30 01/03/25 14:45 Temperature Pulse Rate 58 L 58 L 61 Respiratory Rate 18 20 17 Blood Pressure 154/76 H 169/79 H Pulse Oximetry 99 98 98 Oxygen Delivery Method Room Air 01/03/25 14:45 01/03/25 15:00 01/03/25 15:00 Temperature Pulse Rate 61 Respiratory Rate 19 Blood Pressure 152/67 H 147/70 H Pulse Oximetry 97 Oxygen Delivery Method 01/03/25 15:15 01/03/25 15:15 01/03/25 15:30 Temperature Pulse Rate 61 64 Respiratory Rate 20 21 Blood Pressure 147/72 H Pulse Oximetry 97 98 Oxygen Delivery Method 01/03/25 15:30 01/03/25 15:45 01/03/25 15:45 Temperature Pulse Rate 62 Respiratory Rate 21 Blood Pressure 146/72 H 140/69 Pulse Oximetry 97 Oxygen Delivery Method 01/03/25 16:00 01/03/25 16:00 01/03/25 16:15 Temperature Pulse Rate 63 60 Respiratory Rate 20 19 Blood Pressure 137/69 Pulse Oximetry 98 97 Oxygen Delivery Method 01/03/25 16:15 Temperature Pulse Rate Respiratory Rate Blood Pressure 127/67 Pulse Oximetry Oxygen Delivery Method Oxygen Delivery Method Room Air Narrative Exam Narrative: NAD, alert and oriented, fluent speech, calm. Normocephalic skull, EOMI, anicteric sclera, symmetric pupils. Oropharynx unremarkable, no droop. Neck supple, midline trachea, no adenopathy. Lungs clear, normal rate and effort. Heart regular, no murmur gallop or rub. Abdomen is soft, non distended and non tender. Extremities are free of edema. Skin is free of rash or lesions. Joints are not swollen or deformed. Judgment appears to be normal. Objective ECG Impression: Intervals [place] Rate: 61 P: 51 [place]: 140 QRS: -11 QRSD: 74 T: 6 QT: 454 QTc: 457 Interpretive Statements Normal sinus rhythm Nonspecific ST abnormality Imaging Multiple studies:: Radiologist's impression: CT brain: No acute intracranial pathology. CTA head and neck: No significant intracranial arterial abnormality is seen. No significant abnormality is seen within the arteries of the neck. Chest x-ray: Clear by my read. Labs 01/03/25 13:05 01/03/25 13:05 Labs: Laboratory Results - last 24 hr 01/03/25 13:05 WBC 6.5 RBC 4.71 Hgb 14.5 Hct 43.3 MCV 92.0 MCH 30.8 MCHC 33.5 RDW 13.5 Plt Count 253 Neut % (Auto) 51.1 Lymph % (Auto) 31.5 [place] % (Auto) 13.2 Eos % (Auto) 3.7 Baso % (Auto) 0.5 Neut # (Auto) 3300 Lymph # (Auto) 2000 [place] # (Auto) 900 Eos # (Auto) 200 Baso # (Auto) 0 PT 11.5 INR 1.0 APTT 28 Sodium 138 Potassium 3.5 Chloride 105 Carbon Dioxide 21 L BUN 20 Creatinine 0.96 Estimated GFR > 60 BUN/Creatinine Ratio 20.8 Glucose 146 H Calcium 9.4 Magnesium 2.1 Total Bilirubin 0.4 AST 40 ALT 31 Alkaline Phosphatase 80 Total Creatine Kinase 97 Troponin I < 0.012 Total Protein 6.9 Albumin 4.1 Globulin 2.8 Albumin/Globulin Ratio 1.5 Assessment & Plan Assessment & Plan narrative: 1. TIA vs vasovagal episode, present on admission and active. 2. Hyperlipidemia, present on admission and active. Plan: MRI of the brain to rule out stroke. Dual antiplatelet therapy and continue rosuvastatin. Monitor vital signs and telemetry tonight. Physical therapy and occupational assessments in the morning. 2D echo in the morning. His last echo was in 2020 which was fairly normal with an EF of 60-65%. Anticipate 1 midnight in the hospital, supports observation status. He is full code, clarified with him today. His is his proxy decision maker. Time-Based Coding :: 35 min spent with patient and on the chart (including review of chart, obtaining history, exam, reviewing outside data, placing orders, documenting exam and treatment plan, and counseling patient) on 01/03. Quality MIPS - Admit I confirm the patient?s Advance Care Plan is present, Code status is documented, Surrogate decision maker is in patient?s record [If Yes, STOP here]: Yes MIPS - Meds 'Current medications' to include all prescriptions, [id number] products, herbals, cannabis/cannabidiol products, and vitamin/mineral/dietary (nutritional) supplements. I have utilized all available resources to obtain, update, or review the patient?s current medications. [If Yes, STOP here]: Yes
--- NOTE | 2025-01-03 16:55 | DI.MRI.S_ITS ---
PROCEDURE: MR HEAD/BRAIN WO CON INDICATIONS: Aphasia TECHNIQUE: Non-contrast axial T1 spin echo, axial T2 fast spin echo, sagittal and axial FLAIR, coronal T2 fast spin echo, axial gradient echo, axial diffusion and ADC through the brain. COMPARISON: [facility], CT, CT ANGIO HEAD AND NECK, 01/03/2025, 13:34. [facility], CT, CT STROKE, 01/03/2025, 13:34. FINDINGS: Image quality: Diagnostic CSF spaces: Ventricles appear symmetric in size and shape. Basal cisterns are patent. No extra-axial fluid collections. Brain: No intracranial bleeds or mass effects. There is cerebral volume loss for age. There are periventricular and deep white matter chronic small vessel ischemic changes. Brainstem appears normal. Diffusion-weighted images show no acute infarct. No chronic ischemic insults. Normal intravascular flow voids are present. Skull and face: Calvarial bone marrow is normal in signal. Orbits are normal. Sinuses: Sinuses and mastoids are clear. IMPRESSION: MRI brain without acute intracranial abnormalities. No evidence for acute cerebral infarction/ischemia. Age related senescent changes and sequela of chronic small vessel ischemic disease. Dictated by: Fabien Gonsales M.D. on 01/03/2025 at 17:38 Approved by: Fabien Gonsales M.D. on 01/03/2025 at 17:41
--- NOTE | 2025-01-03 16:55 | DI.ECHO.S_ITS ---
[place] [facility] : : [id number] : : [place] : : [id number] : : Phone: [phone] Echocardiogram Report + + :Name: RUDDY ACOSTA Study Date: 01/04/2025 Height: 70 in : :[facility] ReadingLocation: Weight: 169 lb : : Gender: Male BSA: 1.9 m2 : :: 1940 Age: 84 yrs BP: 114/69 mmHg: :Reason For Study: STROKE : :Ordering Physician: OBINNA, : :JASON Back Performed By: Evelyn Lizarraga : :Referring: JASON YEBOAH : + + Interpretation Summary Sinus bradycardia with heart rate 49-57 bpm. Normal LV size and wall thickness. Normal wall motion and LV systolic function. Ejection fraction 60-65%. Mildly dilated RV with normal RV systolic function. Otherwise normal mild chamber sizes. No significant valvular abnormalities. No source of embolism found. No PFO based on color flow Doppler. Bubble study was not done. Compared to prior study January 09, 2021 no changes have occurred. Procedure: A two-dimensional transthoracic echocardiogram with color flow and Doppler was performed. The study quality was technically adequate. Comparison is made with the echocardiogram of 01/09/2021. The patient was in sinus bradycardia with heart rates between 49-57 bpm during the exam. Left Ventricle: Proximal septal thickening is noted. The left ventricle is normal in size. The ejection fraction is estimated to be 60-65%. Right Ventricle: The right ventricle is mildly dilated. The right ventricular systolic function is normal. Atria: The left atrial size is normal. Right atrial size is normal. There is no Doppler evidence for an interatrial shunt. Mitral Valve: The mitral valve leaflets appear to open well. There is mild mitral regurgitation. Aortic Valve: The aortic valve is trileaflet. The aortic valve opens well. There is no aortic valve stenosis. There is trace aortic regurgitation. Tricuspid Valve: The tricuspid valve leaflets are thin and pliable. No tricuspid regurgitation. Pulmonary artery pressures cannot be estimated because of the lack of a measurable TR jet velocity. Pulmonic Valve: The pulmonic valve leaflets are thin and pliable; valve motion is normal. There is no pulmonic valvular regurgitation. Great Vessels: The aortic root is normal size. The ascending aorta could not be visualized. The IVC is of normal diameter and collapses greater than 50% with a sniff. This suggests a low right atrial pressure of 3 mm Hg. Pericardium/ Pleura There is no pericardial effusion. There is an anterior echo-free space consistent with a fat pad. There is no pleural effusion. MMode/2D Measurements & Calculations LVIDd: 4.8 cm LVOT diam: 2.0 cm LVIDs: 3.0 cm Ao root diam: 3.3 cm FS: 38.4 % Ao Arch Diam (Prox Trans): 2.8 cm EPSS: 0.67 cm IVSd: 0.86 cm LVPWd: 0.77 cm LV robins. diameter/BSA (cm/m^2): 2.5 LV sys. diameter/BSA (cm/m^2): 1.5 LA A2 area: 12.6 cm2 RA long axis: 5.3 cm LA A4 area: 15.7 cm2 RA area: 14.5 cm2 LA length (vol): 4.9 cm RA vol: 33.6 ml LA vol: 34.3 ml RA : 17.3 ml/m2 LA vol index: 17.6 ml/m2 IVC diam: 1.6 cm RVD1 (basal): 4.2 cm TAPSE: 2.4 cm Doppler Measurements & Calculations Ao V2 max: 121.0 cm/sec LVOT Max Vin: 106.3 cm/sec Ao V2 mean: 84.6 cm/sec LV V1 max P.5 mmHg Ao max P.9 mmHg LV V1 VTI: 26.4 cm Ao mean P.2 mmHg MURTAZA(I,D): 2.8 cm2 Ao V2 VTI: 30.4 cm MURTAZA(V,D): 2.8 cm2 sev ratio: 0.87 MURTAZA indexed to BSA (cm^2/m^2): 1.4 MV E max vin: 67.3 cm/sec PA V2 max: 86.9 cm/sec MV A max vin: 63.7 cm/sec PA V2 mean: 59.2 cm/sec MV E/A: 1.1 PA mean P.6 mmHg Med Peak E' Vin: 10.1 cm/sec PA pr(Accel): 19.9 mmHg E/E' med: 6.6 Lat Peak E' Vin: 11.0 cm/sec E/E' lat: 6.1 E/e' average: 6.4 MV dec time: 0.21 sec SV(LVOT): 84.1 ml Electronically signed by: Miesha Leyva M.D. on Reading Physician:01/04/2025 11:38 AM
[2025-01-03 17:20] LABS: Cholesterol 183 mg/dL (140-199); HDL Cholesterol 45 mg/dL (40-60); LDL Cholesterol Calculated 104 mg/dL (<100); Triglycerides 171 mg/dL (35-150)
[2025-01-03 17:22] LABS: Hemoglobin A1C% w Est Avg Glu 5.2 % (4.0-6.0)
[2025-01-03 18:09] LABS: Ur Creatinine Normal (Normal); Ur Specific Gravity Normal (Normal); Urine pH Normal (Normal)
[2025-01-03 18:10] LABS: UR Morphine/Opiate cutoff 300 Negative (Negative); Urine Amphetamines Negative (Negative); Urine Barbiturates Negative (Negative); Urine Benzodiazepines Negative (Negative); Urine Cocaine Negative (Negative); Urine MDMA Negative (Negative); Urine Methadone Negative (Negative); Urine Methamphetamines Negative (Negative); Urine Oxycodone Negative (Negative); Urine Phencyclidine Negative (Negative); Urine Tetrahydrocannabinol Positive (Negative); Urine Tricyclic Antidepressant Negative (Negative)
--- NOTE | 2025-01-03 18:28 | PC.NURSE ---
Pt arrived via ED. settled to bed. attentive at bedside. Dr. Molina in to talk with Pt and his . 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 Skin intact. no bruising noted. Pt self reports to be healthy without issue. Pt off to MRI. activity melissa well.
[2025-01-03] MEDS: ATORVASTATIN 20 MG TABLET PO (20:44)
[2025-01-03] MEDS: HEPARIN 5,000 UNIT/ML VIAL 5000 UNIT SUBCUT (20:44)
[2025-01-04 05:13] VITALS: BP 114/69; PULSE 54; RESP 16; O2SAT 98
[2025-01-04 05:28] LABS: Add Manual Diff / Slide Review NO; Basophils Absolute Auto 0 /uL (0-100); Basophils Percent Auto 0.5 % (0-2); Eosinophils Absolute Auto 100 /uL (0-450); Eosinophils Percent Auto 1.1 % (2-4); Hematocrit 39.6 % (41-53); Hemoglobin 13.5 g/dL (13.5-17.5); Lymphocytes Absolute Auto 1300 /uL (1100-4500); Lymphocytes Percent Auto 15.2 % (25-40); Mean Corpuscular HGB Conc 34.2 % (30-36); Mean Corpuscular Hemoglobin 31.3 PG (26-34); Mean Corpuscular Volume 91.4 fL (80-100); Monocytes Absolute Auto 900 /uL (0-900); Monocytes Percent Auto 11.1 % (3-14); Neutrophils Absolute Auto 6000 /uL (1500-7000); Neutrophils Percent Auto 72.1 % (50-75); Platelet Count 210 X10^3/uL (150-400); Red Blood Cell Count 4.33 X10^6/uL (4.5-5.9); Red Cell Distribution Width 13.4 % (11.6-14.8); White Blood Cell Count 8.3 X10^3/uL (4.5-11.0)
[2025-01-04 05:43] LABS: BUN Creatinine Ratio 24.4 (6-22); Blood Urea Nitrogen 20 mg/dL (9-20); Calcium 8.7 mg/dL (8.4-10.2); Carbon Dioxide 25 mmol/L (22-32); Chloride 105 mmol/L (98-107); Estimated Glomerular Filt Rate > 60 mL/min (>60); Glucose 105 mg/dL (80-110); HEMOLYSIS < 15 (0-50); Potassium 3.8 mmol/L (3.4-5.1); Sodium 136 mmol/L (137-145)
[2025-01-04 07:30] VITALS: BP 146/85; PULSE 53; RESP 14; TEMP 36.6; O2SAT 98
[2025-01-04 08:56] VITALS: O2SAT 93
[2025-01-04] MEDS: HEPARIN 5,000 UNIT/ML VIAL 5000 UNIT SUBCUT (09:36)
[2025-01-04] MEDS: ASPIRIN EC 81 MG TABLET PO (09:37)
[2025-01-04] MEDS: CLOPIDOGREL 75 MG TABLET PO (09:37)
--- NOTE | 2025-01-04 09:41 | ST.IPCSEOM ---
Visit Care Team Role Provider Type Jeison Olivier MD Primary Care Provider Physician Specialty: Internal Medicine Address: [address] [place] [address], [id number] Email: [email or web address] Mike Smith MD Family Provider Non-Staff Specialty: Family Practice Address: [address] [place] [address], [id number] Email: [email or web address] Mariela Diaz MD Emergency Provider Physician Referring Provider Specialty: Emergency Medicine Address: [address] [place] [address], [id number] Email: Regino Molina MD Admit Provider Physician Attending Provider Specialty: Internal Medicine Address: [address] [place] [address], [address] Email: [email or web address] Past Medical History (Last Reviewed 01/03/25 @ 16:36 by Regino Molina MD) Acne (Medical ~1949) Actinic keratosis (Medical ~1989) Ankle pain (Medical ~1997) Cataracts, bilateral (Medical) Coronary arteriosclerosis (Medical) Fractures (Medical) Hearing loss (Medical ~1979) Mixed hyperlipidemia (Medical) Rosacea (Medical ~1993) Skin cancer (Medical ~1964) Speech-Language Pathology Swallow Evaluation FISH HEADER Clinical Swallow Evaluation Start: 01/04/25 09:33 Freq: Status: Active Protocol: Document 01/04/25 09:33 MA (Rec: 01/04/25 09:41 MA [id number]) Clinical Swallow Evaluation Session Time Visit Start Time 09:10 Visit Stop Time 09:30 Total Visit Minutes [address] Regino Molina Reason for Referral Possible CVA Setting Assessment Location Acute Care Visit Type Note Type Initial evaluation Patient Information Identification Type Name,Wristband History Per H&P: The patient is an 84- year-old male with history of hyperlipidemia. His saw him 11:00 a.m. and then again at noon when she returned to the house. At that time he was on the bed profusely vomiting and not able to speak . He was brought to the hospital and evaluated as a code stroke. Upon his arrival he had a significant expressive aphasia and an NIH score of 7. He was able to move all extremities. The patient had rapid improvement and ultimately was discussed with tele stroke and felt to not be a great candidate for lytics as he was improving rapidly. Initial brain imaging was unremarkable including a CTA which was negative for large vessel occlusion. The patient has no history of TIA or stroke. ED course: The patient was given aspirin and Plavix in the emergency department. He does take a chronic rosuvastatin dose which she did take this morning. Additional history: The patient notes he was feeling fine this morning and went for several mi hike with his dog which he does several times a week. He was quite physically active. 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 He then became somewhat nauseated and lightheaded and went to the bedroom. He vomited multiple times and was found by his about 45 minutes after she left to be diaphoretic and somewhat in coherent. EMS was called, they had initial issues or trouble getting a blood pressure read on him and deferred to the ambulance because they could not get the blood pressure. The placed in oximeter as finger with sats of 98% and a heart rate of 55, which is his chronic heart rate. There may have been some speech issues, however he was able to convey what he wanted her to do with his computer and had no word salad or clear aphasia. There is also no slurred speech. The patient does have a history of vasovagal episodes and did describe being dizzy but not having vertigo at the time of the event. [facility] Medical History (Reviewed 09/19 @ 16:36 by Regino Molina MD) Cataracts, bilateral Rosacea (~1993) Actinic keratosis (~1989) Acne (~1949) Fractures Ankle pain (~1997) Hearing loss (~1979) Skin cancer (~1964) Coronary arteriosclerosis Mixed hyperlipidemia Pt referred for ST evaluation d/t possible CVA in order to assess swallow function. It was also noted that Pt arrived to ED with word salad, however nursing reports this has resolved. Subjective Observations Pt sitting upright in bed with family at bedside. He was awake, alert and compliant with evaluation. Ox3. Pt able to communicate effectively, reporting his speech is back to baseline. He also denies any cognitive changes or swallow difficulties. Reported by Patient/Caregiver Pain/Discomfort No Current Diet Regular (IDDSI 7) Baseline Feeding Method Independent in self-feeding The IDDSI Framework Protocol: IDDSI.1 Objective Assessment Mental Status Alert,Responsive,Cooperative Oral Integrity WFL Dentition Within normal limits Lip Function Within normal limits Observation of Lips at Rest Symmetrical Pucker Within normal limits Alternating Pucker/Lip Retraction Within normal limits Tongue Function Within normal limits Tongue Protrusion Within normal limits Tongue Retraction Within normal limits Tongue Lateralization Within normal limits Jaw Function Within normal limits Observation of Jaw at Rest Within normal limits Jaw Opening Within normal limits Jaw Closing Within normal limits Food and Liquid Trials Position During Assessment Upright (90 degrees) Liquids Trialed Thin (IDDSI 0) Solid Trials Soft & Bite-sized (IDDSI 6), Regular (IDDSI 7) Administration Type Straw,Self-feeding Oral Impairment Within functional limits Oral Phase Comments Pt consumed 1 yoly cracker, piece of pumpkin bread brought in by his family, 4 oz of thin water via straw. Pt able to feed self independently. For solids, Pt took adequate bite size, good oral acceptance and containment, adequate mastication time, and independently alternated liquids/solids. For thin wate via straw, Pt exhibited adequate suction, good oral acceptance and containment. Pharyngeal Impairment Within functional limits Pharyngeal Phase Comments No overt s/s of aspiration with all PO trials, such as coughing or choking. Pt with clear vocal quality post swallows. Fatigue/Endurance Endurance WNL The IDDSI Framework Protocol: IDDSI.1 Findings Swallowing Function Within functional limits Severity of Swallow Impairment Within functional limits Prognosis Good Impact on Safety and Functioning No limitations Recommendations Instrumental Assessment No Swallowing Treatment No Recommended Solids Regular (IDDSI 7) Recommended Liquids Thin (IDDSI 0) Other Recommendations ST recommends regular solids and thin liquids with the below mentioned safe swallowing strategies in place . ST recommended if Pt has increase in swallow difficulties during acute stay to communicate with nursing. Safety Precautions/Swallowing Remain upright (90 degrees) Recommendations during all oral intake,Upright position at least 30 minutes after meals,Small bites and sips when eating,Slow rate; swallow between bites, Alternate liquids and solids Medication Recommendations As Tolerated Discharge Recommendations Home Education Patient/Caregiver Education Described results of evaluation,Patient expressed understanding of evaluation, Family/caregivers expressed understanding of evaluation
--- NOTE | 2025-01-04 10:45 | PT.IIE ---
Surgical History (Last Reviewed 01/03/25 @ 16:36 by Regino Molina MD) Anesthesia Breast tumor (~1963) History of hernia repair (~1945) History of knee surgery (~1999) History of Mohs surgery for squamous cell carcinoma in situ of skin History of tonsillectomy Pneumothorax Medical History (Last Reviewed 01/03/25 @ 16:36 by Regino Molina MD) Acne (~1949) Actinic keratosis (~1989) Ankle pain (~1997) Cataracts, bilateral Coronary arteriosclerosis Fractures Hearing loss (~1979) Mixed hyperlipidemia Rosacea (~1993) Skin cancer (~1965) Physical Therapy Inpatient Evaluation/Re-Eval M1 PT/OT-IP Prior Functional Status Start: 01/04/25 12:09 Freq: NEEDED Status: Active Protocol: Document 01/04/25 10:45 AB (Rec: 01/04/25 12:22 AB [id number]) Medical Review Prior Functional Status Medical History Reviewed Yes Communication able to make needs known Mobility and Gait pt stated that he was indpeendent with all mobilities and ambulation without AD Social History Household Members spouse Living Arrangements House Number of Floors (Floors) One Floor Number of Stairs To Enter/Railing? 1 step to enter Home Environment Standard Height Toilet,Walk in Shower,Tub/Shower,Built-In Shower Seat,Bidet Home Equipment Hand Held Shower M2 PT-IP Current Condition Start: 01/04/25 12:09 Freq: NEEDED Status: Active Protocol: Document 01/04/25 10:45 AB (Rec: 01/04/25 12:22 AB [id number]) Physical Therapy Current Condition Current Condition Evaluation Date 01/04/25 Treatment Diagnosis TIA; difficulty in walking Onset Date 01/03/25 M3 PT-IP Subjective Start: 01/04/25 12:09 Freq: NEEDED Status: Active Protocol: Document 01/04/25 10:45 AB (Rec: 01/04/25 12:22 AB [id number]) Subjective Physical Therapy Visit Type Type Initial Evaluation Visit Start Time 10:45 Visit Stop Time 11:05 Number of CAMP PROGRAM DIRECTOR Visits 0 Physical Therapy Visit Comments Patient Comments agreeable to do PT M4 PT-IP Mobility and Gait Start: 01/04/25 12:09 Freq: NEEDED Status: Active Protocol: Document 01/04/25 10:45 AB (Rec: 01/04/25 12:22 AB [id number]) PT-Bed Mobility Assessment Supine to Sit Supine to Sit Independent PT-Transfer Assessment Sit to and From Stand Sit to and from Stand Standby Assistance,Contact Guard Assistance,1 Person Assistance,Use of Upper Extremities Equipment Transfer Assistive Device None,Gait Belt,Straight Cane Orthotic/Prosthetic Devices or Brace: No Comments Mobility Comments pt sitting on EOB. spouse and OT in room. OT stated that pt is independent with bed mobility. obtained PLOF and home setup. BP supine: 134/79 . sitting on EOB: 138/77. sit to stand CGA and able to stand CGA for standing balance without AD. BP standin /80 pt ambulated in room without AD min A and cues. presents with unsteady gait. pt sat back on EOB. BP: 142/ 83. pt agreed to use SPC. sit to stand from EOB SBA and ambulated sugn SPC in room CGA ~ 30 ft. R lateral side LOB with recovery. pt agreed to walk in the hallway and completed ~ 100 ft SBA to occasional CGA. pt completed up/down platform step using SPC SBA to CGA. pt ambulated back to his room using SPC SBA to CGA and sat back on EOB. BP sittin /79. pt agreed to use a SPC. spouse stated that they can borrow from a friend. informed pt and spouse to provide pt SBA for safety and agreed. Left pt with OT. Gait Assessment Gait Gait Assistance Required: Standby Assistance,Contact Guard Assist,Minimum Assistance,1 Person Assist Distance (Feet) 100 Assistive Devices Assistive Device None,Gait Belt,Straight Cane Orthotic/Prosthetic Devices or Brace: No Gait Deviations General Gait Pattern Ataxic,Decreased Stride Length ,Decreased Feet Clearance Factors Limiting Gait Function Factors Limiting Gait Function Decreased Activity Tolerance, Decreased Strength,Poor Balance,Poor Safety Awareness Stair Climbing Assessment Evaluation Level of Assist On Stairs Standby Assistance,Contact Guard Assistance,1 Person Assistance Devices Stair Climbing Assistive Devices Straight Cane Technique/Endurance Stair Climbing Direction Ascend and Descend Stair Climbing Technique Step to Step Number of Steps Climbed 1 Query Text: Stair Climbing Set # Repetitions (reps) 2 PT-Balance Assessment Sitting Balance and Reactions Static Sitting Balance Ability Normal Dynamic Sitting Balance Ability Good Standing Balance and Reactions Static Standing Balance Ability Fair Dynamic Standing Balance Ability Fair Device Used SPC M5 PT-IP Objective Assessments Start: 01/04/25 12:09 Freq: NEEDED Status: Active Protocol: Document 01/04/25 10:45 AB (Rec: 01/04/25 12:22 AB [id number]) Orientation Orientation/Cognition Level of Alertness Alert Orientation Name,Place,Situation Language Function Ability No Deficits Noted Safety Awareness Decreased Safety Awareness Memory Description No Deficits Noted Gross Range of Motion Lower Extremity ROM Assessment Within Functional Limits Strength Lower Extremity Strength Assessment Within Functional Limits Coordination Assessment Gross Coordination Gross Coordination WNL Muscle Tone Muscle Tone WNL Yes M6 PT-IP Treatment Start: 01/04/25 12:09 Freq: NEEDED Status: Active Protocol: Document 01/04/25 10:45 AB (Rec: 01/04/25 12:22 AB [id number]) Physical Therapy Treatment Education Education Provided Safety M7 PT-IP Assessment and Plan Start: 01/04/25 12:09 Freq: NEEDED Status: Active Protocol: Document 01/04/25 10:45 AB (Rec: 01/04/25 12:22 AB [id number]) PT Summary Assessment and Plan Potential Rehabilitation Potential Fair Status of Condition at Evaluation Stable Summary Impairments Strength,Balance,Transfers, Gait,Activity Tolerance Assessment Summary pt is an 84 y/o M who is admitted r/o CVA/TIA. pt requiring SBA to CGA with mobility and min A for ambulation without AD. Recommending use of SPC at this time. pt able to ambulate using SPC SBA to CGA. spouse will be able to assist pt. Goals Bed Mobility Goal Independent Transfer Goal Independent,Cane Gait Goal Independent,Cane Gait Distance 300 Other Goals improve transfers, ambulation without AD 300 ft mod I up/down 1 step without rails mod I Days to Meet Goals 5 Frequency of Treatment Frequency Of Treatment Once a Day Treatment Plan Physical Therapy Treatment Plan Bed Mobility Training,Transfer Training,Gait Training, Therapeutic Exercise,Balance Retraining,Discharge Planning, Hot or Cold Pack,Neuromuscular Re-ed,Coordination Retraining ,Manual Therapy Recommendations To Nursing Amount of Assist Needed 1 Person Assist Discharge Recommendations PT Discharge Recommendations Home with Assistance, Outpatient PT Transportation Needs at Discharge Private Vehicle - PT assist SBA/CGA
--- NOTE | 2025-01-04 11:25 | OT.IP.EVAL ---
Past Medical History (Last Reviewed 01/03/25 @ 16:36 by Regino Molina MD) Acne (~1949) Actinic keratosis (~1989) Ankle pain (~1997) Cataracts, bilateral Coronary arteriosclerosis Fractures Hearing loss (~1979) Mixed hyperlipidemia Rosacea (~1993) Skin cancer (~1965) Surgical History (Last Reviewed 01/03/25 @ 16:36 by Regino Molina MD) Anesthesia Breast tumor (~1963) History of hernia repair (~1945) History of knee surgery (~1999) History of Mohs surgery for squamous cell carcinoma in situ of skin History of tonsillectomy Pneumothorax Occupational Therapy Inpatient Evaluation/Re-Eval M1 PT/OT-IP Prior Functional Status Start: 01/04/25 12:09 Freq: NEEDED Status: Active Protocol: Document 01/04/25 12:48 [facility] (Rec: 01/04/25 13:11 [facility] [id number]) Medical Review Prior Functional Status Medical History Reviewed Yes Communication able to make needs known Mobility and Gait pt stated that he was indpependent with all mobilities and ambulation without AD Activities of Daily Living and IADL's Completely independent, hikes with his dog and drive his truck. Social History Household Members spouse Living Arrangements House Number of Floors (Floors) One Floor Number of Stairs To Enter/Railing? 1 step to enter Home Environment Standard Height Toilet,Walk in Shower,Tub/Shower,Built-In Shower Seat,Bidet Home Equipment Hand Held Shower M2 OT-IP Current Condition Start: 01/04/25 12:47 Freq: Status: Active Protocol: Document 01/04/25 12:48 [facility] (Rec: 01/04/25 13:11 [facility] [id number]) Occupational Therapy Current Condition Current Condition Evaluation Date 01/04/25 Treatment Diagnosis TIA Diagnosis Onset Date 01/03/25 M3 OT- IP Subjective and Pain Start: 01/04/25 12:47 Freq: Status: Active Protocol: Document 01/04/25 12:48 [facility] (Rec: 01/04/25 13:11 [facility] [id number]) OT- Subjective Occupational Therapy Visit Type Type Initial Evaluation Visit Start Time 10:21 Visit Stop Time 11:25 Occupational Therapy Visit Comments Patient Comments Pt agreed to get up, pt's in the room. Patient/Caregiver Goals TO go home. OT Pain Assessment Pain When Pain Assessed At Rest Pain Present Pain Present Denied Pain M4 OT- IP ADL's Start: 01/04/25 12:47 Freq: Status: Active Protocol: Document 01/04/25 12:48 [facility] (Rec: 01/04/25 13:11 [facility] [id number]) OT [id number] General Evaluation Self-Feeding Ability Independent OT ADL-Grooming General Evaluation Grooming Ability Independent OT ADL-Dressing General Eval Lower Body Dressing Ability Independent Comments OT Dressing Comments Able to do while seated. OT ADL-Toileting General Evaluation Toileting Ability Standby Assistance Comments OT Toileting Comments Educated pt of having night light, non slip rugs and have present if having to use the bathroom at night. OT ADL-Bathing Comments OT Bathing Comments Educated best to have his supervise and use of built in seat for safety. M5 OT- IP IADL's Start: 01/04/25 12:47 Freq: Status: Active Protocol: Document 01/04/25 12:48 [facility] (Rec: 01/04/25 13:11 [facility] [id number]) OT-Instrumental Activities of Daily Living Deficits IADL Deficits Identified Deficits Home Safety Awareness Awareness of Need for Assistance at Home Good Awareness Ability to Problem Solve Emergency Able to Problem Solve Situations Medication Management Medication Management Comments Pt's states to supervise as needed. Money Management Money Management Comments Pt's to supervise as needed. Meal Preparation Meal Preparation Caregiver Provides Assist Social Media Marketing Manager Social Media Marketing Manager Caregiver Provides Assist Driving Driving Comments Pt states will not drive at this time. M6 OT- IP Functional Cognition Start: 01/04/25 12:47 Freq: Status: Active Protocol: Document 01/04/25 12:48 [facility] (Rec: 01/04/25 13:11 [facility] [id number]) Cognitive Factors Limiting Selfcare Function Cognitive Ability Level of Alertness Alert Patient Orientation Name,Birthday,Month,Day of Week,Place,Situation Attention Span Ability Capable of Focused Attention, Capable of Sustained Attention Ability to Follow Commands Able to Follow Multi-Step Commands Memory Description Short Term Impaired Cognitive Tests SLUMS Pt scored 23/30 which implies mild neurocognitive disorder. Pt admits that recently his STM has been worse. Pt also admits that he does not drink water as much as he should. Cognitive Comments Cognitive Assessment Comments Pt scored 79 seconds on Dugger Making Part B which implies above 90th percentage for his age for task switching, visual attention, speed of processing, mental flexibility , and executive functioning. OT- Vision and Hearing OT- Hearing Assessment OT- Hearing Assessment WFL OT- Vision Assessment Visual Acuity WFL Visual Attentiveness WFL Occular Pursuits WFL Visual Convergence WFL Visual [place] WFL M7 OT- IP Mobility and Balance Start: 01/04/25 12:47 Freq: Status: Active Protocol: Document 01/04/25 12:48 [facility] (Rec: 01/04/25 13:11 [facility] [id number]) OT- Bed Mobility Assessment Supine to Sit Supine to Sit Assist Independent OT-Transfer Assessment Sit to and From Stand Sit to and from Stand Standby Assistance,Contact Guard Assistance Transfers Transfer Ability Standby Assistance,Contact Guard Assistance Technique Transfer Destination Bed,Chair,Toilet Transfer Technique Stand Step Pivot Devices Transfer Assistive Devices Gait Belt,Straight Cane Comments Mobility Comments CGA to close SBA with SPC. Pt is a little unsteady on his feet and at times his feet almost cross and needing vc to keep his feet wider apart. Educated pt's how to luiz /doff the gait belt and how best to assist pt. OT- Balance Assessment Sitting Balance and Reactions Static Sitting Balance Ability Normal Dynamic Sitting Balance Ability Good Standing Balance and Reactions Static Standing Balance Ability Fair Dynamic Standing Balance Ability Fair M8 OT- IP Objective Assessments Start: 01/04/25 12:47 Freq: Status: Active Protocol: Document 01/04/25 12:48 [facility] (Rec: 01/04/25 13:11 [facility] [id number]) OT Gross Range of Motion Upper Extremity Range of Motion Assessment Within Functional Limits OT Strength Upper Extremity Strength Assessment Within Functional Limits OT- Coordination Assessment Upper Extremity Finger to Nose Test Within Functional Limits Finger Tapping Test Within Functional Limits Comments Coordination Comments 9 hole peg right hand 29sec and left hand 32 sec -both implies approx 25th % for his age. OT-Muscle Tone Assessment Muscle Tone WNL Yes OT Sensation Assessment Comments Summary Comments WFL for sensation, proprioception, and kinesthesia. M9 OT- IP Assessment and Plan Start: 01/04/25 12:47 Freq: Status: Active Protocol: Document 01/04/25 12:48 [facility] (Rec: 01/04/25 13:11 [facility] [id number]) OT Summary Assessment and Plan Potential Rehabilitation Potential Excellent Analytic Complexity at Evaluation Low Summary OT Impairments Balance,Functional Mobility, Dressing,Toileting,Bathing, Toilet Transfers,Shower Transfers,Activity Tolerance Progress Towards Goals Progressing Toward Goals Assessment Summary Pt low complexity and main barriers are decreased dynamic balance, decreased STM however per pt was getting worse in general, and now having to use a SPC. Pt has a very supportive to assist pt. Pt will benefit form outpt PT to hopefully getting back to walking with his dog. Goals Dressing Goal Independent Toileting Goal Independent Bathing Goal Independent Toilet Transfer Goal Independent Shower Transfer Goal Independent OT-Other Goals Goals based on no adaptive device Days to Meet Goals 10 Frequency of Treatment Other frequency 5x/week Discharge Recommendations OT Discharge Recommendations Home with Assistance, Outpatient PT Transportation Needs at Discharge Private Vehicle
[2025-01-04 11:45] VITALS: BP 155/86; PULSE 53; RESP 16; TEMP 36.7; O2SAT 98
--- NOTE | 2025-01-04 11:59 | PM.DS.1 ---
History of Present Illness History of Present Illness Date Patient Seen: 01/04/25 Chief complaint: Code Stroke Narrative: Per admission documentation: Summary: The patient is an 84-year-old male with history of hyperlipidemia. His saw him 11:00 a.m. and then again at noon when she returned to the house. At that time he was on the bed profusely vomiting and not able to speak. He was brought to the hospital and evaluated as a code stroke. Upon his arrival he had a significant expressive aphasia and an NIH score of 7. He was able to move all extremities. The patient had rapid improvement and ultimately was discussed with tele stroke and felt to not be a great candidate for lytics as he was improving rapidly. Initial brain imaging was unremarkable including a CTA which was negative for large vessel occlusion. The patient has no history of TIA or stroke. ED course: The patient was given aspirin and Plavix in the emergency department. He does take a chronic rosuvastatin dose which she did take this morning. Additional history: The patient notes he was feeling fine this morning and went for several mi hike with his dog which he does several times a week. He was quite physically active. 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 He then became somewhat nauseated and lightheaded and went to the bedroom. He vomited multiple times and was found by his about 45 minutes after she left to be diaphoretic and somewhat in coherent. EMS was called, they had initial issues or trouble getting a blood pressure read on him and deferred to the ambulance because they could not get the blood pressure. The placed in oximeter as finger with sats of 98% and a heart rate of 55, which is his chronic heart rate. There may have been some speech issues, however he was able to convey what he wanted her to do with his computer and had no word salad or clear aphasia. There is also no slurred speech. The patient does have a history of vasovagal episodes and did describe being dizzy but not having vertigo at the time of the event. Discharge Providers Provider Date of admission: 01/03/25 15:33 Discharge Date: 01/04/25 Primary care physician: Jeison Olivier MD Consults: 01/03/25 16:54 Consult to Discharge Planning Routine Comment: Consult to Occupational Therapy Evaluate & Treat Comment: Physician Instructions: Evaluate and treat Consult to Physical Therapy Evaluate & Treat Comment: Physician Instructions: Evaluate and Treat Consult to Speech Therapy Evaluate & Treat Comment: Physician Instructions: Evaluate and treat 01/03/25 19:03 Consult to Speech Therapy Evaluate & Treat Comment: Physician Instructions: Evaluate and treat Discharge provider: Jorge Luis Gilbert DO Summary Hospital Course Discharge Diagnosis: TIA HLD History of vasovagal syncope Hospital Course: This is an 84-year-old male with a past medical history of vasovagal hypotension and hyperlipidemia who presented after the above history in the HPI concerning for possible TIA vs vasovagal episode. He was noted to be mildly hypertensive in the emergency room upon arrival. He thinks that his symptoms lasted for just under an hour, maybe 40 minutes or so before resolution. He had no recurrence of systems. He had a negative MRI, an unremarkable echocardiogram. Given negative evaluation, along with prolonged symptoms it is not entirely clear if this represented a TIA or vasovagal episode which is certainly possible given the vomiting that he experienced. Nonetheless we discussed the risks and benefits of treatment for possible TIA and he elected for treatment of this with lifelong aspirin and statin, as well as clopidogrel for 21 days. A1c was checked and was normal at 5.2, LDL was 101 on lipid panel. No other changes to his home medications were recommended at the time of discharge. Time Spent with Patient Time spent: Greater than 30 minutes Exam Vital Signs (past 8 hours): - 01/04/25 05:13 01/04/25 07:30 01/04/25 08:56 Temperature 97.9 F Pulse Rate 54 L 53 L Respiratory Rate 16 14 Blood Pressure 114/69 146/85 H Pulse Oximetry 98 98 93 Oxygen Delivery Method Nasal Cannula Oxygen Flow Rate 0 1.5 01/04/25 11:45 Temperature 98.0 F Pulse Rate 53 L Respiratory Rate 16 Blood Pressure 155/86 H Pulse Oximetry 98 Oxygen Delivery Method Oxygen Flow Rate 0 Oxygen Delivery Method Nasal Cannula Oxygen Flow Rate 0 Narrative Exam Narrative: NAD, alert and oriented, fluent speech, calm. Normocephalic skull, EOMI, anicteric sclera, symmetric pupils. Oropharynx unremarkable, no droop. Neck supple, midline trachea, no adenopathy. Lungs clear, normal rate and effort. Heart regular, no murmur gallop or rub. Abdomen is soft, non distended and non tender. Extremities are free of edema. Skin is free of rash or lesions. Joints are not swollen or deformed. Judgment appears to be normal. Objective Labs 01/04/25 05:10 01/04/25 05:10 Labs: Laboratory Results - last 24 hr 01/03/25 01/03/25 01/03/25 13:05 13:43 15:40 WBC 6.5 RBC 4.71 Hgb 14.5 Hct 43.3 MCV 92.0 MCH 30.8 MCHC 33.5 RDW 13.5 Plt Count 253 Neut % (Auto) 51.1 Lymph % (Auto) 31.5 [place] % (Auto) 13.2 Eos % (Auto) 3.7 Baso % (Auto) 0.5 Neut # (Auto) 3300 Lymph # (Auto) 2000 [place] # (Auto) 900 Eos # (Auto) 200 Baso # (Auto) 0 PT 11.5 INR 1.0 APTT 28 Sodium 138 Potassium 3.5 Chloride 105 Carbon Dioxide 21 L BUN 20 Creatinine 0.96 Estimated GFR > 60 BUN/Creatinine Ratio 20.8 Glucose 146 H Hemoglobin A1c 5.2 Calcium 9.4 Magnesium 2.1 Total Bilirubin 0.4 AST 40 ALT 31 Alkaline Phosphatase 80 Total Creatine Kinase 97 Troponin I < 0.012 Total Protein 6.9 Albumin 4.1 Globulin 2.8 Albumin/Globulin Ratio 1.5 Triglycerides 171 H Cholesterol 183 LDL Cholesterol, Calc 104 H HDL Cholesterol 45 U Opiates 300ng/mL cut Negative Ur Oxycodone Screen Negative Urine Methadone Screen Negative Ur Barbiturates Screen Negative U Tricyclic Antidepress Negative Ur Phencyclidine Scrn Negative Ur Amphetamines Screen Negative U Methamphetamines Scrn Negative Ur MDMA Scrn (Ecstasy) Negative U Benzodiazepines Scrn Negative Urine Cocaine Screen Negative U Marijuana (THC) Screen Positive H Urine pH Normal Urine Specific [place] Normal Ur Creatinine Normal 01/04/25 05:10 WBC 8.3 RBC 4.33 L Hgb 13.5 Hct 39.6 L MCV 91.4 MCH 31.3 MCHC 34.2 RDW 13.4 Plt Count 210 Neut % (Auto) 72.1 D Lymph % (Auto) 15.2 L [place] % (Auto) 11.1 Eos % (Auto) 1.1 L Baso % (Auto) 0.5 Neut # (Auto) 6000 Lymph # (Auto) 1300 [place] # (Auto) 900 Eos # (Auto) 100 Baso # (Auto) 0 PT INR APTT Sodium 136 L Potassium 3.8 Chloride 105 Carbon Dioxide 25 BUN 20 Creatinine 0.82 Estimated GFR > 60 BUN/Creatinine Ratio 24.4 H Glucose 105 Hemoglobin A1c Calcium 8.7 Magnesium Total Bilirubin AST ALT Alkaline Phosphatase Total Creatine Kinase Troponin I Total Protein Albumin Globulin Albumin/Globulin Ratio Triglycerides Cholesterol LDL Cholesterol, Calc HDL Cholesterol U Opiates 300ng/mL cut Ur Oxycodone Screen Urine Methadone Screen Ur Barbiturates Screen U Tricyclic Antidepress Ur Phencyclidine Scrn Ur Amphetamines Screen U Methamphetamines Scrn Ur MDMA Scrn (Ecstasy) U Benzodiazepines Scrn Urine Cocaine Screen U Marijuana (THC) Screen Urine pH Urine Specific [place] Ur Creatinine [facility] Medical History Cataracts, bilateral Rosacea (~1993) Actinic keratosis (~1989) Acne (~1949) Fractures Ankle pain (~1997) Hearing loss (~1979) Skin cancer (~1964) Coronary arteriosclerosis Mixed hyperlipidemia Surgical History Anesthesia Pneumothorax History of knee surgery (~1999) History of hernia repair (~194) Breast tumor (~1963) History of Mohs surgery for squamous cell carcinoma in situ of skin History of tonsillectomy Family History Father Cancer Mother Cancer Grandfather Cancer Sister Age: 96 Dementia Social History household members: spouse Smoking Status: Never smoker alcohol intake: current Discharge Plan Discharge Plan Patient Disposition: Home Provider Discharge Comment: You were admitted to the hospital with a possible TIA. MRI was negative. This may have been a TIA or vaso-vagal episode which you have previously described. Started on medications presuming TIA. Please follow up with Dr. Olivier as previously scheduled. Treatment for TIA consists of aspirin and plavix for 21 total days and statin therapy. Baby aspirin (81mg) and statin therapy is recommended to continue after this for the remainder of your life (depending on discussions with PCP regarding risk-benefits long-term given the exact likelihood of TIA is not known at this time). No other medication changes are recommended. Discharge orders & Medications Prescriptions: New clopidogrel 75 mg Tablet 75 mg PO DAILY 20 Days Qty: 20 0RF aspirin 81 mg Tablet,Delayed Release (Dr/Ec) 81 mg PO DAILY Qty: 90 0RF atorvastatin 40 mg tablet 40 mg PO BEDTIME 30 Days Qty: 30 0RF No Action mecobalamin (vitamin B12) [B12 Active] 1,000 mcg tablet,chewable 1,000 mcg PO DAILY Adult 50 Plus Probiotic 4 billion cell capsule 4,000 mmu cells PO DAILY Rx Instructions: administer with a meal coQ10 (ubiquinol) [Qunol Tin CoQ10] 100 mg capsule 100 mg PO DAILY Follow up/Referrals: Jeison Olivier MD [Primary Care Provider] - Diet/Activity/Treatments Diet: Diet as Tolerated and Regular Activity: As tolerated, no restrictions. Visit Report/Discharge Packet Instructions: DI for Transient Ischemic Attack Stand Alone Forms: Patient Portal/API, Stroke Signs & Symptoms Discharge Data Primary Care Provider: Jeison Olivier V Attending Provider: Regino Molina Admit Date/Time: 01/03/25 15:33 Quality VTE Deep Vein Thrombosis/Pulmonary Embolism Present on Admission: No
--- NOTE | 2025-01-04 14:23 | CM.DANOTE ---
DCP Assessment note pt is a 84yo M admitted with concerns for stroke vs vasovagal episode. MRI negative, echo pending. PCP [facility] Payer Medicare and [employer]. FLIGHT DATA TECHNICIAN reviewed EMR. Per provider in morning rounds, potential dc later today. Per RN, symptoms resolved after pt came up to the floor. Per PT/OT, pt indep with mobility at baseline. rec home with assistance/cane for home use. per RN, spouse left to get cane for pt prior to dc home. adrianneley no CM needs. FLIGHT DATA TECHNICIAN met with pt in room, introduced self and role. pt resting in bed. confirms indep at home at baseline. denies any CM needs/questions. preference dc home with spouse. pt says he spoke with [facility] already about OP f/u. FLIGHT DATA TECHNICIAN messaged TCM P: dc home with spouse support and OP f/u. no additional CM needs at this time or identified barriers to safe dc home. will continue to follow as needed. FLAKO Stokes Discharge Planning/Care Management CM Discharge Assessment Start: 01/04/25 14:22 Freq: Status: Active Protocol: Document 01/04/25 14:22 (Rec: 01/04/25 14:23 [id number]) Discharge Planning Assessment Assigned Tarp Repairer FLAKO Weeks DPOA/Assigned Designee Name spousePaola Contact Information [phone] Advance Directives? No History Provided By Patient,Medical Record Prior Living Arrangements House Household Members spouse Independent with ADL's Yes Is patient alert and oriented? Yes DME Already Rented / Owned Cane Discharge Plan Home Referrals Initiated None needed Review Status In Process Please Provide Date Initial DC 01/04/25 Assessment Was Performed Next Review Type Continued Stay Review
[2025-01-04 15:00] VITALS: BP 116/63; PULSE 52; RESP 16; TEMP 36.8; O2SAT 99
== END 2025-01-04 16:00 | disposition home or self-care (01) ==
LOC: ED 15:21 → AC 01-04 09:02
PROVIDERS: Admitting Provider Hospitalist; Emergency Provider Emergency Medicine; Family Provider Family Medicine; PCP Internal Medicine; Referring Provider Emergency Medicine; Visit Provider Hospitalist
DX: R47.01 Aphasia (principal); R11.10 Vomiting, unspecified; E78.5 Hyperlipidemia, unspecified; R29.702 NIHSS score 2
CPT/HCPCS: 36415; 70450; 70496; 70498; 70551; 71045; 80048; 80053; 80061; 80305; 81003; 82550; 82962; 83036; 83735; 84484; 85025; 85610; 85730; 92610; 93005; 93306; 94760; 96372; 96374; 97116; 97129; 97161; 97165; 97530; 97535; 99285; 99291; G0378; Q3014; J1644; J2405; Q9967